=== PATIENT | female | born 1990 | race Caucasian/White ===

== ENCOUNTER 2018-12-09 19:00 | Inpatient (IN) | payer OTHER, SELFPAY ==
--- NOTE | 2018-12-09 20:03 | PCM.HP.OB ---
History Date of Admission: 12/09/18 Final JAGDEEP: 12/17/18 Final JAGDEEP Source: US <20 weeks Gestational age: 38 Weeks and 6 Days History of this : This is a 28 year-old, 2 para 0-0-1-0 at 38-6/7 weeks presents for cervical ripening for 39-week induction for suspected intrauterine growth restriction. Patient's was uncomplicated until 37 weeks she was noted to be measuring size less than dates. Estimated weight on ultrasound was 7th percentile. Amniotic fluid volume was normal. Denies any vaginal bleeding, leaking of fluid, or contractions. She reports good movement. Past medical history significant for abnormal Pap smears and ovarian cysts Past surgical history is significant for a LEEP of the cervix Surgical history: 1 first trimester miscarriage, no D&C Smoking Status: Never smoker Alcohol: None Number of Fetus(es): 1 Heart Tracing: Normal baseline, moderate variability, spontaneous accelerations. No decelerations, category 1 and reactive TOCO Analysis: Rare contractions, the patient does not appreciate them History Past Pregnancies: Past Pregnancies Delivery Date Name GA/Weeks Outcome Route Weight Gender Labor Length Anesthesia Delivery Location Provider FOB Expected Delivery Method: Spontaneous Vaginal Review of Systems Constitutional: Denies: Anorexia, Chills, Fever Eyes: Denies: Double vision Cardiovascular: Denies: Chest Pain, Edema Respiratory: Denies: Cough, Shortness of Breath Gastrointestinal: Denies: Nausea, Vomiting Gynecological: Denies: Vaginal bleeding, Vaginal discharge, Vaginal itching Skin: Denies: Rash Neurological: Denies: Balance problems, Double vision, Change in Speech, Headaches Hematologic/ Lymphatic: Denies: Anemia, Easy Bruising, Easy Bleeding, Hx of blood clot Physical Exam General: Alert, Cooperative, No apparent distress Cardiovascular: Regular rate Lungs: Normal air movement Abdomen: Soft, Non Tender, Non-Distended, Gravid, Appropriate for Gestational Age Extremities:: No edema Neurological: Cranial nerves II-XII grossly intact, Deep Tendon Reflexes 2+/4 and Symmetrical 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 Plan 39-week induction of labor for suspected intrauterine growth restriction. Pelvis is clinically adequate to expect vaginal delivery. May have nitrous oxide, Nubain or epidural as needed for pain control. Risk benefits and alternatives to induction were discussed with patient, questions were answered her satisfaction and she desired to proceed. Consent was signed. Procedure note: Blount placed into internal cervical os and inflated to 30 cc. Placement over internal os confirmed. Patient and fetus tolerated the procedure well. Will give one dose of cytotec, then pitocin titration
[2018-12-09] MEDS: 0.9% Normal Saline 100 ML IV.SOLN. INTRA-UTER (20:19)
[2018-12-09 20:31] LABS: Absolute Lymphocyte Count 1.64 X10^3/uL (0.83-4.51); Absolute Neutrophil Count 5.7 X10^3/uL (2.0-7.7); Basophil# 0.01 X10^3/uL; Basophil% 0.1 % (0-1); Eosinophil# 0.01 X10^3/uL; Eosinophils% 0.1 % (0-5); Hematocrit 35.4 % (37-47); Hemoglobin 12.7 g/dL (12.0-15.0); Lymphocyte # 1.64 X10^3/ul (4.0); Lymphocyte % 20.2 % (19-41); Mean Corp Hgb Conc 35.9 g/dL (32-36); Mean Corpuscular Hgb 33.3 pg (27.0-32.0); Mean Corpuscular Volume 92.9 fL (81-99); Mean Platelet Vol. 13.1 fl (6.2-12.0); Monocyte# 0.71 X10^3/uL; Monocyte% 8.8 % (0-10); NRBC Flagged by Analyzer 0 % (0-5); Neutrophil % 70.4 % (47-70); Platelet Count 134 K/mm3 (150-450); RBC Distribution Width CV 11.7 % (11.6-14.6); RBC Distribution Width SD 39.8 fl (35.1-43.9); Red Blood Count 3.81 M/mm3 (4.2-5.4); White Blood Count 8.1 K/mm3 (4.4-11.0)
[2018-12-09 20:45] VITALS: BMI 26.4
[2018-12-09] MEDS: 0.9% Saline Lock 10 ML Syringe IV (20:50)
[2018-12-09] MEDS: CLARIFY ORDER NOTE (20:57)
[2018-12-10] MEDS: Lactated Ringers 1,000 ML 50 ML IV ×2 (01:37→11:56)
[2018-12-10] MEDS: 0.9% Saline Lock 10 ML Syringe IV (02:30)
[2018-12-10] MEDS: fentaNYL-bupivacaine (epidural) 100 ML BAG EPIDURAL (07:43)
[2018-12-10] MEDS: Oxytocin 30 units/NS 500 ml 30 UNITS/500 ML IV.SOLN 334 UNITS IV (12:32)
[2018-12-10] MEDS: Methylergonovine 0.2 MG/ML Ampul IM (12:41)
--- NOTE | 2018-12-10 12:46 | OP.PCM_ITS ---
Vaginal Delivery Maternal Presentation: Medically Indicated Induction Method of Induction: Blount Bulb, Amniotomy, Cytotec Medical Reason for Induction: - - suspected IUGR Amniotic Membrane Rupture Type: Artificial Amniotic Fluid Description: Clear Final JAGDEEP: 12/17/18 Final JAGDEEP Source: US <20 weeks Gestational age: 39 Weeks and 0 Days Date of Procedure: 12/10/18 Pre-Operative Diagnosis: labor Post-Operative Diagnosis: same Surgery/ Procedure Performed: Spontaneous Vaginal Delivery Type of Anesthesia: Epidural Description of Procedure: A vigorous female was delivered MARYANNE over a small first-degree perineal l aceration. The infant was delivered through the loose nuchal cord easily without difficulty. The remainder the infant was delivered with maternal pushing and gentle traction only in less than 15 seconds. The Pitocin infusion was initiated for active management of the third stage. The cord was clamped and cut after 1 minute. The infant was attended to by the waiting nursing staff. The placenta was delivered spontaneously and was small with a very thin cord. The uterus was explored and a small piece of membranes was removed. The cervix and vagina were intact. All first-degree laceration was repaired with a 3-0 Vicryl repeat [id number] stitch. Sponge and needle counts were correct. There was a small amount of trickling with fundal massage, the uterus to be firm again. After a few minutes massage was performed and a small clot was expressed. So decision was made to give 1 dose of Methergine for mild atony without hemorrhage. A vaginal sweep was completed by me. Presentation: MARYANNE Placental Delivery Description: Spontaneous Placenta Disposition: [facility] Cord Vessel Description: 3 Vessels Nuchal Cord Compression: With compression Cord Entanglement: Around neck x 1, loose Drain: - - none Estimated Blood Loss: 400 A gender: Female (1 minute): 8 (5 minute): 9 Episiotomy Description: None Laceration: 1st degree - perineal Medications given after delivery: IV Pitocin, IM Methergin - x1 Complications: None
[2018-12-10] MEDS: Oxytocin 30 units/NS 500 ml 30 UNITS/500 ML IV.SOLN 167 UNITS IV (13:02)
[2018-12-10] MEDS: Ibuprofen 600 MG Tablet PO (17:50)
[2018-12-10 18:20] VITALS: BP 122/73; PULSE 64; RESP 14; TEMP 36.3
[2018-12-10 19:45] VITALS: BP 123/81; PULSE 61; RESP 15; TEMP 36.1
[2018-12-10] MEDS: Acetaminophen 500 MG Tablet 1000 MG PO (21:52)
[2018-12-11 00:28] VITALS: BP 117/72; PULSE 62; RESP 16; TEMP 37; O2SAT 97
[2018-12-11 04:17] VITALS: BP 122/77; PULSE 63; RESP 15; TEMP 36.1
--- NOTE | 2018-12-11 07:32 | PCM.PN.OB ---
Subjective: Pain well controlled. Average lochia. - Physical Exam General: Alert, Cooperative, No apparent distress Vital Signs Temp Pulse Resp BP Pulse Ox 97.0 F L 63 15 122/77 H 97 12/11/18 04:17 12/11/18 04:17 12/11/18 04:17 12/11/18 04:17 12/11/18 00:28 Oxygen Delivery Method Room Air Weight: 63.503 kg Body Mass Index (BMI) 26.4 Intake and Output for Last 24 Hours 12/09/18 12/10/18 12/11/18 23:59 23:59 23:59 Intake Total 200 / 200 2346 / 2346 Output Total 150 / 150 3200 / 3200 Balance 50 / 50 -854 / -854 Medical Necessity - Tobacco Use Smoking Status: Never smoker Assessment/Plan day #1 status post vaginal delivery. Infant is breast-feeding doing well. Routine care for patient. Likely discharge both home tomorrow.
[2018-12-11] MEDS: Ibuprofen 600 MG Tablet PO ×2 (08:56→15:43)
[2018-12-11 09:03] VITALS: BP 115/68; PULSE 70; RESP 16; TEMP 36.6
[2018-12-11 11:41] VITALS: BP 119/68; PULSE 66; RESP 16; TEMP 36.6
[2018-12-11 16:00] VITALS: BP 124/73; PULSE 67; RESP 15; TEMP 36.6
[2018-12-11] MEDS: Senna/Docusate Sodium 1 Tablet PO (19:07)
[2018-12-11 20:15] VITALS: BP 111/69; PULSE 62; RESP 16; TEMP 36.5; O2SAT 98
[2018-12-12 02:45] VITALS: BP 125/87; PULSE 57; RESP 16; TEMP 36.5; O2SAT 97
[2018-12-12] MEDS: Ibuprofen 600 MG Tablet PO (05:37)
--- NOTE | 2018-12-12 08:03 | PCM.PN.OB ---
Subjective: Pain well controlled, average lochia. - Physical Exam General: Alert, Cooperative, No apparent distress Vital Signs Temp Pulse Resp BP Pulse Ox 97.7 F L 57 L 16 125/87 H 97 12/12/18 02:45 12/12/18 02:45 12/12/18 02:45 12/12/18 02:45 12/12/18 02:45 Oxygen Delivery Method Room Air Weight: 63.503 kg Body Mass Index (BMI) 26.4 Intake and Output for Last 24 Hours 12/10/18 12/11/18 12/12/18 23:59 23:59 23:59 Intake Total 2346 / 2346 Output Total 3200 / 3200 Balance -854 / -854 Medical Necessity - Tobacco Use Smoking Status: Never smoker Assessment/Plan day #2 status post vaginal delivery. Patient is doing well. Discharge home with routine instructions. Infant is breast-feeding and doing well.
--- NOTE | 2018-12-12 08:04 | DCINST_ITS ---
Discharge Diet: No Restrictions Discharge Activity: Return to Normal Activity, May not drive while taking narcotic pain medications., May Shower May resume sexual activity in: 4-6 weeks Additional Activity Instructions:: Nothing in the vagina for 4-6 weeks. You may return to work/school in 6 weeks. Call your doctor if your incision/area has: Continuous Slow Oozing, Sudden Increased Bleeding, Increased Pain/ Swelling, Increased Redness, Foul Smelling Discharge Additional Instructions: If you experience any of the following, contact your healthcare provider. * Bleeding that soaks a pad every hour for 2 hours * Fever 100.4 or higher * Unrelieved incision or abdominal pain * Swelling, redness, discharge or bleeding from your incision or episiotomy site * Your incision begins to separate * Problems urinating (including inability to urinate or burning while urinating). * Visual changes * Severe headache * Flu-like symptoms * Pain or redness in one of both of your breasts * Pain, warmth, tenderness or swelling in your legs, especially the calf area * Frequent nausea and vomiting * Symptoms of depression or anxiety If you experience any of the following, call 911 or go to the nearest Emergency Room. * Chest pain * Problems breathing * Seizure activity * Partial or complete paralysis of a body part, slurred speech, weakness or drooping of the face, or a sudden inability to walk or hold your balance Allergies/Adverse Reactions: Allergies No Known Allergies Allergy (Verified 12/09/18 20:38) Medications to take at Discharge Fish Oil Concentrate Softgel PO DAILY 12/09/18 Vit,Calc76/Iron/Folic [Pnv 29-1 Tablet] 12/09/18 Please Follow Up With: Wilma Bhagat MD - [phone] When: Call to make an appointment with your doctor in 6 weeks. If you had elevated Blood Pressure or 4th degree laceration you will need to be seen in 2 weeks. Primary Care Physician: Care Physician,No Primary [Primary Care Provider] - Test Results: Test results from this visit will be discussed in further detail at your follow- up appointment, if applicable.
--- NOTE | 2018-12-12 08:04 | PCM.DCVAG ---
Discharge Diet: No Restrictions Discharge Activity: Return to Normal Activity, May not drive while taking narcotic pain medications., May Shower May resume sexual activity in: 4-6 weeks Additional Activity Instructions:: Nothing in the vagina for 4-6 weeks. You may return to work/school in 6 weeks. Call your doctor if your incision/area has: Continuous Slow Oozing, Sudden Increased Bleeding, Increased Pain/ Swelling, Increased Redness, Foul Smelling Discharge Additional Instructions: If you experience any of the following, contact your healthcare provider. Bleeding that soaks a pad every hour for 2 hours Fever 100.4 or higher Unrelieved incision or abdominal pain Swelling, redness, discharge or bleeding from your incision or episiotomy site Your incision begins to separate Problems urinating (including inability to urinate or burning while urinating). Visual changes Severe headache Flu-like symptoms Pain or redness in one of both of your breasts Pain, warmth, tenderness or swelling in your legs, especially the calf area Frequent nausea and vomiting Symptoms of depression or anxiety If you experience any of the following, call 911 or go to the nearest Emergency Room. Chest pain Problems breathing Seizure activity Partial or complete paralysis of a body part, slurred speech, weakness or drooping of the face, or a sudden inability to walk or hold your balance Allergies/Adverse Reactions: Allergies No Known Allergies Allergy (Verified 12/09/18 20:38) Medications to take at Discharge Fish Oil Concentrate Softgel PO DAILY 12/09/18 Vit,Calc76/Iron/Folic [Pnv 29-1 Tablet] 12/09/18 Please Follow Up With: Wilma Bhagat MD - [phone] When: Call to make an appointment with your doctor in 6 weeks. If you had elevated Blood Pressure or 4th degree laceration you will need to be seen in 2 weeks. Primary Care Physician: Care Physician,No Primary [Primary Care Provider] - Test Results: Test results from this visit will be discussed in further detail at your follow-up appointment, if applicable.
[2018-12-12 08:50] VITALS: BP 121/83; PULSE 72; RESP 18; TEMP 36.4
== END 2018-12-12 12:50 | disposition home or self-care (01) | DRG 807 ==
PROVIDERS: Admitting Provider Obstetrics & Gynecology; Visit Provider Obstetrics & Gynecology
DX: O36.5930 Maternal care for other known or suspected poor fetal growth, third trimester, not applicable or unspecified (principal); Z37.0 Single live birth; O75.89 Other specified complications of labor and delivery; O70.0 First degree perineal laceration during delivery; O69.1XX0 Labor and delivery complicated by cord around neck, with compression, not applicable or unspecified; Z3A.39 39 weeks gestation of pregnancy
CPT/HCPCS: 59025; 59050; 85025; 86850; 86900; 99218; J7120; A4216; G0378

== ENCOUNTER → 2020-05-06 17:34 | Outpatient (CLI) | payer MEDICAID, SELFPAY | PROVIDERS: Visit Provider Obstetrics & Gynecology | DX: Z03.818 Encounter for observation for suspected exposure to other biological agents ruled out (principal) | CPT/HCPCS: 87635; C9803; U0003 ==

== ENCOUNTER 2020-05-09 23:30 | Inpatient (IN) | payer MEDICAID, SELFPAY ==
[2020-05-09 23:22] VITALS: BP 140/93; PULSE 72; TEMP 36.5
[2020-05-09 23:33] VITALS: BP 129/89; PULSE 69
[2020-05-09 23:43] VITALS: BP 126/84; PULSE 62
[2020-05-09 23:49] VITALS: BMI 27.1
[2020-05-10] VITALS (39 sets, daily range): BP systolic 102–160; BP diastolic 55–80; PULSE 62–86; RESP 16–18; TEMP 36.7–37.4; O2SAT 83–100
[2020-05-10 00:13] LABS: ROM Internal Control Test YES-OK TO RESULT pt. (Internal QC)
[2020-05-10 00:14] LABS: ROM Patient Test POSITIVE (Negative)
[2020-05-10] MEDS: Lactated Ringers 500 ML 999 ML IV (00:33)
[2020-05-10 00:53] LABS: Absolute Lymphocyte Count 2.25 X10^3/uL (0.83-4.51); Absolute Neutrophil Count 6.5 X10^3/uL (2.0-7.7); Hematocrit 38.6 % (37-47); Hemoglobin 13.6 g/dL (12.0-15.0); Lymphocyte # 2.25 X10^3/ul (4.0); Lymphocyte % 23.2 % (19-41); Mean Corp Hgb Conc 35.2 g/dL (32-36); Mean Corpuscular Hgb 31.9 pg (27.0-32.0); Mean Corpuscular Volume 90.4 fL (81-99); Mean Platelet Vol. 13.3 fl (6.2-12.0); Monocyte# 0.87 X10^3/uL; NRBC Flagged by Analyzer 0 % (0-5); Neutrophil # 6.54 X10^3/uL (2.7-7.7); Neutrophil % 67.4 % (47-70); Platelet Count 127 K/mm3 (150-450); RBC Distribution Width CV 12.3 % (11.6-14.6); RBC Distribution Width SD 40.3 fl (35.1-43.9); Red Blood Count 4.27 M/mm3 (4.2-5.4); White Blood Count 9.7 K/mm3 (4.4-11.0)
[2020-05-10] MEDS: Lactated Ringers 1,000 ML 200 ML IV (01:04)
[2020-05-10] MEDS: fentaNYL-bupivacaine (epidural) 100 ML BAG EPIDURAL (01:39)
--- NOTE | 2020-05-10 01:50 | HP.PCM_ITS ---
- Problem List (1) H/O LEEP Status: Acute (2) Short interval between pregnancies affecting , antepartum Status: Acute (3) IUGR (intrauterine growth restriction) in prior , Status: Acute (4) Positive GBS test Status: Acute (5) History of HPV infection Status: Acute (6) Active labor at term Status: Acute History Date of Admission: 12/09/18 Final JAGDEEP: 05/18/20 Final JAGDEEP Source: US <20 weeks Gestational age: 38 Weeks and 6 Days History of this : This is a 29 year-old, G [3], P [1011], at 38 weeks 6 days gestational age. Presented with contractions and SROM at 9pm this evening. Upon arrival cervical change and ROM plus positive and admitted for labor. Allergies No Known Allergies Allergy (Verified 05/09/20 23:50) Home Medications: Home Medications Fish Oil Concentrate Softgel PO DAILY 12/09/18 Vit,Calc76/Iron/Folic [Pnv 29-1 Tablet] 1 tab DAILY 12/09/18 Smoking Status: Never smoker Alcohol: None Number of Fetus(es): 1 NST - FHR Rate Baby A Baseline: 125 Variability:: Moderate Accelerations:: 15 x 15 Decelerations:: None NST Reactive:: Yes FHR Category:: Category I Uterine Activity:: Every 2-3 minutes, strong History Past Pregnancies: Past Pregnancies Delivery Date Name GA/ Weeks Outcome Route Wt Infant Sex Labor Length Anesthesia Delivery Location Provider FOB Labs: Mom's Problem List Problem Status Onset Code H/O LEEP Acute Z98.890 Short interval between pregnancies affecting , antepartum Acute O09.899 IUGR (intrauterine growth restriction) in prior , Acute O09.299 Positive GBS test Acute B95.1 History of HPV infection Acute Z86.19 Active labor at term Acute Mom's Labs & Results 05/09/20 05/10/20 05/10/20 23:20 00:34 00:34 WBC 9.7 RBC 4.27 Hgb 13.6 Hct 38.6 MCV 90.4 MCH 31.9 MCHC 35.2 RDW Std Deviation 40.3 RDW Coeff of Kristy 12.3 Plt Count 127 L MPV 13.3 H Immature Gran % (Auto) 0.400 Neut % (Auto) 67.4 Lymph % (Auto) 23.2 [place] % (Auto) 9.0 Eos % (Auto) 0.0 Baso % (Auto) 0.0 Absolute Neuts (auto) 6.5 Absolute Lymphs (auto) 2.25 Nucleated RBC % 0 Vag Amniotic Fld Detect POSITIVE H Blood Type O POSITIVE Antibody Screen NEGATIVE Course Did the patient receive Yes care? Labs Blood Type: O RH: POSITIVE RPR/VDRL/Syphilis Nonreactive Rubella status Immune HbSAg Negative Date Done: 11/05/19 Chlamydia Negative Gonorrhea Negative HIV/AIDS Non-Reactive Group B Strep: Positive Current Obstetrical History Gestational Diabetes No Incompetent Cervix No Infertility No IUGR No Macrosomia No Hypertension/Pre-eclampsia No Placenta Previa/Abruption No PTL/PROM No Uterine anomaly No Oligohydramnios No Polyhydramnios No Multiple gestation No Past Medical History Asthma No Diabetes No Hypertension No Heart disease No Mitral valve prolapse No Neurologic/Seizure disorder/ No Migraines Kidney disease No Liver disease No Varicosities No Clotting disorders/Hx of DVT No Thyroid Dysfunction No Other medical diseases No Psychiatric disorders No Major trauma No Abnormal PAP smear No Sleep apnea No Mammogram in the last 2 years No Social History Marital Status: Alleged father James Blackman Hx Smoking No Smoking Status Never smoker Expected Infant Delivery Method: Spontaneous Vaginal Review of Systems Constitutional: Denies: Chills, Fever, Weight Change HEENT: Denies: Head Aches, Sinus Congestion, Sinus Drainage Cardiovascular: Denies: Chest Pain, Palpitations Respiratory: Denies: Cough, Shortness of breath at rest, Sputum production Gastrointestinal: Denies: Abdominal Pain, Nausea, Vomiting Genitourinary: Denies: Dysuria Musculoskeletal: Denies: Joint Pain, Joint Tenderness Skin: Denies: Rash, Wounds Neurological: Denies: Numbness, Tingling, Focal weakness Psychiatric: Denies: Anxiety, Depression, Homicidal Ideations, Suicidal Ideations Hematologic/ Lymphatic: Denies: Easy Bruising, Easy Bleeding Physical Exam Vitals: Vital Signs Temp Pulse BP Pulse Ox 97.7 F L 86 125/78 H 99 05/09/20 23:22 05/10/20 01:48 05/10/20 01:46 05/10/20 01:48 General: Alert, Oriented x3 HEENT: Atraumatic, Normocephalic Cardiovascular: Regular rate, Regular Rhythm, No murmurs Lungs: Clear to auscultation, Normal air movement, No rhonchi, No wheeze Abdomen: Soft, Gravid Extremities:: No edema 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 A:Active labor at term Category 1 FHT SROM P: 1) Admit to labor and delivery 2) Routine labs. IV placement 3) GBS positive, PCN for prophylaxis 4) Epidural for pain management 5) History of COVID during . COVID negative on 05/06/20 6) [facility] physician, notified of patient status
[2020-05-10] MEDS: Oxytocin 30 units/NS 500 ml 30 UNITS/500 ML IV.SOLN 334 UNITS IV (03:12)
--- NOTE | 2020-05-10 03:24 | PCM.OPRPT ---
Problem List (1) H/O LEEP Status: Acute (2) Short interval between pregnancies affecting , antepartum Status: Acute (3) IUGR (intrauterine growth restriction) in prior , Status: Acute (4) Positive GBS test Status: Acute (5) History of HPV infection Status: Acute (6) Active labor at term Status: Acute (7) Vaginal delivery Status: Acute Vaginal Delivery Maternal Presentation: Active Labor Amniotic Membrane Rupture Type: Spontaneous at home - SROM at home, ROM plus positive. AROM for moderate amount of meconium stained fluid. Amniotic Fluid Description: Thick meconium Final JAGDEEP: 05/18/20 Final JAGDEEP Source: LMP Gestational age: 38 Weeks and 6 Days Date of Procedure: 05/10/20 Pre-Operative Diagnosis: Active Labor Post-Operative Diagnosis: Vaginal delivery Surgery/ Procedure Performed: Spontaneous Vaginal Delivery Type of Anesthesia: Epidural Description of Procedure: Progressed to complete, comfortable with epidural. 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 of viable male over intact perineum at 0309. APGARS 9,9. head delivered with nuchal hand, body forth coming. Placed on maternal abdomen, strong cry and vigorous. Mouth and nares suctioned for secretions. Pitocin started for active 3rd stage management. Cord clamped and cut after pulsations ceased. Placenta delivered intact, 3 vessel cord. Perineum inspected and intact. Fundus firm and hemostasis achieved. Vaginal sweep completed by me and sponge and instrument count correct. Mom and baby stable, planning to breastfeed, family bonding well. notified of delivery. Presentation: Vertex Placental Delivery Description: Spontaneous Placenta Disposition: [facility] Cord Vessel Description: 3 Vessels Cord Entanglement: None Estimated Blood Loss: 450 ml A gender: Male (1 minute): 9 (5 minute): 9 Episiotomy Description: None Laceration: None Medications given after delivery: IV Pitocin Complications: None
[2020-05-10] MEDS: Ibuprofen 600 MG Tablet PO ×3 (04:10→18:13)
--- NOTE | 2020-05-10 06:35 | NURSING ---
Epidural catheter removed, blue tip intact.
--- NOTE | 2020-05-10 06:40 | NURSING ---
Pt voided in shower for first void. Pt stated she felt that bladder is empty after voiding.
[2020-05-10] MEDS: 0.9% Saline Lock 10 ML Syringe IV (06:51)
[2020-05-10] MEDS: Acetaminophen 500 MG Tablet 1000 MG PO (09:15)
[2020-05-10] MEDS: Senna/Docusate Sodium 1 Tablet PO (11:49)
--- NOTE | 2020-05-10 11:59 | NURSING ---
using ice packs prn
[2020-05-11] MEDS: Ibuprofen 600 MG Tablet PO ×3 (00:40→13:37)
[2020-05-11] MEDS: Acetaminophen 500 MG Tablet 1000 MG PO ×2 (02:21→11:45)
[2020-05-11 03:34] VITALS: BP 116/70; PULSE 71
[2020-05-11 03:35] VITALS: BP 117/70; PULSE 71; RESP 16; TEMP 36.6
[2020-05-11 06:18] LABS: Hemoglobin 10.9 g/dL (12.0-15.0); Mean Corp Hgb Conc 34.1 g/dL (32-36); Mean Corpuscular Hgb 32.2 pg (27.0-32.0); Mean Corpuscular Volume 94.4 fL (81-99); Mean Platelet Vol. 12.3 fl (6.2-12.0); Platelet Count 109 K/mm3 (150-450); RBC Distribution Width CV 12.8 % (11.6-14.6); RBC Distribution Width SD 43.7 fl (35.1-43.9); Red Blood Count 3.39 M/mm3 (4.2-5.4)
--- NOTE | 2020-05-11 08:23 | PCM.PN.OB ---
Patient Problems: Active and Suspected Problems H/O LEEP (Acute) Short interval between pregnancies affecting , antepartum (Acute) IUGR (intrauterine growth restriction) in prior , (Acute) Positive GBS test (Acute) History of HPV infection (Acute) Active labor at term (Acute) Vaginal delivery (Acute) Subjective: Patient seen at bedside. Feeling good. Denies any pain. Currently without difficulty. Lochia decreasing. Ambulating and voiding without difficulty. Requesting discharge home later today. Denies any SOB, CP, or dizziness. Objective: HGB- 13.6 to 10.9 Platelets 127 to 109 - Physical Exam Vitals/I&O's: Vital Signs Temp Pulse Resp BP Pulse Ox 97.8 F 71 16 117/70 97 05/11/20 03:35 05/11/20 03:35 05/11/20 03:35 05/11/20 03:35 05/10/20 08:00 Oxygen Delivery Method Room Air Weight: 143 lb 4.807 oz Body Mass Index (BMI) 27.1 Intake and Output for Last 24 Hours 05/09/20 05/10/20 05/11/20 23:59 23:59 23:59 Intake Total 1525.0 / 1525.0 Balance 1525.0 / 1525.0 General: Alert, Oriented x3, Cooperative HEENT: Atraumatic Oral: Moist Mucosa Neck: Supple Lungs: Normal air movement Cardiovascular: Regular rate Abdomen: Bowel Sounds Present, Soft, Non Tender Extremities: No edema, Capillary Refill Less than 3 Seconds, No Calf Tenderness Skin: No rashes Neurological: Cranial nerves II-XII grossly intact Psych/Mental Status: Normal Affect, Appropriate Laboratory Results 05/11/20 06:07: WBC 8.0, RBC 3.39 L, Hgb 10.9 L, Hct 32.0 L, MCV 94.4, MCH 32.2 H, MCHC 34.1, RDW Std Deviation 43.7, RDW Coeff of Kristy 12.8, Plt Count 109 L, MPV 12.3 H Current Medications Acetaminophen (Acetaminophen 500 Mg Tablet) 1,000 mg PO Q8H PRN PRN PRN Reason: Pain Score 1-3 Last Admin: 05/11/20 02:21 Dose: 1,000 mg Documented by: Bisacodyl (Bisacodyl 10 Mg Suppository) 10 mg RECTAL UD PRN PRN Reason: If no BM Dibucaine (Dibucaine 30 Gm Tube) 1 applic TOPICAL TID PRN PRN; Protocol PRN Reason: Discomfort Hydrocortisone (Hydrocortisone 2.5% Crm) 1 applic TOPICAL TID PRN PRN; Protocol PRN Reason: Discomfort Ibuprofen (Ibuprofen 600 Mg Tablet) 600 mg PO Q6H PRN PRN PRN Reason: Pain Score 1-3 Last Admin: 05/11/20 06:41 Dose: 600 mg Documented by: Methylergonovine Maleate (Methylergonovine 0.2 Mg/Ml Ampul) 0.2 mg IM X1 PRN PRN Reason: Excess bleeding/uterine atony Ondansetron HCl (Ondansetron 4 Mg/2 Ml Vial) 4 mg IV Q4H PRN PRN PRN Reason: Nausea Senna/Docusate Sodium (Senna/Docusate Sodium 1 Tablet) 1 - 2 tablet PO DAILY PRN PRN PRN Reason: Constipation Last Admin: 05/10/20 11:49 Dose: 2 tablet Documented by: Simethicone (Simethicone 80 Mg Tablet) 80 mg PO PCHS PRN PRN Reason: Indigestion/Stomach pain Sodium Chloride (0.9% Saline Lock 10 Ml Syringe) 5 - 15 ml IV UD PRN PRN Reason: SALINE FLUSH Last Admin: 05/10/20 06:51 Dose: 10 ml Documented by: Medical Necessity - Tobacco Use Smoking Status: Never smoker Assessment/Plan All Active Problems H/O LEEP (Acute) Short interval between pregnancies affecting , antepartum (Acute) IUGR (intrauterine growth restriction) in prior , (Acute) Positive GBS test (Acute) History of HPV infection (Acute) Active labor at term (Acute) Vaginal delivery (Acute)
--- NOTE | 2020-05-11 08:27 | DCINST_ITS ---
Discharge Diet: No Restrictions Discharge Activity: Return to Normal Activity May resume sexual activity in: 6-8 weeks Additional Instructions: Start Ferrous Sulfate 325 mg daily for iron supplementation If you experience any of the following, contact your healthcare provider. * Bleeding that soaks a pad every hour for 2 hours * Fever 100.4 or higher * Unrelieved incision or abdominal pain * Swelling, redness, discharge or bleeding from your incision or episiotomy site * Your incision begins to separate * Problems urinating (including inability to urinate or burning while urinating). * Visual changes * Severe headache * Flu-like symptoms * Pain or redness in one of both of your breasts * Pain, warmth, tenderness or swelling in your legs, especially the calf area * Frequent nausea and vomiting * Symptoms of depression or anxiety If you experience any of the following, call 911 or go to the nearest Emergency Room. * Chest pain * Problems breathing * Seizure activity * Partial or complete paralysis of a body part, slurred speech, weakness or drooping of the face, or a sudden inability to walk or hold your balance Allergies/Adverse Reactions: Allergies No Known Allergies Allergy (Verified 05/09/20 23:50) Medications to take at Discharge Vit,Calc76/Iron/Folic [Pnv 29-1 Tablet] 1 tab DAILY 12/09/18 Primary Care Physician: Care Physician,No Primary [Primary Care Provider] - Test Results: Test results from this visit will be discussed in further detail at your follow- up appointment, if applicable. Proposed Discharge Date: 05/11/20
--- NOTE | 2020-05-11 08:27 | PCM.DCVAG ---
Discharge Diet: No Restrictions Discharge Activity: Return to Normal Activity May resume sexual activity in: 6-8 weeks Additional Instructions: Start Ferrous Sulfate 325 mg daily for iron supplementation If you experience any of the following, contact your healthcare provider. Bleeding that soaks a pad every hour for 2 hours Fever 100.4 or higher Unrelieved incision or abdominal pain Swelling, redness, discharge or bleeding from your incision or episiotomy site Your incision begins to separate Problems urinating (including inability to urinate or burning while urinating). Visual changes Severe headache Flu-like symptoms Pain or redness in one of both of your breasts Pain, warmth, tenderness or swelling in your legs, especially the calf area Frequent nausea and vomiting Symptoms of depression or anxiety If you experience any of the following, call 911 or go to the nearest Emergency Room. Chest pain Problems breathing Seizure activity Partial or complete paralysis of a body part, slurred speech, weakness or drooping of the face, or a sudden inability to walk or hold your balance Allergies/Adverse Reactions: Allergies No Known Allergies Allergy (Verified 05/09/20 23:50) Medications to take at Discharge Vit,Calc76/Iron/Folic [Pnv 29-1 Tablet] 1 tab DAILY 12/09/18 Primary Care Physician: Care Physician,No Primary [Primary Care Provider] - Test Results: Test results from this visit will be discussed in further detail at your follow-up appointment, if applicable. Proposed Discharge Date: 05/11/20
[2020-05-11 08:50] VITALS: BP 119/71; PULSE 73; RESP 18; TEMP 36.8
[2020-05-11 08:57] VITALS: BP 119/71; PULSE 73
[2020-05-11] MEDS: Senna/Docusate Sodium 1 Tablet PO (10:42)
[2020-05-11 14:28] VITALS: BP 115/68; PULSE 74
[2020-05-11 14:30] VITALS: BP 115/68; PULSE 74; RESP 16; TEMP 37.2
== END 2020-05-11 15:40 | disposition home or self-care (01) | DRG 560 ==
LOC: WPOUT 23:32 → WP 23:32
PROVIDERS: Admitting Provider Advanced Practice Midwife; Referring Provider Advanced Practice Midwife; Visit Provider Advanced Practice Midwife
DX: O42.02 Full-term premature rupture of membranes, onset of labor within 24 hours of rupture (principal); O77.0 Labor and delivery complicated by meconium in amniotic fluid; O99.824 Streptococcus B carrier state complicating childbirth; Z3A.38 38 weeks gestation of pregnancy; Z37.0 Single live birth; Z86.16 Personal history of COVID-19; Z87.59 Personal history of other complications of pregnancy, childbirth and the puerperium
CPT/HCPCS: 59025; 59050; 84112; 85025; 85027; 86850; 86900; 86901; 99218; J7120; A4216; G0378

== ENCOUNTER 2022-01-21 23:42 | Outpatient (CLI) | payer MEDICAID, SELFPAY ==
[2022-01-22 00:08] VITALS: PULSE 92; TEMP 37.5; O2SAT 99
[2022-01-22 00:10] VITALS: BP 133/68; PULSE 73; BMI 26.6
[2022-01-22 00:19] VITALS: TEMP 37.5
[2022-01-22 01:48] VITALS: PULSE 71; O2SAT 97
[2022-01-22 02:54] VITALS: PULSE 72; O2SAT 99
--- NOTE | 2022-01-22 07:47 | OB.TRI.NOTE ---
HPI - General General Date of Service: 01/22/22 HPI Narrative GAMAL ORDOÑEZ, is a 31 F @ 38.1 weeks who presents c/o ctx, r/o labor PFSH PFSH Home Medications vitamin no.76-iron,carbonyl 29 mg iron-folic acid 1 mg tablet 1 tab DAILY 12/09/18 [History Last Taken 01/21/22 09:00] Fish Oil 1 cap PO/SL DAILY 01/22/22 [History Last Taken 01/21/22 09:00] iron 1 tab PO/SL Check with primary doctor 01/22/22 [History Last Taken 01/21/22 09:00] Allergy/AdvReac Type Severity Reaction Status Date / Time No Known Allergies Allergy Verified 01/22/22 00:11 Social History Smoking Status: Never smoker History Elective abortions Hx Para 1 Spontaneous abortions Hx # Term Pregnancies Ectopic pregnancies Hx # Pregnancies Multiple births # of living children NST FHR Rate Baby A Baseline: 120 Variability:: Moderate Accelerations:: 15 x 15 Decelerations:: None NST Reactive:: Yes FHR Category:: Category I Uterine Activity:: irregular Assessment & Plan (1) 37 weeks gestation of : (2) False labor after 37 completed weeks of gestation: PLAN: Plan @ 37.1 weeks with contractions- not in labor 1) cervical exam stable- dc home 2) NST reactive- well being established
== END 2022-01-22 03:05 | disposition home or self-care (01) ==
LOC: WPOUT 23:49 → WP 23:49
PROVIDERS: Visit Provider Obstetrics & Gynecology
DX: O47.1 False labor at or after 37 completed weeks of gestation (principal); Z3A.37 37 weeks gestation of pregnancy
CPT/HCPCS: 59025; 59050; 99218; G0378

== ENCOUNTER 2022-02-03 06:45 | Inpatient (IN) | payer MEDICAID, SELFPAY ==
[2022-02-03] VITALS (43 sets, daily range): BP systolic 20–140; BP diastolic 55–80; PULSE 58–83; RESP 16–18; TEMP 36.4–37.1; O2SAT 97–100; BMI 26.2
[2022-02-03] MEDS: LACTATED RINGERS 500 ML 999 ML IV ×2 (06:50→07:56)
[2022-02-03 07:12] LABS: Absolute Lymphocyte Count 2.45 X10^3/uL (0.83-4.51); Absolute Neutrophil Count 5.5 X10^3/uL (2.0-7.7); Basophil# 0.02 X10^3/uL; Basophil% 0.2 % (0-1); Eosinophil# 0.02 X10^3/uL; Eosinophils% 0.2 % (0-5); Hematocrit 40.8 % (37-47); Lymphocyte # 2.45 X10^3/ul (0.83-4.51); Mean Corp Hgb Conc 34.3 g/dL (32-36); Mean Corpuscular Hgb 32.1 pg (27.0-32.0); Mean Corpuscular Volume 93.6 fL (81-99); Mean Platelet Vol. 13.5 fl (6.2-12.0); Monocyte# 0.72 X10^3/uL; Monocyte% 8.2 % (0-10); NRBC Flagged by Analyzer 0 % (0-5); Neutrophil # 5.51 X10^3/uL (2.7-7.7); Neutrophil % 62.9 % (47-70); Platelet Count 126 K/mm3 (150-450); RBC Distribution Width CV 12.1 % (11.6-14.6); Red Blood Count 4.36 M/mm3 (4.2-5.4); White Blood Count 8.8 K/mm3 (4.4-11.0)
[2022-02-03] MEDS: Lactated Ringers 1,000 ML 200 ML IV (07:21)
--- NOTE | 2022-02-03 07:35 | HP.PCM.OB_ITS ---
HPI - General General Date of Admission: 02/03/22 Date of Service: 02/03/22 HPI Narrative GAMAL ORDOÑEZ, is a 31 F who presents c/o contractions- no VB or LOF. on arrival she was 6cm. PFSH [facility] Home Medications vitamin no.76-iron,carbonyl 29 mg iron-folic acid 1 mg tablet 1 tab PO DAILY 12/09/18 [History Last Taken 02/02/22 08:00] Fish Oil 1 cap PO/SL DAILY 01/22/22 [History Last Taken 02/02/22 08:00] iron 1 tab PO/SL DAILY Check with primary doctor 01/22/22 [History Last Taken 02/02/22 08:00] Allergy/AdvReac Type Severity Reaction Status Date / Time No Known Allergies Allergy Verified 01/22/22 00:11 Social History Smoking Status: Never smoker History Elective abortions Hx Para 2 Spontaneous abortions Hx # Term Pregnancies Ectopic pregnancies Hx # Pregnancies Multiple births # of living children NST FHR Rate Baby A Baseline: 125 Variability:: Moderate Accelerations:: 15 x 15 Decelerations:: None NST Reactive:: Yes FHR Category:: Category I Uterine Activity:: q2-4 Vital Signs Vital Signs Vital Signs: 02/03/22 06:45 02/03/22 06:45 02/03/22 06:46 Temperature Temperature Source Temporal Pulse Rate 79 Blood Pressure 125/78 H BP Systolic 125 BP Diastolic 78 Pulse Ox 02/03/22 06:46 02/03/22 07:05 02/03/22 07:05 Temperature 97.5 F L Temperature Source Pulse Rate 77 Blood Pressure BP Systolic BP Diastolic Pulse Ox 98 02/03/22 07:10 02/03/22 07:10 02/03/22 07:32 Temperature Temperature Source Pulse Rate 77 Blood Pressure 130/67 H BP Systolic 130 BP Diastolic 67 Pulse Ox 99 02/03/22 07:32 02/03/22 07:31 02/03/22 07:31 Temperature Temperature Source Temporal Pulse Rate 70 Blood Pressure BP Systolic BP Diastolic Pulse Ox 100 02/03/22 07:31 Temperature 98.7 F Temperature Source Pulse Rate Blood Pressure BP Systolic BP Diastolic Pulse Ox Weight Weight: 63.049 kg Body Mass Index (BMI) 26.2 Physical Exam Const alert and oriented x3 General Appearance: cooperative HEENT normocephalic GI GI Narrative: Gravid, non tender to palpation. OB / External & Speculum: external exam normal Extremity normal to inspection Skin no rashes or lesions noted Neuro oriented x3 and CN's II-XII intact bilaterally Psych Appearance: grossly normal Labs Labs Labs: Blood Type O POSITIVE Antibody Screen NEGATIVE Hct 40.8 % (37-47) Hgb 14.0 g/dL (12.0-15.0) Rhogam given: No Assessment & Plan (1) 39 weeks gestation of : (2) Active labor: (3) Short interval between pregnancies affecting , antepartum: (4) H/O LEEP: PLAN: Plan Admit to L&D [place] FHR/TOCO Epidural if requested for pain Monitor VS Anticipate
[2022-02-03] MEDS: fentaNYL-bupivacaine (epidural) 100 ML BAG EPIDURAL (07:42)
[2022-02-03] MEDS: Ondansetron 4 MG/2 ML Vial IV (07:59)
[2022-02-03] MEDS: Oxytocin 30 units/NS 500 ml 30 UNITS/500 ML IV.SOLN 334 UNITS IV (09:50)
--- NOTE | 2022-02-03 10:03 | EX.PCM.OBRPT ---
Assessment & Plan (1) 39 weeks gestation of : (2) (spontaneous vaginal delivery): Maternal Data Information Final JAGDEEP: 02/04/22 Gestational age: 39 6/7 Vaginal Delivery Maternal Presentation Maternal Presentation: Active Labor Operative Information Date of Procedure: 02/03/22 Pre-Operative Diagnosis: labor Post-Operative Diagnosis: same Surgery / Procedure Performed: Spontaneous Vaginal Delivery Type of Anesthesia: Epidural Special Medications: none Drain: - (none) Estimated Blood Loss: 300 Time of Delivery: 09:46 Findings Description of Procedure: A vigorous [female] infant was delivered [MARYANNE] over . The remainder the infant was delivered with maternal pushing and gentle traction only in less than 15 seconds. The Pitocin infusion was initiated for active management of the third stage. The cord was clamped and cut [after 1 minute]. The was attended to by the waiting nursing staff. The placenta was delivered spontaneously and intact. The cervix and vagina were intact. Sponge and needle counts were correct. A vaginal sweep was completed by me. The urethra was swabbed with Betadine and a straight cath was done in the usual sterile fashion and 50 cc of urine was obtained. Presentation: MARYANNE Amniotic Membrane Rupture Type: Artificial Amniotic Fluid Description: Moderate meconium Placental Delivery Description: Spontaneous Placenta Disposition: [facility] Cord Vessel Description: 3 Vessels Cord Entanglement: None Infant A Gender: Female (Keila) (1 minute): 8 (5 minute): 9 Delayed Cord Clamping: Yes Post Vaginal Delivery Medications Given After Delivery: IV Pitocin Episiotomy Description: None Laceration: None Complication Complications: None
[2022-02-03] MEDS: Ibuprofen 600 MG Tablet PO ×3 (10:59→23:16)
[2022-02-03] MEDS: Senna/Docusate Sodium 1 Tablet PO (10:59)
[2022-02-03] MEDS: 0.9% Saline Lock 10 ML Syringe IV (13:00)
[2022-02-03] MEDS: Acetaminophen 500 MG Tablet 1000 MG PO (19:54)
[2022-02-04 00:26] VITALS: BP 107/58; PULSE 59; RESP 15; TEMP 36.4
[2022-02-04] MEDS: Acetaminophen 500 MG Tablet 1000 MG PO (02:02)
[2022-02-04 04:00] VITALS: BP 99/62; PULSE 64; RESP 15; TEMP 36.4
[2022-02-04] MEDS: Ibuprofen 600 MG Tablet PO ×2 (05:19→11:14)
[2022-02-04 08:45] VITALS: BP 104/64; PULSE 70; RESP 16; TEMP 36.3; O2SAT 97
--- NOTE | 2022-02-04 08:50 | PCM.PN.OB ---
Subjective Subjective pain well controlled, light lochia. NO other concenrs Objective Data Objective Data Vital Signs: Vital Signs Temp Pulse Resp BP Pulse Ox 97.5 F L 64 15 99/62 97 02/04/22 04:00 02/04/22 04:00 02/04/22 04:00 02/04/22 04:00 02/03/22 12:03 Weight: 63.049 kg Body Mass Index (BMI) 26.2 Intake & Output: Intake and Output for Last 24 Hours 02/02/22 02/03/22 02/04/22 23:59 23:59 23:59 Intake Total 2393.34 / 2393.34 Output Total 350 / 350 Balance 2043.34 / 2043.34 Lab / Micro Data Result Diagrams: 02/03/22 06:50 Labs: Laboratory Results - last 24 hr 02/03/22 06:50: Blood Type O POSITIVE, Antibody Screen NEGATIVE Physical Exam Const alert and no apparent distress Narrative: Fundus firm, below umbilicus. Assessment & Plan (1) (spontaneous vaginal delivery): PLAN: Plan day #1. is breast-feeding and doing well. Patient is doing well. Desires discharge home later today.
--- NOTE | 2022-02-04 08:51 | PCM.DC.SUM ---
Providers Date of Admission: 02/03/22 Primary Care Physician: Nicol Primary Care Phys Reason For Visit: VAGINAL DELIVERY Diagnosis Discharge Diagnosis (1) (spontaneous vaginal delivery): Status: Acute Code(s): O80 - Encounter for full-term uncomplicated delivery Plan day #1. is breast-feeding and doing well. Patient is doing well. Desires discharge home later today. Medications at Discharge Home Medications vitamin no.76-iron,carbonyl 29 mg iron-folic acid 1 mg tablet 1 tab PO DAILY 12/09/18 Fish Oil 1 cap PO/SL DAILY 01/22/22 iron 1 tab PO/SL DAILY Check with primary doctor 01/22/22 Hospital Course Operations None Summary of Care Provided Hospital Course: Patient was admitted on the morning of 02/03/2022 with spontaneous labor. She has spontaneous vaginal delivery on 02/03/2022. By day 1 she was ambulating, urinating tolerating regular diet and desired discharge home with routine follow-up. Weight / BMI Weight Weight: 63.049 kg Body Mass Index (BMI) 26.2 ABG / Lab / Microbiology Data Result Diagrams: 02/03/22 06:50 Laboratory: Laboratory Results - last 24 hr 02/03/22 06:50: Blood Type O POSITIVE, Antibody Screen NEGATIVE D/C Instructions May resume sexual activity in: 6 weeks Please Follow Up With: Wilma Bhagat MD When: Follow up with our office in 1-2 and 6 weeks or as needed. [phone] Meaningful Use Info Meaningful Use Diagnoses (Choose all that apply): None applicable Discharge Plan Admission Admit Date/Time: 02/03/22 06:45 Primary Reason for Your Visit: Vaginal delivery Attending Provider: Wilma Bhagat Primary Care Provider: Care PhysicianNicol Primary Discharge Orders/Prescriptions Prescriptions: No Action vit,[id number] 1 EACH tablet 1 tab PO DAILY Fish Oil 1 cap PO/SL DAILY iron 1 tab PO/SL DAILY Referrals / Follow Up: Care PhysicianNicol Primary [Primary Care Provider] - Disposition Disposition (needs filled in before D/C Order can be placed): Home, Self Care
[2022-02-04] MEDS: Senna/Docusate Sodium 1 Tablet PO (11:14)
[2022-02-04 14:00] VITALS: BP 111/70; PULSE 65; RESP 16; TEMP 36.6; O2SAT 99
== END 2022-02-04 14:30 | disposition home or self-care (01) | DRG 560 ==
LOC: WPOUT 06:49 → WP 06:49
PROVIDERS: Obstetrics & Gynecology; Admitting Provider Obstetrics & Gynecology; Visit Provider Obstetrics & Gynecology
DX: O77.0 Labor and delivery complicated by meconium in amniotic fluid (principal); Z37.0 Single live birth; Z28.310 Unvaccinated for COVID-19; Z3A.39 39 weeks gestation of pregnancy; Z28.9 Immunization not carried out for unspecified reason
CPT/HCPCS: 59025; 59050; 85025; 86850; 86900; 86901; 99218; J7120; A4216; G0378; J2405

== ENCOUNTER 2023-12-26 05:11 | Inpatient (IN) | payer MEDICAID, SELFPAY ==
[2023-12-26] VITALS (32 sets, daily range): BP systolic 107–135; BP diastolic 63–92; PULSE 63–88; RESP 16; TEMP 36.7–37.3; O2SAT 93–100; BMI 27.0
[2023-12-26 05:04] LABS: ROM Internal Control Test YES-OK TO RESULT pt. (Internal QC); ROM Patient Test POSITIVE (Negative)
[2023-12-26 05:05] LABS: Record Kit Lot#, ROM+ K1866
[2023-12-26 05:49] LABS: Absolute Lymphocyte Count 1.52 X10^3/uL (0.83-4.51); Absolute Neutrophil Count 7.9 X10^3/uL (2.0-7.7); Basophil# 0.01 X10^3/uL; Basophil% 0.1 % (0-1); Eosinophil# 0.02 X10^3/uL; Eosinophils% 0.2 % (0-5); Hematocrit 38.6 % (37-47); Hemoglobin 13.6 g/dL (12.0-15.0); Lymphocyte # 1.52 X10^3/ul (0.83-4.51); Mean Corp Hgb Conc 35.2 g/dL (32-36); Mean Corpuscular Hgb 32.6 pg (27.0-32.0); Mean Corpuscular Volume 92.6 fL (81-99); Monocyte# 0.63 X10^3/uL; Monocyte% 6.2 % (0-10); NRBC Flagged by Analyzer 0 % (0-5); Neutrophil # 7.94 X10^3/uL (2.7-7.7); Neutrophil % 78.2 % (47-70); POSITIVE MORPHOLOGY YES; Platelet Count 128 K/mm3 (150-450); RBC Distribution Width CV 12.4 % (11.6-14.6); RBC Distribution Width SD 42.4 fl (35.1-43.9); Red Blood Count 4.17 M/mm3 (4.2-5.4); White Blood Count 10.2 K/mm3 (4.4-11.0)
[2023-12-26 05:53] LABS: Differential Indicated SCAN CRITERIA MET
[2023-12-26 06:23] LABS: Syphilis Antibodies Non-reactive
--- NOTE | 2023-12-26 06:41 | HP.PCM.OB_ITS ---
HPI - General General Date of Admission: 12/26/23 HPI Narrative GAMAL ORDOÑEZ, is a 33 F who presents at 39w5d in active labor. SROM for clear fluid while triage and contractions started. Maternal Data Information JAGDEEP Calculator Estimated Delivery Date Method Current WG Current Estimate 12/28/23 Manual 39w 5d PFSH PFSH Medical History (Updated 12/26/23 @ 07:29 by Adina Rivera CNM) Circumvallate placenta depression Anxiety Home Medications ?Medication ?Instructions ?Recorded ?Last Taken ?Type vitamin 1 tab PO DAILY 12/09/18 12/25/23 09:00 History no.76-iron,carbonyl 29 mg `1 tab iron-folic acid 1 mg tablet Fish Oil 1 cap PO/SL DAILY 01/22/22 12/25/23 09:00 History 1 cap iron 1 tab PO/SL DAILY Check with 01/22/22 02/02/22 08:00 History primary doctor Allergy/AdvReac Type Severity Reaction Status Date / Time No Known Allergies Allergy Verified 12/26/23 03:17 Surgical History (Updated 12/26/23 @ 05:36 by Opal Jeffries) [place] teeth removed H/O LEEP Social History Smoking Status: Never smoker History Elective abortions Hx Para 3 Spontaneous abortions Hx # Term Pregnancies Ectopic pregnancies Hx # Pregnancies Multiple births # of living children NST FHR Rate Baby A Baseline: 140, audible increases, no decreases IA ROS Constitutional Constitutional: Reports systems reviewed and no addt'l complaints, except as documented; Denies headache(s) Eyes Eyes: Denies acute decrease in peripheral vision, blurry vision or change in vision ENT HEENT: Reports systems reviewed and no addt'l complaints, except as documented Cardiovascular Cardiovascular: Denies chest pain or dizziness Respiratory/Chest Respiratory/Chest: Denies cough, dyspnea, dyspnea on exertion, shortness of breath at rest or shortness of breath with exertion Gastrointestinal Gastrointestinal: Denies diarrhea, nausea or vomiting Genitourinary Genitourinary: Denies abdominal discomfort Musculoskeletal Musculoskeletal: Denies limited range of motion Integumentary Integumentary: Reports systems reviewed and no addt'l complaints, except as documented Neurologic Neurologic: Reports systems reviewed and no addt'l complaints, except as documented Psychiatric Psychiatric: Reports systems reviewed and no addt'l complaints, except as documented Endocrine Endocrinology: Reports systems reviewed and no addt'l complaints, except as documented Hematologic/Lymphatic Hematologic/Lymphatic: Reports systems reviewed and no addt'l complaints, except as documented Allergic/Immunologic Allergic/Immunologic: Reports systems reviewed and no addt'l complaints, except as documented Vital Signs Vital Signs Vital Signs: 12/26/23 03:17 12/26/23 03:17 12/26/23 03:18 Pulse Rate 63 65 Blood Pressure 135/92 H BP Systolic 135 BP Diastolic 92 Pulse Ox 12/26/23 03:18 Pulse Rate Blood Pressure BP Systolic BP Diastolic Pulse Ox 100 Weight Weight: 143 lb 1.28 oz Body Mass Index (BMI) 27.0 Physical Exam Const alert and oriented x3 General Appearance: cooperative Orientation / Consciousness: awake, oriented to person, oriented to place and oriented to time Exam Limitations: no limitations HEENT normocephalic Head and Scalp: normal to inspection, normocephalic and atraumatic Face and Sinus: normal facial exam Eyes General Eye: normal appearance of both eyes Neck full ROM Chest Chest: symmetrical chest wall rise Resp normal respiratory effort and normal air movement Auscultation: clear to auscultation bilaterally Cardio regular rate, regular rhythm, S1 normal heart sound, S2 normal heart sound, no murmurs, no rub, no gallops and no clicks GI normal to inspection, nondistended, normoactive bowel sounds and non-tender appearance of the vagina normal Bladder / Kidney Exam: no CVA tenderness Back/Spine normal ROM Extremity normal to inspection and full ROM Skin no rashes or lesions noted Neuro oriented x3, CN's II-XII intact bilaterally and moves all extremities Sensorium / Orientation: awake, alert and oriented to person Motor Exam: clonus absent Deep Tendon Reflexes: Rt Patellar (L4): 2+ and Lt Patellar (L4): 2+ Labs Labs Labs: Blood Type O POSITIVE Antibody Screen NEGATIVE Hct 38.6 % (37-47) Hgb 13.6 g/dL (12.0-15.0) Syphilis Total Ab Non-reactive Rhogam given: No RPR negative Rubella Immune HepC Negative HBsAG negative HIV nonreactive O positive 1hr GCT normal GBS negative Assessment & Plan (1) Active labor at term: (2) Circumvallate placenta: (3) History of depression: (4) History of LEEP (loop electrosurgical excision procedure) of cervix complicating : PLAN: Plan 1) Admit to labor and delivery 2) Routine labs 3) Reactive NST, IA for labor and if reactive 4) Desires waterbirth, consent signed 5) collaborative physician and notified of patient status, above assessment, and plan 6) GBS negative
[2023-12-26 07:49] LABS: Platelet Morphology LARGE
[2023-12-26] MEDS: Oxytocin 15 Units/NS 250ml 15 UNITS/250 ML IV.SOLN 334 UNITS IV (10:24)
--- NOTE | 2023-12-26 10:44 | EX.PCM.OBRPT ---
Assessment & Plan (1) Vaginal delivery: Maternal Data Information JAGDEEP Calculator Estimated Delivery Date Method Current WG Current Estimate 12/28/23 Manual 39w 5d Vaginal Delivery Maternal Presentation Maternal Presentation: Active Labor and Spontaneous Rupture of Membranes Operative Information Date of Procedure: 12/26/23 Pre-Operative Diagnosis: Active labor at term, SROM Post-Operative Diagnosis: , waterbirth Surgery / Procedure Performed: Spontaneous Vaginal Delivery Type of Anesthesia: None Estimated Blood Loss: 300ml Time of Delivery: 10:13 Findings Description of Procedure: Progressed to complete with urge to push. Tub for pain management. of viable female infant over intact perineum, waterbirth. APGARS 7,9 respectively. head delivered with body immediately forthcoming. Placed on maternal abdomen, strong cry. Mouth and nares suctioned for secretions. Pitocin started for active 3rd stage management. Cord doubly clamped and cut by FOB after pulsations ceased, delayed cord clamping. Lifted out of tub and transferred back to bed without difficultly. Placenta delivered intact via melendez. 3 vessel cord intact. Perineum inspected and revealed intact. Fundus firm and hemostasis achieved. EBL 300ml. Mom and baby stable, planning to breastfeed. Family bonding well. notified of delivery. Presentation: Vertex and SIMON Amniotic Membrane Rupture Type: Spontaneous (Rupture of forebag at 8cm) Amniotic Fluid Description: Clear Placental Delivery Description: Spontaneous Placenta Disposition: [facility] Cord Entanglement: None Infant A Gender: Female (1 minute): 7 (5 minute): 9 Delayed Cord Clamping: Yes Post Vaginal Delivery Medications Given After Delivery: IV Pitocin Episiotomy Description: None Laceration: None Complication Complications: None
[2023-12-26] MEDS: Oxytocin 15 Units/NS 250ml 15 UNITS/250 ML IV.SOLN 83 UNITS IV (10:54)
[2023-12-26] MEDS: Senna/Docusate Sodium 1 Tablet PO (11:17)
[2023-12-26] MEDS: Ibuprofen 600 MG Tablet PO ×2 (11:18→17:21)
[2023-12-26] MEDS: Acetaminophen 500 MG Tablet 1000 MG PO (13:54)
[2023-12-26] MEDS: 0.9% Saline Lock 10 ML Syringe IV (17:22)
[2023-12-27] MEDS: Ibuprofen 600 MG Tablet PO ×2 (00:07→08:24)
[2023-12-27 00:08] VITALS: BP 119/73; PULSE 83; RESP 16; TEMP 36.7
[2023-12-27 04:24] VITALS: BP 114/79; PULSE 71; RESP 16; TEMP 36.4; O2SAT 98
[2023-12-27 06:56] LABS: Absolute Lymphocyte Count 1.63 X10^3/uL (0.83-4.51); Absolute Neutrophil Count 8.4 X10^3/uL (2.0-7.7); Basophil# 0.03 X10^3/uL; Basophil% 0.3 % (0-1); Eosinophil# 0.05 X10^3/uL; Eosinophils% 0.5 % (0-5); Hematocrit 32.9 % (37-47); Hemoglobin 11.5 g/dL (12.0-15.0); Lymphocyte # 1.63 X10^3/ul (0.83-4.51); Lymphocyte % 14.9 % (19-41); Mean Corpuscular Hgb 32.4 pg (27.0-32.0); Mean Corpuscular Volume 92.7 fL (81-99); Mean Platelet Vol. 12.5 fl (6.2-12.0); Monocyte# 0.75 X10^3/uL; Monocyte% 6.9 % (0-10); NRBC Flagged by Analyzer 0 % (0-5); Neutrophil # 8.41 X10^3/uL (2.7-7.7); Neutrophil % 76.8 % (47-70); Platelet Count 117 K/mm3 (150-450); RBC Distribution Width CV 12.6 % (11.6-14.6); RBC Distribution Width SD 42.9 fl (35.1-43.9); Red Blood Count 3.55 M/mm3 (4.2-5.4); White Blood Count 10.9 K/mm3 (4.4-11.0)
--- NOTE | 2023-12-27 08:13 | PN_ITS ---
Subjective Subjective patient seen at bedside, doing well. Patient reports good pain control. lochia mild. Objective Data Objective Data Vital Signs: Vital Signs Temp Pulse Resp BP Pulse Ox O2 Del Method 97.6 F L 71 16 114/79 98 Room Air 12/27/23 04:24 12/27/23 04:24 12/27/23 04:24 12/27/23 04:24 12/27/23 04:24 12/27/23 04:24 Oxygen Delivery Method Room Air Weight: 64.9 kg Body Mass Index (BMI) 27.0 Intake & Output: Intake and Output for Last 24 Hours 12/25/23 12/26/23 12/27/23 23:59 23:59 23:59 Intake Total 417 / 417 Output Total 550 / 550 Balance -133 / -133 Lab / Micro Data 12/27/23 06:50 Labs: Laboratory Results - last 24 hr 12/26/23 05:15: Antibody Screen NEGATIVE 12/27/23 06:50: WBC 10.9, RBC 3.55 L, Hgb 11.5 L, Hct 32.9 L, MCV 92.7, MCH 32.4 H, MCHC 35.0, RDW Std Deviation 42.9, RDW Coeff of Kristy 12.6, Plt Count 117 L, M PV 12.5 H, Immature Gran % (Auto) 0.600, Neut % (Auto) 76.8 H, Lymph % (Auto) 14.9 L, [place] % (Auto) 6.9, Eos % (Auto) 0.5, Baso % (Auto) 0.3, Absolute Neuts (auto) 8.4 H, Absolute Lymphs (auto) 1.63, Nucleated RBC % 0 Physical Exam Const alert and oriented x3 General Appearance: cooperative HEENT normocephalic Neck General: normal visual inspection GI soft to palpation and non-distended GI Narrative: Fundus firm Extremity normal to inspection and no calf tenderness Skin no rashes or lesions noted Neuro oriented x3 and CN's II-XII intact bilaterally Psych mental status grossly normal Assessment & Plan Assessment/Plan (1) Vaginal delivery: PLAN: Plan PPD#1 , Doing well Routine care pain mgmt ambulation dc home time spent with patient face to face on day of discharge was <30min
--- NOTE | 2023-12-27 08:14 | DCINST_ITS ---
Discharge Instructions Diet Discharge Diet: No restrictions Activity May resume sexual activity in: 6-8 weeks Dressing / Incision Call your doctor if you observe: Fever of 101 or Higher, Inability to urinate, Using more than 1 pad per hour and Uncontrolled pain Follow Up Care When: 1-2 weeks post and again at 6 weeks post . [phone] Test Results: Test results from this visit will be discussed in further detail at your follow- up appointment, if applicable. Discharge Plan Admission Admit Date/Time: 12/26/23 05:11 Attending Provider: Adina Rivera Primary Care Provider: Galdino PhysicianNicol Primary Discharge Orders/Prescriptions Prescriptions: New acetaminophen 500 mg Tablet 1,000 mg PO Q6H PRN PRN (Reason: Pain 1-10 Or Fever) Qty: 0 0RF ibuprofen 600 mg Tablet 600 mg PO Q6H PRN PRN (Reason: Pain Score 1-10) Qty: 0 0RF Continued vit,[id number] 1 EACH tablet 1 tab PO DAILY Fish Oil 1 cap PO/SL DAILY iron 1 tab PO/SL DAILY Referrals / Follow Up: Care Physician,Nicol Primary [Primary Care Provider] - Disposition Disposition (needs filled in before D/C Order can be placed): Home, Self Care
[2023-12-27 08:36] VITALS: BP 126/80; PULSE 65; RESP 16; TEMP 36.3
[2023-12-27] MEDS: Senna/Docusate Sodium 1 Tablet PO (09:30)
== END 2023-12-27 12:26 | disposition home or self-care (01) | DRG 560 ==
LOC: WPOUT 05:14 → WP 05:14
PROVIDERS: Admitting Provider Obstetrics & Gynecology; Referring Provider Obstetrics & Gynecology; Visit Provider Advanced Practice Midwife
DX: O42.02 Full-term premature rupture of membranes, onset of labor within 24 hours of rupture (principal); Z37.0 Single live birth; O43.113 Circumvallate placenta, third trimester; Z3A.39 39 weeks gestation of pregnancy; Z87.59 Personal history of other complications of pregnancy, childbirth and the puerperium
CPT/HCPCS: 59025; 59050; 84112; 85025; 86780; 86850; 86900; 86901; 99221; A4216; G0378

== ENCOUNTER → 2024-10-02 | Outpatient (CLI) | payer MEDICAID, SELFPAY ==
--- NOTE | 2024-10-02 14:34 | US_ITS ---
PROCEDURE: EXT NON VASC LIMITED/SOFT TISS 10/02/2024 REASON FOR EXAM: GANGLION CYST OF LEFT WRIST TECHNIQUE: Ultrasound targeted to the palpable abnormality at the left wrist. COMPARISON: None FINDINGS: Heterogeneous echogenic lesion in the dorsal aspect of the left wrist measuring 1.2 x 1.7 x 0.8 cm. No internal vascularity. US/Ext Non Vasc Limited/Soft Tiss IMPRESSION: Complex cysts as above. Reading Location: [id number]
== END | disposition home or self-care (01) ==
LOC: OPUS 14:33
PROVIDERS: Referring Provider Surgery Plastic and Reconstructive Surgery; Visit Provider Surgery Plastic and Reconstructive Surgery
DX: M67.432 Ganglion, left wrist (principal)
CPT/HCPCS: 76882

== ENCOUNTER 2024-11-05 06:09 | Day surgery (SDC) | payer MEDICAID, SELFPAY ==
[2024-11-05] VITALS (9 sets, daily range): BP systolic 93–122; BP diastolic 50–102; PULSE 54–73; RESP 16; TEMP 35.9–37.1; O2SAT 95–100; BMI 22.8
--- OUTSIDE RECORDS SUMMARY | 2024-11-05 06:14 | XMS RPT_ITS | CCD ---
Author Organization [facility] Care Team Providers Care Teller Head Name Role Phone Unavailable Primary Care Provider Unavailabl e PRAMOD, ZOE Attending Unavailable PRAMOD, ZOE Attending Unavailable PRAMOD, ZOE Referring Unavailable HUGO, BRIGIDO Attending Unavailable EBONY, HILDA Attending Unavailable DANIA, ADINA Attending Unavailable PLOTCARINE, CHERI Attending Unavailable RIVERA, ADINA Attending Unavailable WISWELL, MICHELLE Referring Unavailable WISWELL, MICHELLE Referring Unavailable MADDY SIMON Attending Unavail able DANIA, ADINA Attending Unavailable PLOTTS, CHERI Attending Unavailable PLOTTS, CHERI Attending Unavailable HUGO, BRIGIDO Attending Unavailable HUGO, BRIGIDO Referring Unavailable WISWELL, MICHELLE Attending Unavailable WISWELL, MICHELLE Referring Unavailable HUGO, BRIGIDO Referring Unavailable PLOTTS, CHERI Attending Unavailable EBONY, HILDA Attending Unavailable WISWELL, MICHELLE Attending Unavailable HILDA NIXON Referring Unavailable Care Physician, No Primary Primary Care Provider Unavailable Care Physician, No Primary Referring Provider Un available Jayme MANAGER POST-CShirley Attending Provider [phone] Dr. Jovani Tom MD Attending Provider Dr. Balwinder Richardson MD Attending Provider [phone] Balwinder Richardson MD Referring Provider [phone] Jayme MARSH-CShirley Referring Provider Balwinder Richardson Referring Unavailable Care Physician, No Primary Primary Care Unava ilable Balwinder Richardson Attending Unavailable Balwinder Richardson Referring Unavailable Care Physician, No Primary Primary Care Unava ilable Balwinder Richardson Attending Unavailable Balwinder Richardson Attending Unavailable Shirley Delacruz Referring Unavailable Care Physician, No Primary Primary Care Unava ilable Care Physician, No Primary Referring Unava ilable Care Physician, No Primary Primary Care Unava ilBalwinder Otto Attending Unavailable Shirley Delacruz Attending Unavailable Care Physician, No Primary Primary Care Unava ilable Care Physician, No Primary Referring Unava ilable Jvoani Tom Attending Unavailable Care Physician, No Primary Primary Care Unava ilable Adina Rivera Attending Unavailable Michelle Ho Admitting Unavailable Michelle Ho Referring Unavailable Care Physician, No Primary Primary Care Unava ilable Cheri Mercedes Admitting Unavailable Daren, Cheri Attending Unavailable Plotcarine Cheri Referring Unavailable Care Physician, No Primary Primary Care Unava ilable Medications Current Medications Medication Drug Class(es) Dates Sig (Normalized) Sig (Original) docosahexanoic acid/epa (FISH OIL ORAL) (20 sources) docosahexanoic a simone/epa (FISH OIL ORAL) Take by mouth once daily. Active docosahexanoic a simone/epa (FISH OIL ORAL) Take by mouth once daily. 0 Active Comment on above: Take by mouth once d aily. [place] (Nk) (2 sources) Start: 09-10-2024 [place] (Nk) Active September 10, 2024 12:00am PNV no.95/ferrous fum/folic ac ( ORAL) (20 sources) PNV no.95/ferrou s fum/folic ac ( ORAL) Take by mouth. Active PNV no.95/ferrou s fum/folic ac ( ORAL) Take by mouth. Active PNV no.95/ferrou s fum/folic ac ( ORAL) Take by mouth. 0 Active Comment on above: Take by mouth. Vit,Sipe09-Ldqa-Mvxq c (2 sources) Start: 12-09-2018 take 1 tablet by mouth once daily Vit,Ihdu89-Wwts-Abve c Active 1 TAB PO DAILY December 09, 2018 12:00am Start: 12-09-2018 Vit,C sai95-Urhn-Wlgdg Active 1 TAB DAILY December 09, 2018 12:00am Completed/Discontinued Medications Medication Drug Class(es) Dates Sig (Normalized) Sig (Original) acetaminophen 500 mg oral tablet (2 sources) Start: 12-27-2023 End: 09-06-2024 take 1-10 tablets by mouth every six hours as needed for pain Acetaminophen 500 mg Tablet Discontinued 1000 mg PO EVERY 6 HOURS NEEDED as needed for Pain 1-10 Or Fever 0 December 27, 2023 12:00am September 06, 2024 11:20am Fish Oil Concentrate Softgel (4 sources) Start: 12-09-2018 End: 05-10-2020 Fish Oil Concentrate Softgel Discontinued PO DAILY December 09, 2018 12:00am May 10, 2020 4:22am Fish Oils (4 sources) Start: 01-22-2022 End: 09-06-2024 Fish Oil Discontinued 1 NMA SL/PO DAILY January 22, 2022 12:00am September 06, 2024 11:20am Start: 01-22-2022 take 1 capsule by mo ut once daily Fish Oil Active 1 CAP SL/PO DAILY January 22, 2022 12:00am ibuprofen 600 mg oral tablet (2 sources) Nonsteroidal Anti-inflammatory Drug Start: 12-27-2023 End: 09-06-2024 take 1 tablet by mouth every six hours as needed for pain Ibuprofen 600 mg Tablet Discontinued 600 mg PO EVERY 6 HOURS NEEDED as needed for Pain Score 1-10 0 December 27, 2023 12:00am September 06, 2024 11:20am Iron (4 sources) Start: 01-22-2022 End: 09-06-2024 iron Discontinued 1 {tbl} SL/PO DAILY January 22, 2022 12:00am September 06, 2024 11:20am Start: 01-22-2022 take 1 tablet by marivel once daily iron Active 1 TABLET SL/PO DAILY January 22, 2022 12:00am Start: 01-22-2022 iron Active 1 TABLET SL/PO January 22, 2022 12:00am Vit,Kirw39-Ksci-Cnzjx 1 EACH tablet (2 sources) Start: 12-09-2018 End: 09-06-2024 take 1 tablet by mouth once daily Vit,Imkd27-Favn-Hwkuu 1 EACH tablet Discontinued 1 NMA PO DAILY December 09, 2018 12:00am September 06, 2024 11:20am Problems Active Problems Problem Classification Problem Date Documented Date Episodic/Chronic Early or threatened labor (2 sources) False labor at or after 37 completed weeks of gestation; Translations: [False labor at or after 37 completed weeks of gestation] Episodic Immunizations and screening for infectious disease (1 source) Vaccination needed; Translations: [Encounter for immunization] Episodic Other complications of (20 sources) Finding of pattern of ; Translations: [Supervision of other high risk pregnancies, unspecified trimester] Onset: 09-26-2019 Resolved: 02-14-2022 Episodic Other complications of (20 sources) Previous operation to cervix affecting ; Translations: [Maternal care for other abnormalities of cervix, unspecified trimester] Onset: 05-11-2018 05-27-2021 Episodic Other complications of (20 sources) Supervision of with other poor reproductive or obstetric history, unspecified trimester; Translations: [ with other poor obstetric history] Onset: 09-26-2019 Resolved: 02-14-2022 05-27-2021 Episodic Other complications of (1 source) Supervision of other high risk pregnancies, unspecified trimester; Translations: [Supervision of other high-risk ] Episodic Other complications of (20 sources) Placenta circumvallata; Translations: [Circumvallate placenta, second trimester] Onset: 08-10-2023 Resolved: 02-06-2024 08-10-2023 Episodic Other complications of (4 sources) Anomaly of placenta; Translations: [Malformation of placenta, unspecified, third trimester] 11-06-2023 Episodic Other connective tissue disease (7 sources) Ganglion cyst of left dorsal wrist; Translations: [Ganglion, left wrist] 09-06-2024 Episodic Other connective tissue disease (1 source) Ganglion, left wrist; Translations: [Ganglion, left wrist] Onset: 10-16-2024 Episodic Other infections; including parasitic (2 sources) History of human papilloma virus infection; Translations: [Personal history of other infectious and parasitic diseases] Episodic Other non-traumatic joint disorders (2 sources) Pain in wrist; Translations: [Pain in left wrist] 09-06-2024 Episodic Other non-traumatic joint disorders (1 source) Pain in left wrist; Translations: [Pain in left wrist] Onset: 09-06-2024 Episodic Residual codes; unclassified (2 sources) Gestation period, 16 weeks; Translations: [16 weeks gestation of ] Episodic Residual codes; unclassified (2 sources) Gestation period, 19 weeks; Translations: [19 weeks gestation of ] Episodic Residual codes; unclassified (1 source) Gestation period, 23 weeks; Translations: [23 weeks gestation of ] Episodic Residual codes; unclassified (1 source) Gestation period, 27 weeks; Translations: [27 weeks gestation of ] Episodic Residual codes; unclassified (1 source) Gestation period, 29 weeks; Translations: [29 weeks gestation of ] Episodic Residual codes; unclassified (1 source) Gestation period, 31 weeks; Translations: [31 weeks gestation of ] Episodic Residual codes; unclassified (1 source) Gestation period, 35 weeks; Translations: [35 weeks gestation of ] Episodic Residual codes; unclassified (3 sources) Gestation period, 36 weeks; Translations: [36 weeks gestation of ] Episodic Residual codes; unclassified (2 sources) Gestation period, 38 weeks; Translations: [38 weeks gestation of ] Episodic Residual codes; unclassified (4 sources) History of loop electrosurgical excision procedure; Translations: [Other specified postprocedural states] 02-12-2022 Episodic Residual codes; unclassified (3 sources) Gestation period, 39 weeks; Translations: [39 weeks gestation of ] Episodic Residual codes; unclassified (2 sources) Gestation period, 37 weeks; Translations: [37 weeks gestation of ] 12-07-2023 Episodic Residual codes; unclassified (1 source) 37 weeks gestation of ; Translations: [ state, incidental] Episodic Residual codes; unclassified (1 source) 39 weeks gestation of ; Translations: [ state, incidental] Episodic Residual codes; unclassified (1 source) Other specified postprocedural states; Translations: [Personal history of surgery to other organs] Episodic Residual codes; unclassified (1 source) Gestation period, 12 weeks; Translations: [12 weeks gestation of ] 06-15-2023 Episodic Residual codes; unclassified (1 source) Gestation period, 7 weeks; Translations: [Less than 8 weeks gestation of ] 06-15-2023 Episodic Residual codes; unclassified (1 source) Gestation period, 8 weeks; Translations: [8 weeks gestation of ] 06-15-2023 Episodic Residual codes; unclassified (2 sources) Gestation period, 20 weeks; Translations: [20 weeks gestation of ] 08-10-2023 Episodic Residual codes; unclassified (1 source) Gestation period, 24 weeks; Translations: [24 weeks gestation of ] 09-07-2023 Episodic Residual codes; unclassified (1 source) Gestation period, 28 weeks; Translations: [28 weeks gestation of ] 10-05-2023 Episodic Residual codes; unclassified (1 source) Gestation period, 30 weeks; Translations: [30 weeks gestation of ] 10-19-2023 Episodic Residual codes; unclassified (2 sources) Gestation period, 32 weeks; Translations: [32 weeks gestation of ] 11-06-2023 Episodic Residual codes; unclassified (1 source) Gestation period, 34 weeks; Translations: [34 weeks gestation of ] 11-17-2023 Episodic Residual codes; unclassified (2 sources) H/O: depression; Translations: [Personal history of other complications of , childbirth and the puerperium] 12-26-2023 Episodic Unclassified (2 sources) Normal labor; Translations: [Active labor at term] Unclassified (2 sources) Labor finding; Translations: [Active labor] Unclassified (16 sources) [facility] Education - COMMON Onset: 05-18-2023 05-18-2023 Unclassified (16 sources) Education - [place] Onset: 05-18-2023 05-18-2023 Past or Other Problems Problem Classification Problem Date Documented Date Episodic/Chronic Bacterial infection; unspecified site (20 sources) Bacteria present; Translations: [Streptococcus, group B, as the cause of diseases classified elsewhere] Onset: 04-23-2020 Resolved: 01-21-2022 04-23-2020 Episodic Other complications of (11 sources) Nausea and vomiting; Translations: [Vomiting of , unspecified] Onset: 05-11-2018 Resolved: 11-26-2018 11-26-2018 Episodic Other complications of (17 sources) Poor growth affecting management; Translations: [Maternal care for other known or suspected poor growth, third trimester, fetus 4] Onset: 11-26-2018 Resolved: 01-21-2019 01-21-2019 Episodic Other complications of (15 sources) High risk ; Translations: [Supervision of other high risk pregnancies, third trimester] Onset: 11-17-2023 Resolved: 02-06-2024 11-17-2023 Episodic Other complications of (6 sources) Vomiting of , unspecified; Translations: [Unspecified vomiting of , unspecified as to episode of care or not applicable] Onset: 05-11-2018 Resolved: 11-26-2018 11-26-2018 Episodic Other female genital disorders (20 sources) Cervical intraepithelial neoplasia grade 2; Translations: [Moderate cervical dysplasia] Onset: 08-22-2013 12-14-2017 Episodic Other and delivery including normal (20 sources) Normal ; Translations: [Encounter for supervision of other normal , first trimester] Onset: 05-18-2023 Episodic Other screening for suspected conditions (not mental disorders or infectious disease) (7 sources) Patient encounter status; Translations: [Encounter for other specified screening] Onset: 08-10-2023 Episodic Residual codes; unclassified (1 source) 28 weeks gestation of ; Translations: [28 weeks gestation of ] Onset: 11-06-2023 Episodic Residual codes; unclassified (1 source) 24 weeks gestation of ; Translations: [24 weeks gestation of ] Onset: 10-05-2023 Episodic Residual codes; unclassified (1 source) 16 weeks gestation of ; Translations: [16 weeks gestation of ] Onset: 07-13-2023 Episodic Screening and history of mental health and substance abuse codes (20 sources) H/O: anxiety state; Translations: [Personal history of other mental and behavioral disorders] Onset: 05-27-2021 05-27-2021 Episodic Sexually transmitted infections (not HIV or hepatitis) (17 sources) Human papillomavirus deoxyribonucleic acid test positive, high risk on cervical specimen; Translations: [Cervical high risk human papillomavirus (HPV) DNA test positive] Onset: 08-16-2013 Resolved: 08-22-2013 08-22-2013 Episodic Results Test Name Value Interpretation Reference Range [facility] Plastic Surgery Visit Report on 10-16-2024 Plastic Surgery Visit Report [facility] Plastic Reconstructive Surgery [address], [address] [place] [address] OFFICE VISIT Date of Service: 10/16/24 MR#: [id number] Acct: [id number] Name: HEIDY ORDOÑEZ Rep #: [id number] : 1990 Provider: Dr. Balwinder Richardson MD Age/Sex: 34/F Location: [facility] Status: Signed with Addenda ADDENDUM by Krystin León on 10/16/24 at 1450 Assessment and Plan (No Qualifiers) Assessment and Plan (1) Ganglion cyst of dorsum of left wrist: Status: Acute 10/16/24 4145 Date Balwinder Richardson MD cc: * Signed Intake Vital Signs 3 09/06/24 11:19 Height 5 ft 1 in Weight: 123 lb BMI 23.2 Intake Visit Reasons: ULTRASOUND RESULTS Chief Complaint: cyst on left wrist Allergies No Known Allergies Allergy (Verified 09/10/24 15:30) PFSH Medical History Circumvallate placenta depression Anxiety Surgical History [place] teeth removed H/O LEEP Social History Smoking Status: Never smoker HPI ULTRASOUND RESULTS Details: Heidy Ordoñez is a delightful 34-year-old female with no significant contributory past medical history who presents with a left wrist dorsal ganglion cyst as a referral from [facility] ([facility]). Patient reports that the cyst has been there for several years but has been getting larger recently and causes her an aching dull irritation pain after she uses her left wrist to carry her children. She has 4 young children, including a toddler and an 8-month-old. She is currently breast-feeding. Patient may have jammed her hand playing sports growing up but does not remember any severe trauma to the hand or wrist. She does have a history of doing [employer] and lifting weights, but she currently just does light/endurance weight lifting. No personal or family history of bleeding or clotting problems. She is not a smoker. 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 Here to discuss her ultrasound results and the timing of ganglion cyst removal. She reports that she has pain in the cyst from time to time, and would like it removed not aspirated. Exam Details Left Upper Extremity Examined again today Inspection: 3 x 3 cm dorsal wrist mass within the 3/4 interval Palpation: No SL ligament instability (negative Redmond shift test). The wrist mass is mobile. Motor: Able to bend and extend all MP, PIP, and DIP joints. Sensory: Intact to light touch on the radial and ulnar borders. No numbness on the dorsal radial hand Vascular: Finger tips are warm and well perfused with <2 second capillary refill. Photo from 11 October 2024: Coding Level of Care Code Off vis,est,level 2 Diagnoses Ganglion cyst of dorsum of left wrist M67.432 Assessment and Plan (No Qualifiers) Assessment and Plan (1) Ganglion cyst of dorsum of left wrist: Status: Acute Plan: We discussed the differential diagnosis for the mass. Common masses in the hand include ganglion cyst of tendon sheath, giant cell tumor of tendon sheath, and lipoma. All these masses are benign. We also discussed that over 95% of the masses found in the hand and fingers are benign, and not cancerous. Treatment options for these masses include observation vs surgical excision. Alternatively, if the mass is a ganglion cyst of tendon sheath may potentially be treated with needle puncture if it is located in the midline over the flexor tendon. When the ganglion cyst is located off mid-line, overlying the course of digital nerve and artery, needle puncture will run the risk of nerve/artery injury.??? Discussed post-operative splinting (1 month with wrist splint) and lifting precautions. Discussed risks of surgery like SBRN damage/nerve pain, infection, SL ligament disruption, infection, bleeding, and risks of anesthesia. After discussion, the patient would like to proceed with mass excision under local anesthesia [with] sedation. Plan to do this summer when the patient is done breast feeding and does not need to lift children as much (parents can assist). CPT codes for insurance prior authorization are as follows: 65038, [id number] Plan from 16 October 2024: I reiterated the above noted risks (including nerve injury and vessel ligament injury). We also talked about the risks of cyst recurrence, which is a possibility. We also talked about poor scarring. We discussed removal of the likely cyst and reviewed the ultrasound results. I talked to her about potential for persistent pain regardless of if we remove the cyst, and that there is no guarantees that removal of the cyst (more content not included)... Normal [facility] Ext Non Vasc Limited/Soft Ti sson 10-02-2024 Ext Non Vasc Limited/Soft Tiss [facility] [address] [place], [place] [id number] Ext Non Vasc Limited/Soft Tiss MR#: [id number] Acct: [id number] Name: HEIDY ORDOÑEZ Rep #: [id number] : 1990 F 34 From: Jose Kapadia MD PCP: Care Physician,No Primary Status: REG CLI Study: Ext Non Vasc Limited/Soft Tiss Date of Exam: 0 10/02/24 Exam# [id number] Ordering Dr: Balwinder Richardson MD PROCEDURE: EXT NON VASC LIMITED/SOFT TISS 10/02/2024 REASON FOR EXAM: GANGLION CYST OF LEFT WRIST TECHNIQUE: Ultrasound targeted to the palpable abnormality at the left wrist. COMPARISON: None FINDINGS: Heterogeneous echogenic lesion in the dorsal aspect of the left wrist measuring 1.2 x 1.7 x 0.8 cm. No internal vascularity. US/Ext Non Vasc Limited/Soft Tiss IMPRESSION: Complex cysts as above. Reading Location: [facility] CC: Dr. Balwinder Richardson MD; No Primary Care Physician Bookkeeping Clerk: Signed Normal [facility] Plastic Surgery Visit Report on 09-10-2024 Plastic Surgery Visit Report [facility] Plastic Reconstructive Surgery [address], [address] [place] [address] OFFICE VISIT Date of Service: 09/10/24 MR#: [id number] Acct: [id number] Name: HEIDY ORDOÑEZ Rep #: [id number] : 1990 Provider: Dr. Balwinder Richardson MD Age/Sex: 34/F Location: [place] [address] Status: Signed with Addenda ADDENDUM by Dr. Balwinder Richardson MD on 09/10/24 at 1801 Assessment and Plan (No Qualifiers) Assessment and Plan (1) Ganglion cyst of dorsum of left wrist: Status: Acute Plan: Also obtaining US 09/10/24 1801 Date Balwinder Richardson MD cc: * Signed Intake Vital Signs 3 09/06/24 11:19 Height 5 ft 1 in Weight: 123 lb BMI 23.2 Intake Visit Reasons: LEFT WRIST Chief Complaint: cyst on left wrist Is patient in pain?: No Allergies No Known Allergies Allergy (Verified 09/10/24 15:30) Medications 3 ???Medication ???Instructions ???Recorded ???Confirmed ???Type NK 09/10/24 09/10/24 History PFSH Medical History Circumvallate placenta depression Anxiety Surgical History [place] teeth removed H/O LEEP Social History Smoking Status: Never smoker HPI LEFT WRIST Details: Heidy Ordoñez is a delightful 34-year-old female with no significant contributory past medical history who presents with a left wrist dorsal ganglion cyst as a referral from [facility] ([facility]). Patient reports that the cyst has been there for several years but has been getting larger recently and causes her an aching dull irritation pain after she uses her left wrist to carry her children. She has 4 young children, including a toddler and an 8-month-old. She is currently breast-feeding. Patient may have jammed her hand playing sports growing up but does not remember any severe trauma to the hand or wrist. She does have a history of doing Cross[employer] and lifting weights, but she currently just does light/endurance weight lifting. No personal or family history of bleeding or clotting problems. She is not a smoker. 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 The wrist mass is mobile. Motor: Able to bend and extend all MP, PIP, and DIP joints. Sensory: Intact to light touch on the radial and ulnar borders. No numbness on the dorsal radial hand Vascular: Finger tips are warm and well perfused with <2 second capillary refill. Coding Level of Care Code Off vis,new,level 3 Diagnoses Ganglion cyst of dorsum of left wrist M67.432 Assessment and Plan (No Qualifiers) Assessment and Plan (1) Ganglion cyst of dorsum of left wrist: Status: Acute Plan: We discussed the differential diagnosis for the mass. Common masses in the hand include ganglion cyst of tendon sheath, giant cell tumor of tendon sheath, and lipoma. All these masses are benign. We also discussed that over 95% of the masses found in the hand and fingers are benign, and not cancerous. Treatment options for these masses include observation vs surgical excision. Alternatively, if the mass is a ganglion cyst of tendon sheath may potentially be treated with needle puncture if it is located in the midline over the flexor tendon. When the ganglion cyst is located off mid-line, overlying the course of digital nerve and artery, needle puncture will run the risk of nerve/artery injury.??? Discussed post-operative splinting (1 month with wrist splint) and lifting precautions. Discussed risks of surgery like SBRN damage/nerve pain, infection, SL ligament disruption, infection, bleeding, and risks of anesthesia. After discussion, the patient would like to proceed with mass excision under local anesthesia [with] sedation. Plan to do this summer when the patient is done breast feeding and does not need to lift children as much (parents can assist). CPT codes for insurance prior authorization are as follows: 41951, [id number] 09/10/24 1711 Date Balwinder Sanchez Signature: Date (if applicable) CC: Normal [facility] Orthopedic Visit Reporton Orthopedic Visit Report [facility] [address] [place] [address] [address] [place] [address] OFFICE VISIT Date of Service: 09/06/24 MR#: [id number] Acct: [id number] Name: HEIDY ORDOÑEZ Rep #: [id number] : 1990 Provider: JONELLE lara Age/Sex: 34/F [place] [facility] [place] Status: Signed Intake Vital Signs 12/26/23 03:19 09/05/24 14:09 09/06/24 11:19 Height 5 ft 1 in 5 ft 1 in 5 ft 1 in Weight: 123 lb BMI 23.2 Intake Visit Reasons: LEFT WRIST Chief Complaint: cyst on left wrist Is patient in pain?: Yes (left wrist) Pain scale (1-10): 2 Allergies No Known Allergies Allergy (Verified 09/06/24 11:19) PFSH Medical History Circumvallate placenta depression Anxiety Surgical History [place] teeth removed H/O LEEP Social History Smoking Status: Never smoker HPI LEFT WRIST Details: This documentation accurately reflects the service provided and the decisions made by me, Shirley Delacruz, MANAGER POST-C 09/06/24 1117. Part of today???s visit was documented by Kelly Rosario RN, acting as scribe. HEIDY ORDOÑEZ is a 34 year old F here today for evaluation of left wrist pain. She reports this has been ongoing for years but over the last few months it has become more painful. She reports rare intermittent numbness and tingling in her hand. 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 She has a difficult time hold her kids or working out because of it. She notices popping on her pinky finger now. Agree with above. Heidy is a pleasant 34-year-old here for initial evaluation of left wrist pain and cyst. Patient states cyst has been present for couple of years, however recently is becoming more aggravated with range of motion and tender with bumping it and repetitive use. She has 4 small children she cares for and routine care and carrying aggravates her symptoms. Denies any redness, discoloration. Has not attempted any home treatments.RH dominant. ROS Const All systems reviewed are unremarkable except as noted in H and other (A O x 3, no apparent distress. No recent illness.) ENT Denies dizziness Card Denies chest pain, Denies dyspnea, Denies edema and Reports other (No palpitations) Resp Denies cough, Denies dyspnea and Reports other (No recent URI) GI Reports system reviewed and no additional complaints, except as documented, Denies nausea and Denies vomiting Musc Reports as per HPI (L dorsal wrist, new/small near dorsal MCP joint little finger) Neuro No dizziness and Yes other Psych Reports system reviewed and no additional complaints, except as documented Ino/Lymph Denies easy bleeding and Denies easy bruising Ortho Exam Left Wrist/Hand WRIST: Skin is pink, warm, dry and intact. There is no discoloration present Positive visible cyst over ulnar aspect of carpal rows, approximately marble sized, slightly tender with touch and assessment. Mobile. There is a second BB sized cyst at the dorsal radial aspect of the fifth MCP joint. No pain with range of motion or palpation. ROM: Near full range of motion with flexion extension with symptom aggravation over the dorsal aspect of the region of the cyst Testing: Atif [negative]; Tinel's negative; Phalen's negative; snuffbox tenderness [negative] Full range of distal joints with no symptom aggravation Distal motor or sensory intact with brisk cap refill at 2 seconds Supplemental Info Independent review of wrist x-rays completed during today's visit. There is no acute fracture or misalignment noted. Await radiology report. Coding Level of Care Code Off vis,new,level 3 Diagnoses Ganglion cyst of dorsum of left wrist M67.432 Assessment and Plan Assessment and Plan (1) Ganglion cyst of dorsum of left wrist: Status: Acute Plan: We discussed multiple measures for symptomatic control. For conservative options we reviewed do- nothing, wrist brace to limit flexion and extension over the next couple of weeks and OTC NSAIDs, attempted aspiration and cortisone injection as well as surgical intervention to remove the ganglion cyst at the dorsal aspect of the wrist. We did discuss typically outpatient procedure under twilight type anesthesia and recovery period. We did discuss high incidence of recurrence with draining and injecting in 3-month window prior to pursuing surgical intervention should it not be successful. At this time, patient wishes to pursue surgical consult, referral to Dr. Richardson next available clinic. In the meantime, encourage patient to purchase a Velcro wrist brace to limit flexion extension motions with activity, may remove with rest and sleep, discussed OTC ibuprofen dosing. Patient in agreement wi (more content not included)... Normal [facility] Wrist min 3 Viewson 09-07-19 25 Wrist min 3 Views [facility] [address] [address] Wrist min 3 Views MR#: [id number] Acct: [id number] Name: HEIDY ORDOÑEZ Rep #: [id number] : 1990 F 34 From: Balwinder Mayen MD PCP: Care Physician,No Primary Status: DEP AMB Study: Wrist min 3 Views Date of Exam: 09/06/24 Exam# [id number] Ordering Dr: Shirley Delacruz EXAM: DX wrist minimum three views CLINICAL HISTORY: Left wrist pain, cyst COMPARISON: None available TECHNIQUE: Three views left wrist FINDINGS: No fracture or dislocation. The joint spaces appear within limits. No osseous lesion identified. Prominent appearance of the soft tissues of the dorsal aspect of the wrist without radiopaque foreign body or calcification, clinically correlate. RAD/Wrist min 3 Views IMPRESSION: Prominent appearance of the soft tissues of the dorsal aspect of the wrist without radiopaque foreign body or calcification, clinically correlate. No osseous abnormality identified. Reading Location: [facility] CC: JONELLE Delacruz; No Primary Care Physician Bookkeeping Clerk: Signed Normal [facility] HIGH RISK HUMAN PAPILLOMA ERIKA (HPV), PCR FOR DETECTION AND GENOTYPINGon 02-06-2024 HPV 16 Ag Ql (Unsp spec) Not detected Normal Not detected [facility] Comment on above: Order Comment: Speci men Type: FLUID SPECIMEN Ordering Facility: [facility] Address: [address] [place] [address] Performed By: #### L [id number] #### [facility] CLIA [id number] [address] [place] [address] [place] [facility] CLIA [id number] [address] [place] [address] [place] #### HPVHRT #### [facility] CLIA [id number] [address] [place] [address] [place] HPV 18 Ag Ql (Unsp spec) Not detected Normal Not detected [facility] Comment on above: Order Comment: Speci men Type: FLUID SPECIMEN Ordering Facility: [facility] Address: [address] [place] [address] Performed By: #### L [id number] #### [facility] CLIA [id number] [address] [place] [address] [place] [facility] CLIA [id number] [address] [place] [address] [place] #### HPVHRT #### [facility] CLIA [id number] [address] [place] [address] [place] HPV 31+33+35+39+45+51+52 +56+58+59+66+68 DNA MICHAEL+probe Ql (Cvx) Not detected Normal Not detected [facility] Comment on above: Order Comment: Speci men Type: FLUID SPECIMEN Ordering Facility: [facility] Address: [address] [place] [address] Result Comment: High Risk HPV Other Type includes HPV types 31, 33, 35, 39, 45, 51, 52, 56, 58, 59, 66 and 68. Performed By: #### L [id number] #### [facility] CLIA [id number] [place] [address] [place] [facility] CLIA [id number] [address] [place] [address] [place] #### HPVHRT #### [facility] CLIA [id number] [address] [place] [address] [place] PAP TESTon 02-06-2024 ADEQUACY Satisfactory for interpretation. Normal [facility] Comment on above: Order Comment: Speci men Type: FLUID SPECIMEN Ordering Facility: [facility] Address: [address] [place] [address] Performed By: #### L [id number] #### [facility] CLIA [id number] [address] [place] [address] [place] [facility] CLIA [id number] [address] [place] [address] [place] #### HPVHRT #### [facility] CLIA [id number] [address] [place] [address] [place] CASE REPORT Normal [facility] Comment on above: Order Comment: Speci men Type: FLUID SPECIMEN Ordering Facility: [facility] Address: [address] [place] [address] Result Comment: Gyne cologic Cytology Report Case: [id number] Authorizing Provider: Adina Rivera APRN.CNM Collected: 02/06/2024 03:25 PM Ordering Location: OB/Gynecology Received: 02/06/2024 04:27 PM First Screen: Adina Lugo, CT, ASCP Rescreen: Nereida Lin, CT, ASCP Specimen: Pap Test, ThinPrep, Cervix Performed By: #### L [id number] #### [facility] CLIA [id number] [address] [place] [address] [place] [facility] CLIA [id number] [address] [place] [address] [place] #### HPVHRT #### [facility] CLIA [id number] [address] [place] [address] [place] CLINICAL HISTORY, CYTOLOGY, AUTO REPAIR SHOP MANAGER Routine Exam Normal [facility] Comment on above: Order Comment: Speci men Type: FLUID SPECIMEN Ordering Facility: [facility] Address: [address] [place] [address] Result Comment: Post (Indicate Weeks) 6 weeks Performed By: #### L [id number] #### [facility] CLIA [id number] [address] [place] [address] [place] [facility] CLIA [id number] [address] [place] [address] [place] #### HPVHRT #### [facility] CLIA [id number] [address] [place] [id number] [place] [facility] Comment on above: Order Comment: Speci men Type: FLUID SPECIMEN Ordering Facility: [facility] Address: [address] [place] [address] Result Comment: Tech nical component, fire hydrant mechanic screening performed at [facility], [address] [place] [address] CLIA# [id number] Diagnostic interpretation performed at [facility], [address] [place] [address] CLIA# [id number] Residence Supervisor: Jose Ash M.D. Performed By: #### L [id number] #### [facility] CLIA [id number] [address] [place], [place] [address] [place] [facility] CLIA [id number] [address] [place] [address] [place] #### HPVHRT #### [facility] CLIA [id number] [address] [place], [place] [id number] [place] HPV REFLEX Yes HPV Normal [facility] Comment on above: Order Comment: Speci men Type: FLUID SPECIMEN Ordering Facility: [facility] Address: [address] [place], [place] [address] Performed By: #### L [id number] #### [facility] CLIA [id number] [address] [place], [place] [address] [place] [facility] CLIA [id number] [address] [place] [id number] [place] #### HPVHRT #### [facility] CLIA [id number] [address] [place], [place] [id number] [place] INTERPRETATION, CYTOLOGY, AUTO REPAIR SHOP MANAGER Normal [facility] Comment on above: Order Comment: Speci men Type: FLUID SPECIMEN Ordering Facility: [facility] Address: [address] [place], [place] [address] Result Comment: Nega tive for intraepithelial lesion or malignancy. Performed By: #### L [id number] #### [facility] CLIA [id number] [address] [place] [address] [place] [facility] CLIA [id number] [facility] [place] [address] [place] #### HPVHRT #### [facility] CLIA [id number] [address] [place] [address] [place] LMP 03/23/2023 Normal [facility] Comment on above: Order Comment: Speci men Type: FLUID SPECIMEN Ordering Facility: [facility] Address: [address] [place] [address] Performed By: #### L [id number] #### [facility] CLIA [id number] [address] [place] [address] [place] [facility] CLIA [id number] [address] [place] [address] [place] #### HPVHRT #### [facility] CLIA [id number] [address] [place] [address] [place] PAP DISCLAIMER COMMENT The Pap Smear is a screening test for cervical cancer. False negative results occur with all screening tests, emphasizing the need for rescreening at recommended intervals, and clinical correlation. Normal [facility] Comment on above: Order Comment: Speci men Type: FLUID SPECIMEN Ordering Facility: [facility] Address: [address] [place] [address] Performed By: #### L [id number] #### [facility] CLIA [id number] [address] [place] [address] [place] [facility] CLIA [id number] [address] [place] [address] [place] #### HPVHRT #### [facility] CLIA [id number] [address] [place] [address] [place] PAP INSPECTOR AND CLERK COMMENT This specimen has been analyzed by the ThinPrep Imaging System, an automated imaging and review system, which assists the laboratory in evaluating cells on ThinPrep Pap tests. Following automated imaging, selected ambriz from every slide are reviewed by a fire hydrant mechanic. Normal [facility] Comment on above: Order Comment: Speci men Type: FLUID SPECIMEN Ordering Facility: [facility] Address: [address] [place] [address] Performed By: #### L [id number] #### [facility] CLIA [id number] [place] [facility] CLIA [id number] [address] [place] [address] [place] #### HPVHRT #### [facility] CLIA [id number] [address] [place] [address] [place] CBC W/Diff, Automatedon 08-2 -2023 Absolute Lymph 1.63 X10 3/uL Normal 0.83-4.51 [facility] Comment on above: Order Comment: Comme nts: First day Performed By: #### L 100.0100 #### [facility] [address] [place], [address] Absolute Neut 8.4 X10 3/uL High 2.0-7.7 [facility] Comment on above: Order Comment: Comme nts: First day Performed By: #### L 100.0100 #### [facility] [address] [place], [address] Basophils/100 WBC (Bld) 0.3 % Normal 0-1 [facility] Comment on above: Order Comment: Comme nts: First day Performed By: #### L 100.0100 #### [facility] [address] [place], [address] Eosinophils/100 WBC (Bld) 0.5 % Normal 0-5 [facility] Comment on above: Order Comment: Comme nts: First day Performed By: #### L 100.0100 #### [facility] [address] [place], [address] Erythrocyte distribution width (RBC) [Ratio] 12.6 % Normal 11.6-14.6 [facility] Comment on above: Order Comment: Comme nts: First day Performed By: #### L 100.0100 #### [facility] [address] [place], [address] Hematocrit (Bld) [Volume fraction] 32.9 % Low 37-47 [facility] Comment on above: Order Comment: Comme nts: First day Performed By: #### L 100.0100 #### [facility] [address] [place], [address] Hemoglobin (Bld) [Mass/Vol] 11.5 g/dL Low 12.0-15.0 [facility] Comment on above: Order Comment: Comme nts: First day Performed By: #### L 100.0100 #### [facility] [address] [place], [address] IG% 0.600 Normal 0.0-0.9 [facility] Comment on above: Order Comment: Comme nts: First day Result Comment: IG% - Immature Granulocytes (promyelocytes, myelocytes and metamyelocytes) > 1% indicates that a LEFT SHIFT is Present. Performed By: #### L 100.0100 #### [facility] [address] [place], [address] Lymphocytes/100 WBC (Bld) 14.9 % Low 19-41 [facility] Comment on above: Order Comment: Comme nts: First day Performed By: #### L 100.0100 #### [facility] [address] [place], [address] MCH (RBC) [Entitic mass] 32.4 pg High 27.0-32.0 [facility] Comment on above: Order Comment: Comme nts: First day Performed By: #### L 100.0100 #### [facility] [address] [place], [address] MCHC (RBC) [Mass/Vol] 35.0 g/dL Normal 32-36 [facility] Comment on above: Order Comment: Comme nts: First day Performed By: #### L 100.0100 #### [facility] [address] [place], [address] MCV (RBC) [Entitic vol] 92.7 fL Normal 81-99 [facility] Comment on above: Order Comment: Comme nts: First day Performed By: #### L 100.0100 #### [facility] [address] [place], [address] Monocytes/100 WBC (Bld) 6.9 % Normal 0-10 [facility] Comment on above: Order Comment: Comme nts: First day Performed By: #### L 100.0100 #### [facility] [address] [place], [address] Neutrophils/100 WBC (Bld) 76.8 % High 47-70 [facility] Comment on above: Order Comment: Comme nts: First day Performed By: #### L 100.0100 #### [facility] [address] [place], [address] Nucleated RBC (Bld) [#/Vol] 0 10*3/uL Normal 0-5 [facility] Comment on above: Order Comment: Comme nts: First day Performed By: #### L 100.0100 #### [facility] [address] [place], [address] Platelet mean volume (Bld) [Entitic vol] 12.5 fL High 6.2-12.0 [facility] Comment on above: Order Comment: Comme nts: First day Performed By: #### L 100.0100 #### [facility] [address] [place], [address] Platelets (Bld) [#/Vol] 117 10*3/uL Low 150-450 [facility] Comment on above: Order Comment: Comme nts: First day Performed By: #### L 100.0100 #### [facility] [address] [place], [address] RBC (Bld) [#/Vol] 3.55 10*6/uL Low 4.2-5.4 [facility] Comment on above: Order Comment: Comme nts: First day Performed By: #### L 100.0100 #### [facility] [address] [place], [address] RDW SD 42.9 fl Normal 35.1-43.9 [facility] Comment on above: Order Comment: Comme nts: First day Performed By: #### L 100.0100 #### [facility] [address] [place], [address] WBC (Bld) [#/Vol] 10.9 10*3/uL Normal 4.4-11.0 [facility] Comment on above: Order Comment: Comme nts: First day Performed By: #### L 100.0100 #### [facility] [address] [place], [address] Discharge Instructionon 12-07 Discharge Instruction [facility] Medical Records Department [address] [place] [address] Instructions for Home/Discharge Instructions 12/27/23 0814 MR#: [id number] Acct: [id number] Name: HEIDY ORDOÑEZ Rep #: [id number] : 1990 33 From: Maddy Christianson MD PCP: Care Physician,No Primary Status:ADM IN Discharge Instructions Diet Discharge Diet: No restrictions Activity May resume sexual activity in: 6-8 weeks Dressing / Incision Call your doctor if you observe: Fever of 101 or Higher, Inability to urinate, Using more than 1 pad per hour and Uncontrolled pain Follow Up Care When: 1-2 weeks post and again at 6 weeks post . [phone] Test Results: Test results from this visit will be discussed in further detail at your follow-up appointment, if applicable. Discharge Plan Admission Admit Date/Time: 12/26/23 05:11 Attending Provider: Adina Rivera Primary Care Provider: Galdino Physician,No Primary Discharge Orders/Prescriptions Prescriptions: New acetaminophen 500 mg Tablet 1,000 mg PO Q6H PRN PRN (Reason: Pain 1-10 Or Fever) Qty: 0 0RF ibuprofen 600 mg Tablet 600 mg PO Q6H PRN PRN (Reason: Pain Score 1-10) Qty: 0 0RF Continued vit,[id number]-pbpn c 1 EACH tablet 1 tab PO DAILY Fish Oil 1 cap PO/SL DAILY iron 1 tab PO/SL DAILY Referrals / Follow Up: Care Physician,No Primary [Primary Care Provider] - Disposition Disposition (needs filled in before D/C Order can be placed): Home, Self Care 12/27/23 0816 Maddy Christianson MD CC: No Primary Care Physician Signed Normal [facility] ([facility] Rupture Of Membraneson 12-26-2023 ROM Positive Abnormal Negative [facility] Comment on above: Result Comment: Amni otic fluid present indicates rupture of Membranes. RESULTS CALLED TO MAX 12/26/23 0504 Norah Grayson. REPORT READ BACK BY SAME. Performed By: #### L 205.1000 #### [facility] [address] [place], [address] CBC W/Diff, Automatedon 12-07 PLT MORPH LARGE Normal [facility] Comment on above: Performed By: #### B 31835-3, L100.0100, BTS #### [facility] [address] [place], [address] H AND P Exam - OB/GYNon 08-2 H&P Exam - ASSISTANT ENGINEER [facility] Medical Records Department [address] [place] [address] H P Exam - ASSISTANT ENGINEER 12/26/23 0641 MR#: [id number] Acct: [id number] Name: HEIDY ORDOÑEZ Rep #: [id number] : 1990 33 From: Adina Rivera CNM PCP: Care Physician,No Primary Status:ADM IN Location: LC150-6 HPI - General General Date of Admission: 12/26/23 HPI Narrative HEIDY ORDOÑEZ, is a 33 F who presents at 39w5d in active labor. SROM for clear fluid while triage and contractions started. Maternal Data Information JAGDEEP Calculator Estimated Delivery Date Method Current WG Current Estimate 12/28/23 Manual 39w 5d PFSH PFSH Medical History (Updated 12/26/23 @ 07:29 by Adina Rivera CNM) Circumvallate placenta depression Anxiety Home Medications ???Medication ???Instructions ???Recorded ???Last Taken ???Type vitamin 1 tab PO DAILY 12/09/18 12/25/23 09:00 History no.76-iron,carbonyl 29 mg `1 tab iron-folic acid 1 mg tablet Fish Oil 1 cap PO/SL DAILY 01/22/22 12/25/23 09:00 History 1 cap iron 1 tab PO/SL DAILY Check with 01/22/22 02/02/22 08:00 History primary doctor Allergy/AdvReac Type Severity Reaction Status Date / Time No Known Allergies Allergy Verified 12/26/23 03:17 Surgical History (Updated 12/26/23 @ 05:36 by Opal Jeffries) [place] teeth removed H/O LEEP Social History Smoking Status: Never smoker History Elective abortions Hx Para 3 Spontaneous abortions Hx # Term Pregnancies Ectopic pregnancies Hx # Pregnancies Multiple births # of living children NST FHR Rate Baby A Baseline: 140, audible increases, no decreases IA ROS Constitutional Constitutional: Reports systems reviewed and no addt'l complaints, except as documented; Denies headache(s) Eyes Eyes: Denies acute decrease in peripheral vision, blurry vision or change in vision ENT HEENT: Reports systems reviewed and no addt'l complaints, except as documented Cardiovascular Cardiovascular: Denies chest pain or dizziness Respiratory/Chest Respiratory/Chest: Denies cough, dyspnea, dyspnea on exertion, shortness of breath at rest or shortness of breath with exertion Gastrointestinal Gastrointestinal: Denies diarrhea, nausea or vomiting Genitourinary Genitourinary: Denies abdominal discomfort Musculoskeletal Musculoskeletal: Denies limited range of motion Integumentary Integumentary: Reports systems reviewed and no addt'l complaints, except as documented Neurologic Neurologic: Reports systems reviewed and no addt'l complaints, except as documented Psychiatric Psychiatric: Reports systems reviewed and no addt'l complaints, except as documented Endocrine Endocrinology: Reports systems reviewed and no addt'l complaints, except as documented Hematologic/Lymphati c Hematologic/Lymphati c: Reports systems reviewed and no addt'l complaints, except as documented Allergic/Immunologic Allergic/Immunologic : Reports systems reviewed and no addt'l complaints, except as documented Vital Signs Vital Signs Vital Signs: 12/26/23 03:17 12/26/23 03:17 12/26/23 03:18 Pulse Rate 63 65 Blood Pressure 135/92 H BP Systolic 135 BP Diastolic 92 Pulse Ox 12/26/23 03:18 Pulse Rate Blood Pressure BP Systolic BP Diastolic Pulse Ox 100 Weight Weight: 143 lb 1.28 oz Body Mass Index (BMI) 27.0 Physical Exam Const alert and oriented x3 General Appearance: cooperative Orientation / Consciousness: awake, oriented to person, oriented to place and oriented to time Exam Limitations: no limitations HEENT normocephalic Head and Scalp: normal to inspection, normocephalic and atraumatic Face and Sinus: normal facial exam Eyes General Eye: normal appearance of both eyes Neck full ROM Chest Chest: symmetrical chest wall rise Resp normal respiratory effort and normal air movement Auscultation: clear to auscultation bilaterally Cardio regular rate, regular rhythm, S1 normal heart sound, S2 normal heart sound, no murmurs, no rub, no gallops and no clicks GI normal to inspection, nondistended, normoactive bowel sounds and non-tender appearance of the vagina normal Bladder / Kidney Exam: no CVA tenderness Back/Spine normal ROM Extremity normal to inspection and full ROM Skin no rashes or lesions noted Neuro oriented x3, CN's II-XII intact bilaterally and moves all extremities Sensorium / Orientation: awake, alert and oriented to person Motor Exam: clonus absent Deep Tendon Reflexes: Rt Patellar (L4): 2+ and Lt Patellar (L4): 2+ Labs Labs Labs: Blood Type O POSITIVE Antibody Screen NEGATIVE Hct 38.6 % (37-47) Hgb 13.6 (more content not included)... Normal [facility] L509.8000on 12-26-2023 Syphilis Abs Non-Reactive Normal [facility] Comment on above: Performed By: #### L 509.8000 #### [facility] [address] [facility] [place], [address] Operative Reporton 4 Operative Report [facility] Medical Records Department [address] [place] [address] Operative Report 12/26/23 1044 MR#: [id number] Acct: [id number] Name: HEIDY ORDOÑEZ Rep #: [id number] : 1990 33 From: Adina Rivera CNM PCP: Care Physician,No Primary Status:ADM IN Location: [place] [address] Assessment Plan (1) Vaginal delivery: Maternal Data Information JAGDEEP Calculator Estimated Delivery Date Method Current WG Current Estimate 12/28/23 Manual 39w 5d Vaginal Delivery Maternal Presentation Maternal Presentation: Active Labor and Spontaneous Rupture of Membranes Operative Information Date of Procedure: 12/26/23 Pre-Operative Diagnosis: Active labor at term, SROM Post-Operative Diagnosis: , waterbirth Surgery / Procedure Performed: Spontaneous Vaginal Delivery Type of Anesthesia: None Estimated Blood Loss: 300ml Time of Delivery: 10:13 Findings Description of Procedure: Progressed to complete with urge to push. Tub for pain management. of viable female over intact perineum, waterbirth. APGARS 7,9 respectively. head delivered with body immediately forthcoming. Placed on maternal abdomen, strong cry. Mouth and nares suctioned for secretions. Pitocin started for active 3rd stage management. Cord doubly clamped and cut by FOB after pulsations ceased, delayed cord clamping. Lifted out of tub and transferred back to bed without difficultly. Placenta delivered intact via melendez. 3 vessel cord intact. Perineum inspected and revealed intact. Fundus firm and hemostasis achieved. EBL 300ml. Mom and baby stable, planning to breastfeed. Family bonding well. notified of delivery. Presentation: Vertex and SIMON Amniotic Membrane Rupture Type: Spontaneous (Rupture of forebag at 8cm) Amniotic Fluid Description: Clear Placental Delivery Description: Spontaneous Placenta Disposition: [facility] Cord Entanglement: None Infant A Gender: Female (1 minute): 7 (5 minute): 9 Delayed Cord Clamping: Yes Post Vaginal Delivery Medications Given After Delivery: IV Pitocin Episiotomy Description: None Laceration: None Complication Complications: None 12/26/23 1053 Cosigner Signature (if applicable): CC: IDALIA Rivera; Dr. Michelle Ho, DO; No Primary Care Physician Signed [facility] Type AND Screenon 12-26-2023 ABO and Rh group Nom (Bld) Blood group O Rh(D) positive [facility] Comment on above: Order Comment: Labor Performed By: #### B [id number], L100.0100, BTS #### [facility] [address] [facility] [place], [address] URINE OB DIP B/Oon 4 Glucose Ql (U) Negative Neg mg/dL [facility] Interpretation and review of laboratory results Normal [facility] Protein.monoclonal (U) [Mass/Vol] Negative Neg mg/dL [facility] URINE OB DIP B/Oon 4 Glucose Ql (U) Negative Neg mg/dL [facility] Interpretation and review of laboratory results Normal [facility] Protein.monoclonal (U) [Mass/Vol] Negative Neg mg/dL [facility] CNPNon 11-30-2023 CNPN Telephone (OBGYWM) HEIDY ORDOÑEZ ([id number]) 1990 F Date Time Provider Department 11/30/23 HILDA NIXON During your visit today, we recorded the following information about you: Hilda Arreola RN 11/30/2023 12:28 PM Signed Patient has US today. Please file pending order. Thank you. Hilda Arreola RN Allergies As of Date: 11/30/2023 (No Known Allergies) Date Reviewed: 11/17/2023 Reviewed by: Dru Polanco MA - Fully Assessed Reason for Visit: Orders [681] Primary Visit Diagnosis:Placenta, abnormal, third trimester [O43.103] Order(s):OBSTETRIC ULTRASOUND WHI [[id number]] Order #: [id number]: 1 FUTURE Prescriptions as of 11/30/2023 - docosahexanoic acid/epa (FISH OIL ORAL) Take by mouth once daily. - PNV no.95/ferrous fum/folic ac ( ORAL) Take by mouth. 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 papillomavirus (HPV) D*08/16/2013 08/22/2013 JUDIE II (cervical intraepithelial neoplasia II) *08/22/2013 History of LEEP (loop electrosurgical excision *05/11/2018 Nausea/vomiting in [O21.9] 05/11/2018 11/26/2018 IUGR (intrauterine growth restriction) affectin*11/26/2018 01/21/2019 Short interval between pregnancies affecting pr*09/26/2019 02/14/2022 IUGR (intrauterine growth retardation) in prior*09/26/2019 02/14/2022 Positive GBS test [B95.1] 04/23/2020 01/21/2022 Personal history of anxiety disorder [Z86.59] 05/27/2021 Circumvallate placenta, second trimester [O43.1*08/10/2023 Supervision of other high risk pregnancies, thi*11/17/2023 Encounter Status:Closed by HILDA NIXON on 11/30/23 Normal [facility] Examination level ultrasound on 11-30-2023 [facility] Radiology Study observation (narrative) [facility] ROUTINE, GROUP B ST REP PCRon 11-30-2023 ROUTINE, GROUP B STREP PCR GROUP B STREP PCR: Negative for Group B Streptococcus by PCR. Normal [facility] Comment on above: Performed By: #### L [id number] #### [facility] CLIA [id number] [address] [place] [address] [place] [facility] CLIA [id number] [address] #### HPVHRT #### [facility] CLIA [id number] [address] [place] URINE OB DIP B/Oon Glucose Ql (U) Negative Neg mg/dL [facility] Interpretation and review of laboratory results Normal [facility] Protein.monoclonal (U) [Mass/Vol] Negative Neg mg/dL [facility] Examination level ultrasound on 11-06-2023 [facility] Radiology Study observation (narrative) 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 Hilda Graham RN Allergies As of Date: 10/20/2023 (No Known Allergies) Date Reviewed: 10/19/2023 Reviewed by: Cheri Mercedes APRN.CNM - Fully Assessed Reason for Visit: Network Systems Analyst - Other [3602] Cmt: PRAF Prescriptions as of 10/20/2023 - docosahexanoic acid/epa (FISH OIL ORAL) Take by mouth once daily. - PNV no.95/ferrous fum/folic ac ( ORAL) Take by mouth. Problem List As Of Date 10/20/2023 Noted Resolved Cervical high risk human papillomavirus (HPV) D*08/16/2013 08/22/2013 JUDIE II (cervical intraepithelial neoplasia II) *08/22/2013 History of LEEP (loop electrosurgical excision *05/11/2018 Nausea/vomiting in [O21.9] 05/11/2018 11/26/2018 IUGR (intrauterine growth restriction) affectin*11/26/2018 01/21/2019 Short interval between pregnancies affecting pr*09/26/2019 02/14/2022 IUGR (intrauterine growth retardation) in prior*09/26/2019 02/14/2022 Positive GBS test [B95.1] 04/23/2020 01/21/2022 Personal history of anxiety disorder [Z86.59] 05/27/2021 Circumvallate placenta, second trimester [O43.1*08/10/2023 Encounter Status:Closed by HILDA GRAHAM on 10/20/23 Normal [facility] CBC W Auto Differential pane l (Bld)on 10-05-2023 Basophils (Bld) [#/Vol] 10*3/uL Normal <0.11 [facility] Comment on above: Order Comment: Speci men Type: FLUID SPECIMEN Ordering Facility: [facility] Address: [address] [place] [address] Performed By: #### L [id number] #### [facility] CLIA [id number] [place] [address] [place] [facility] CLIA [id number] [address] [place] [address] [place] #### HPVHRT #### [facility] CLIA [id number] [address] [place] [address] [place] Basophils/100 WBC (Bld) 0.1 % Normal [facility] Comment on above: Order Comment: Speci men Type: FLUID SPECIMEN Ordering Facility: [facility] Address: [address] [place] [address] Performed By: #### L [id number] #### [facility] CLIA [id number] [address] [place] [address] [place] [facility] CLIA [id number] [address] [place] [address] [place] #### HPVHRT #### [facility] CLIA [id number] [address] [place] [address] [place] Differential cell count method Nom (Bld) Auto Normal [facility] Comment on above: Order Comment: Speci men Type: FLUID SPECIMEN [facility] Facility: [facility] Address: [address] [place] [address] Performed By: #### L [id number] #### [facility] CLIA [id number] [address] [place] [address] [place] [facility] CLIA [id number] [address] [place] [address] [place] #### HPVHRT #### [facility] CLIA [id number] [address] [place] [address] [place] Eosinophils (Bld) [#/Vol] 0.03 10*3/uL Normal <0.46 [facility] Comment on above: Order Comment: Speci men Type: FLUID SPECIMEN Ordering Facility: [facility] Address: [address] [place] [address] Performed By: #### L [id number] #### [facility] CLIA [id number] [address] [place] [address] [place] [facility] CLIA [id number] [address] [place] [address] [place] #### HPVHRT #### [facility] CLIA [id number] [address] [place] [address] [place] Eosinophils/100 WBC (Bld) 0.3 % Normal [facility] Comment on above: Order Comment: Speci men Type: FLUID SPECIMEN Ordering Facility: [facility] Address: [address] [place] [address] Performed By: #### L [id number] #### [facility] CLIA [id number] [address] [place] [address] [place] [facility] CLIA [id number] [address] [place] [address] [place] #### HPVHRT #### [facility] CLIA [id number] [address] [place] [address] [place] Erythrocyte distribution width (RBC) [Ratio] 12.4 % Normal 11.5-15.0 [facility] Comment on above: Order Comment: Speci men Type: FLUID SPECIMEN [facility] Facility: [facility] Address: [address] [place] [address] Performed By: #### L [id number] #### [facility] CLIA [id number] [address] [place] [address] [place] [facility] CLIA [id number] [address] [place] [address] [place] #### HPVHRT #### [facility] CLIA [id number] [address] [place] [address] [place] Hematocrit (Bld) [Volume fraction] 35.2 % Low 36.0-46.0 [facility] Comment on above: Order Comment: Speci men Type: FLUID SPECIMEN Ordering Facility: [facility] Address: [address] [place] [address] Performed By: #### L [id number] #### [facility] CLIA [id number] [address] [place] [address] [place] [facility] CLIA [id number] [address] [place] [address] [place] #### HPVHRT #### [facility] CLIA [id number] [address] [place] [address] [place] Hemoglobin (Bld) [Mass/Vol] 12.3 g/dL Normal 11.5-15.5 [facility] Comment on above: Order Comment: Speci men Type: FLUID SPECIMEN Ordering Facility: [facility] Address: [address] [place] [address] Performed By: #### L [id number] #### [facility] CLIA [id number] [address] [place] [address] [place] [facility] CLIA [id number] [address] [place] [address] [place] #### HPVHRT #### [facility] CLIA [id number] [address] [place] [address] [place] Immature granulocytes (Bld) [#/Vol] 0.04 10*3/uL Normal <0.10 [facility] Comment on above: Order Comment: Speci men Type: FLUID SPECIMEN Ordering Facility: [facility] Address: [address] [place] [address] Performed By: #### L [id number] #### [facility] CLIA [id number] [address] [place] [address] [place] [facility] CLIA [id number] [address] [place] [address] [place] #### HPVHRT #### [facility] CLIA [id number] [address] [place] [address] [place] Immature granulocytes/100 WBC (Bld) 0.4 % Normal [facility] Comment on above: Order Comment: Speci men Type: FLUID SPECIMEN Ordering Facility: [facility] Address: [address] [place] [address] Performed By: #### L [id number] #### [facility] CLIA [id number] [address] [place] [address] [place] [facility] CLIA [id number] [address] [place] [address] [place] #### HPVHRT #### [facility] CLIA [id number] [address] [place] [address] [place] Lymphocytes (Bld) [#/Vol] 1.57 10*3/uL Normal 1.00-4.00 [facility] Comment on above: Order Comment: Speci men Type: FLUID SPECIMEN Ordering Facility: [facility] Address: [address] [place] [address] Performed By: #### L [id number] #### [facility] CLIA [id number] [address] [place] [address] [place] [facility] CLIA [id number] [address] [place] [address] [place] #### HPVHRT #### [facility] CLIA [id number] [address] [place] [address] [place] Lymphocytes/100 WBC (Bld) 16.4 % Normal [facility] Comment on above: Order Comment: Speci men Type: FLUID SPECIMEN Ordering Facility: [facility] Address: [address] [place] [address] Performed By: #### L [id number] #### [facility] CLIA [id number] [address] [place] [address] [place] [facility] CLIA [id number] [address] [place] [address] [place] #### HPVHRT #### [facility] CLIA [id number] [address] [place] [address] [place] MCH (RBC) [Entitic mass] 32.2 pg Normal 26.0-34.0 [facility] Comment on above: Order Comment: Speci men Type: FLUID SPECIMEN Ordering Facility: [facility] Address: [facility] [place] [address] Performed By: #### L [id number] #### [facility] CLIA [id number] [address] [place] [id number] [place] [facility] CLIA [id number] [address] [place] [address] [place] #### HPVHRT #### [facility] CLIA [id number] [address] [place] [address] [place] MCHC (RBC) [Mass/Vol] 34.9 g/dL Normal 30.5-36.0 [facility] Comment on above: Order Comment: Speci men Type: FLUID SPECIMEN Ordering Facility: [facility] Address: [address] [place] [address] Performed By: #### L [id number] #### [facility] CLIA [id number] [address] [place] [address] [place] [facility] CLIA [id number] [address] [place] [address] [place] #### HPVHRT #### [facility] CLIA [id number] [address] [place] [address] [place] MCV (RBC) [Entitic vol] 92.1 fL Normal 80.0-100.0 [facility] Comment on above: Order Comment: Speci men Type: FLUID SPECIMEN Ordering Facility: [facility] Address: [address] [place] [address] Performed By: #### L [id number] #### [facility] CLIA [id number] [address] [place] [address] [place] [facility] CLIA [id number] [address] [place] [address] [place] #### HPVHRT #### [facility] CLIA [id number] [address] [place] [address] [place] Monocytes (Bld) [#/Vol] 0.55 10*3/uL Normal <0.87 [facility] Comment on above: Order Comment: Speci men Type: FLUID SPECIMEN Ordering Facility: [facility] Address: [address] [place] [address] Performed By: #### L [id number] #### [facility] CLIA [id number] [address] [place] [address] [place] [facility] CLIA [id number] [facility] [place] [address] [place] #### HPVHRT #### [facility] CLIA [id number] [address] [place] [address] [place] Monocytes/100 WBC (Bld) 5.7 % Normal [facility] Comment on above: Order Comment: Speci men Type: FLUID SPECIMEN Ordering Facility: [facility] Address: [address] [place] [address] Performed By: #### L [id number] #### [facility] CLIA [id number] [address] [place] [address] [place] [facility] CLIA [id number] [facility] [place] [address] [place] #### HPVHRT #### [facility] CLIA [id number] [address] [place] [address] [place] Neutrophils (Bld) [#/Vol] 7.37 10*3/uL Normal 1.45-7.50 [facility] Comment on above: Order Comment: Speci men Type: FLUID SPECIMEN Ordering Facility: [facility] Address: [address] [place], [place] [id number] Performed By: #### L [id number] #### [facility] CLIA [id number] [place] [address] [place] [facility] CLIA [id number] [address] [place] [address] [place] #### HPVHRT #### [facility] CLIA [id number] [address] [place] [address] [place] Neutrophils/100 WBC (Bld) 77.1 % Normal [facility] Comment on above: Order Comment: Speci men Type: FLUID SPECIMEN Ordering Facility: [facility] Address: [address] [place] [address] Performed By: #### L [id number] #### [facility] CLIA [id number] [address] [place] [address] [place] [facility] CLIA [id number] [address] [place] [address] [place] #### HPVHRT #### [facility] CLIA [id number] [address] [place] [address] [place] Nucleated RBC (Bld) [#/Vol] 10*3/uL Normal <0.01 [facility] Comment on above: Order Comment: Speci men Type: FLUID SPECIMEN Ordering Facility: [facility] Address: [address] [place] [address] Performed By: #### L [id number] #### [facility] CLIA [id number] [place] [address] [place] [facility] CLIA [id number] [address] [place] [address] [place] #### HPVHRT #### [facility] CLIA [id number] [address] [place] [address] [place] Nucleated RBC/100 WBC (Bld) [Ratio] 0.0 /100 WBC Normal [facility] Comment on above: Order Comment: Speci men Type: FLUID SPECIMEN Ordering Facility: [facility] Address: [address] [place] [address] Performed By: #### L [id number] #### [facility] CLIA [id number] [address] [place] [id number] [place] [facility] CLIA [id number] [address] [place] [address] [place] #### HPVHRT #### [facility] CLIA [id number] [facility] [place] [address] [place] Platelet mean volume (Bld) [Entitic vol] 10.9 fL Normal 9.0-12.7 [facility] Comment on above: Order Comment: Speci men Type: FLUID SPECIMEN Ordering Facility: [facility] Address: [address] [place] [address] Performed By: #### L [id number] #### [facility] CLIA [id number] [address] [place] [address] [place] [facility] CLIA [id number] [address] [place] [address] [place] #### HPVHRT #### [facility] CLIA [id number] [address] [place] [address] [place] Platelets (Bld) [#/Vol] 174 10*3/uL Normal 150-400 [facility] Comment on above: Order Comment: Speci men Type: FLUID SPECIMEN Ordering Facility: [facility] Address: [address] [place] [address] Performed By: #### L [id number] #### [facility] CLIA [id number] [address] [place] [address] [place] [facility] CLIA [id number] [address] [place] [address] [place] #### HPVHRT #### [facility] CLIA [id number] [address] [place] [address] [place] RBC (Bld) [#/Vol] 3.82 10*6/uL Low 3.90-5.20 [facility] Comment on above: Order Comment: Speci men Type: FLUID SPECIMEN Ordering Facility: [facility] Address: [address] [place] [address] Performed By: #### L [id number] #### [facility] CLIA [id number] [address] [place] [address] [place] [facility] CLIA [id number] [address] [place] [address] [place] #### HPVHRT #### [facility] CLIA [id number] [address] [place] [address] [place] WBC (Bld) [#/Vol] 9.57 10*3/uL Normal 3.70-11.00 [facility] Comment on above: Order Comment: Speci men Type: FLUID SPECIMEN Ordering Facility: [facility] Address: [address] [place] [address] Performed By: #### L [id number] #### [facility] CLIA [id number] [address] [place] [address] [place] [facility] CLIA [id number] [address] [place] [address] [place] #### HPVHRT #### [facility] CLIA [id number] [address] [place] [address] [place] GESTATIONAL GLUCOSE SCREEN, 1-HOUR, 50 GRAM, NON-FASTINGon 10-05-2023 Glucose [Mass/Vol] 107 mg/dL Normal 74-134 [facility] Comment on above: Order Comment: Speci men Type: FLUID SPECIMEN [facility] Facility: [facility] Address: [address] [place] [address] Result Comment: [facility] Congress of Obstetricians and Gynecologists (Galo/Nhi) guidelines state a gestational diabetes mellitus positive screen is made, in women not previously diagnosed with overt diabetes, when the 1 hr plasma glucose level is equal to or above 140 mg/dL. [facility] [employer] [facility] recommends a 135 mg/dL cutoff. Performed By: #### L [id number] #### [facility] CLIA [id number] [address] [place] [address] [place] [facility] CLIA [id number] [address] [place] [address] [place] #### HPVHRT #### [facility] CLIA [id number] [facility] [place] [address] [place] Reagin and Treponema pallidu m IgG and IgM [Interp]on 10-05-2023 T. pallidum IgG+IgM IA Ql (S) Non-Reactive Normal Nonreactive [facility] Comment on above: Order Comment: Speci men Type: FLUID SPECIMEN [facility] Facility: [facility] Address: [address] [place] [address] Performed By: #### L [id number] #### [facility] CLIA [id number] [address] [place] [address] [place] [facility] CLIA [id number] [address] [place] [address] [place] #### HPVHRT #### [facility] CLIA [id number] [address] [place] [address] [place] Reagin+T pallidum IgG+IgM Se rPl-Impon 10-05-2023 Reagin and Treponema pallidum IgG and IgM [Interp] Cannot exclude recent Treponemal infection if specimen collected within 7-10 days after appearance of suspect lesions or 2-3 weeks after an exposure. Clinical correlation is required. Normal [facility] Comment on above: Order Comment: Speci men Type: FLUID SPECIMEN [facility] Facility: 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 Hilda Graham RN Allergies As of Date: 09/08/2023 (No Known Allergies) Date Reviewed: 09/07/2023 Reviewed by: Dru Polanco MA - Fully Assessed Reason for Visit: Network Systems Analyst - Other [3602] Cmt: PRAF Prescriptions as of 09/08/2023 - docosahexanoic acid/epa (FISH OIL ORAL) Take by mouth once daily. - PNV no.95/ferrous fum/folic ac ( ORAL) Take by mouth. Problem List As Of Date 09/08/2023 Noted Resolved Cervical high risk human papillomavirus (HPV) D*08/16/2013 08/22/2013 JUDIE II (cervical intraepithelial neoplasia II) *08/22/2013 History of LEEP (loop electrosurgical excision *05/11/2018 Nausea/vomiting in [O21.9] 05/11/2018 11/26/2018 IUGR (intrauterine growth restriction) affectin*11/26/2018 01/21/2019 Short interval between pregnancies affecting pr*09/26/2019 02/14/2022 IUGR (intrauterine growth retardation) in prior*09/26/2019 02/14/2022 Positive GBS test [B95.1] 04/23/2020 01/21/2022 Personal history of anxiety disorder [Z86.59] 05/27/2021 Circumvallate placenta, second trimester [O43.1*08/10/2023 Encounter Status:Closed by HILDA GRAHAM on 09/08/23 Normal [facility] Examination level ultrasound on 08-10-2023 [facility] ALPHA FETOPRO MATERNALon AFP, MATERNAL 0.62 MoM Normal [facility] Comment on above: Order Comment: Speci men Type: FLUID SPECIMEN [facility] Facility: [facility] Address: [address] [place] [address] Result Comment: 24.0 2 ng/mL Performed By: #### L [id number] #### [facility] CLIA [id number] [place] [address] [place] [facility] CLIA [id number] [address] [place] [address] [place] #### HPVHRT #### [facility] CLIA [id number] [address] [place] [address] [place] DATE OF COLLECTION #1 07/13/23 Normal [facility] Comment on above: Order Comment: Speci men Type: FLUID SPECIMEN [facility] Facility: [facility] Address: [address] [place] [address] Performed By: #### L [id number] #### [facility] CLIA [id number] [address] [place] [address] [place] [facility] CLIA [id number] [address] [place] [address] [place] #### HPVHRT #### [facility] CLIA [id number] [address] [place] [address] [place] DATE RECEIVED 07/14/23 Normal [facility] Comment on above: Order Comment: Speci men Type: FLUID SPECIMEN [facility] Facility: [facility] Address: [address] [place] [address] Performed By: #### L [id number] #### [facility] CLIA [id number] [address] [place] [address] [place] [facility] CLIA [id number] [address] [place] [address] [place] #### HPVHRT #### [facility] CLIA [id number] [address] [place] [address] [place] JAGDEEP 12/28/23 Normal [facility] Comment on above: Order Comment: Speci men Type: FLUID SPECIMEN [facility]ing Facility: [facility] Address: [address] [place] [address] Performed By: #### L [id number] #### [facility] CLIA [id number] [address] [place] [address] [place] [facility] CLIA [id number] [address] [place] [address] [place] #### HPVHRT #### [facility] CLIA [id number] [address] [place] [address] [place] GESTATION AT DATE OF SAMPLE 16 weeks 0 days (by dates) Normal [facility] Comment on above: Order Comment: Speci men Type: FLUID SPECIMEN [facility] Facility: [facility] Address: [address] [place] [address] Performed By: #### L [id number] #### [facility] CLIA [id number] [address] [place] [address] [place] [facility] CLIA [id number] [address] [place] [address] [place] #### HPVHRT #### [facility] CLIA [id number] [address] [place], [place] [address] [place] INSULIN DEPENDENT DIABETES None Normal [facility] Comment on above: Order Comment: Speci men Type: FLUID SPECIMEN [facility] Facility: [facility] Address: [address] [place] [id number] Performed By: #### L [id number] #### [facility] CLIA [id number] [address] [place], [place] [address] [place] [facility] CLIA [id number] [address] [place] [address] [place] #### HPVHRT #### [facility] CLIA [id number] [facility] [place] [id number] [place] IVF No Normal [facility] Comment on above: Order Comment: Speci men Type: FLUID SPECIMEN [facility]ing Facility: [facility] Address: [address] [place] [address] Performed By: #### L [id number] #### [facility] CLIA [id number] [place] [address] [place] [facility] CLIA [id number] [address] [place] [address] [place] #### HPVHRT #### [facility] CLIA [id number] [address] [place] [address] [place] LMP 03/23/23 Normal [facility] Comment on above: Order Comment: Speci men Type: FLUID SPECIMEN [facility] Facility: [facility] Address: [address] [place] [address] Performed By: #### L [id number] #### [facility] CLIA [id number] [address] [place] [address] [place] [facility] CLIA [id number] [address] [place] [address] [place] #### HPVHRT #### [facility] CLIA [id number] [address] [place], [place] [address] [place] MATERNAL AFP COMMENT See comments below Normal [facility] Comment on above: Order Comment: Speci men Type: FLUID SPECIMEN Ordering Facility: [facility] Address: [address] [place], [place] [address] Result Comment: INTE RPRETATION Screening result : Screen negative Risk of NTD : 1 in 6,500 Comment : The interpretation is for NTD only A screen negative result does not exclude the possibility of a neural tube defect, because screening does not detect all affected pregnancies Performed By: #### L [id number] #### [facility] CLIA [id number] [address] [place] [address] [place] [facility] CLIA [id number] [address] [place] [address] [place] #### HPVHRT #### [facility] CLIA [id number] [address] [place] [address] [place] MATERNAL AGE AT JAGDEEP 33 years Normal [facility] Comment on above: Order Comment: Speci men Type: FLUID SPECIMEN [facility] Facility: [facility] Address: [address] [place] [address] Performed By: #### L [id number] #### [facility] CLIA [id number] [address] [place] [address] [place] [facility] CLIA [id number] [address] [place] [address] [place] #### HPVHRT #### [facility] CLIA [id number] [address] [place] [address] [place] PATIENT'S WEIGHT DAY OF COLLECTION 122 lb. Normal [facility] Comment on above: Order Comment: Speci men Type: FLUID SPECIMEN [facility] Facility: [facility] Address: [address] [place] [address] Performed By: #### L [id number] #### [facility] CLIA [id number] [address] [place] [address] [place] [facility] CLIA [id number] [address] [place] [address] [place] #### HPVHRT #### [facility] CLIA [id number] [address] [place] [address] [place] INTERP-MATERNAL AFP Negative Normal Screen Negative [facility] Comment on above: Order Comment: Speci men Type: FLUID SPECIMEN [facility] Facility: [facility] Address: [address] [place] [id number] Performed By: #### L [id number] #### [facility] CLIA [id number] [address] [place] [address] [place] [facility] CLIA [id number] [address] [place] [address] [place] #### HPVHRT #### [facility] CLIA [id number] [address] [place] [address] [place] PREVIOUS NTD None Normal [facility] Comment on above: Order Comment: Speci men Type: FLUID SPECIMEN [facility] Facility: [facility] Address: [address] [place] [id number] Performed By: #### L [id number] #### [facility] CLIA [id number] [place], [place] [address] [place] [facility] CLIA [id number] [address] [place], [place] [address] [place] #### HPVHRT #### [facility] CLIA [id number] [address] [place], [place] [address] [place] RISK OF NTD ;1:6500 Normal [facility] Comment on above: Order Comment: Speci men Type: FLUID SPECIMEN Ordering Facility: [facility] Address: [address] [place] [id number] Performed By: #### L [id number] #### [facility] CLIA [id number] [address] [place] [address] [place] [facility] CLIA [id number] [address] [place] [address] [place] #### HPVHRT #### [facility] CLIA [id number] [address] [place] [address] [place] SAMPLE #1 [id number] Normal [facility] Comment on above: Order Comment: Speci men Type: FLUID SPECIMEN [facility]ing Facility: [facility] Address: [address] [place] [address] Performed By: #### L [id number] #### [facility] CLIA [id number] [address] [place] [address] [place] [facility] CLIA [id number] [address] [place] [address] [place] #### HPVHRT #### [facility] CLIA [id number] [address] [place] [address] [place] STAFF REVIEW (MATERNAL SCREENS) Reviewed by Tariq Ruby MD, Ph.D ([id number]) Normal [facility] Comment on above: Order Comment: Speci men Type: FLUID SPECIMEN [facility] Facility: [facility] Address: [address] [place] [address] Performed By: #### L [id number] #### [facility] CLIA [id number] [address] [place] [address] [place] [facility] CLIA [id number] [address] [place] [address] [place] #### HPVHRT #### [facility] CLIA [id number] [address] [place] [address] [place] CBC panel Auto (Bld)on 06-15 Erythrocyte distribution width (RBC) [Ratio] 12.5 % 11.5 - 15.0 % [facility] Hematocrit (Bld) [Volume fraction] 34.4 % Low 36.0 - 46.0 % [facility] Hemoglobin (Bld) [Mass/Vol] 12.2 g/dL 11.5 - 15.5 g/dL [facility] MCH (RBC) [Entitic mass] 30.8 pg 26.0 - 34.[address] [facility] MCHC (RBC) [Mass/Vol] 35.5 g/dL 30.5 - 36.0 g/dL [facility] MCV (RBC) [Entitic vol] 86.9 fL 80.0 - 100.[address] [facility] Nucleated RBC (Bld) [#/Vol] <0.01 k/uL [facility] Platelet mean volume (Bld) [Entitic vol] 11.3 fL 9.0 - 12.[address] [facility] Platelets (Bld) [#/Vol] 229 10*3/uL 150 - 400 k/uL [facility] RBC (Bld) [#/Vol] 3.96 10*6/uL 3.90 - 5.20 m/uL [facility] WBC (Bld) [#/Vol] 8.94 10*3/uL 3.70 - 11.00 k/u L [facility] Erythrocyte distribution width (RBC) [Ratio] 12.5 % Normal 11.5-15.0 [facility] Comment on above: Order Comment: Speci men Type: BLOOD SPECIMEN Ordering Facility: [facility] Address: [address] [place] [address] Performed By: #### 5 8410-2 #### [facility] [id number] [address] [place] [address] [place] Hematocrit (Bld) [Volume fraction] 34.4 % Low 36.0-46.0 [facility] Comment on above: Order Comment: Speci men Type: BLOOD SPECIMEN Ordering Facility: [facility] Address: [address] [place] [address] Performed By: #### 5 8410-2 #### [facility] [id number] [address] [place] [address] [place] Hemoglobin (Bld) [Mass/Vol] 12.2 g/dL Normal 11.5-15.5 [facility] Comment on above: Order Comment: Speci men Type: BLOOD SPECIMEN [facility]ing Facility: [facility] Address: [address] [place] [address] Performed By: #### 5 8410-2 #### [facility] CLIA [id number] [address] [place] [address] MCH (RBC) [Entitic mass] 30.8 pg Normal 26.0-34.0 [facility] Comment on above: Order Comment: Speci men Type: BLOOD SPECIMEN [facility] Facility: [facility] Address: [address] [place] [address] Performed By: #### 5 8410-2 #### [facility] CLIA [id number] [address] [place] [address] [place] MCHC (RBC) [Mass/Vol] 35.5 g/dL Normal 30.5-36.0 [facility] Comment on above: Order Comment: Speci men Type: BLOOD SPECIMEN [facility] Facility: [facility] Address: [address] [place] [address] Performed By: #### 5 8410-2 #### [facility] CLIA [id number] [address] [place] [address] [place] MCV (RBC) [Entitic vol] 86.9 fL Normal 80.0-100.0 [facility] Comment on above: Order Comment: Speci men Type: BLOOD SPECIMEN [facility] Facility: [facility] Address: [address] [place] [address] Performed By: #### 5 8410-2 #### [facility] CLIA [id number] [address] [place] [address] [place] Nucleated RBC (Bld) [#/Vol] 10*3/uL Normal <0.01 [facility] Comment on above: Order Comment: Speci men Type: BLOOD SPECIMEN [facility] Facility: [facility] Address: [address] [place] [address] Performed By: #### 5 8410-2 #### [facility] CLIA [id number] [address] [place] [address] [place] Platelet mean volume (Bld) [Entitic vol] 11.3 fL Normal 9.0-12.7 [facility] Comment on above: Order Comment: Speci men Type: BLOOD SPECIMEN [facility] Facility: [facility] Address: [address] [place] [address] Performed By: #### 5 8410-2 #### [facility] CLIA [id number] [address] [place] [address] [place] Platelets (Bld) [#/Vol] 229 10*3/uL Normal 150-400 [facility] Comment on above: Order Comment: Speci men Type: BLOOD SPECIMEN [facility] Facility: [facility] Address: [address] [place] [address] Performed By: #### 5 8410-2 #### [facility] CLIA [id number] [address] [place] [address] [place] RBC (Bld) [#/Vol] 3.96 10*6/uL Normal 3.90-5.20 [facility] Comment on above: Order Comment: Speci men Type: BLOOD SPECIMEN [facility] Facility: [facility] Address: [address] [place] [address] Performed By: #### 5 8410-2 #### [facility] CLIA [id number] [address] [place] [address] [place] WBC (Bld) [#/Vol] 8.94 10*3/uL Normal 3.70-11.00 [facility] Comment on above: Order Comment: Speci men Type: BLOOD SPECIMEN [facility] Facility: [facility] Address: [address] [place] [address] Performed By: #### 5 8410-2 #### [facility] CLIA [id number] [address] [place], [place] [address] [place] HBV surface Ag Ser Qlon 02 HBV surface Ag Ql (S) Negative Normal Negative [facility] Comment on above: Order Comment: Speci men Type: FLUID SPECIMEN [facility] Facility: [facility] Address: [address] [place] [address] Performed By: #### L [id number] #### [facility] CLIA [id number] [address] [place] [address] [place] [facility] CLIA [id number] [address] [place] [address] [place] #### HPVHRT #### [facility] CLIA [id number] [address] [place] [address] [place] HCV Ab Ser Qlon 06-15-2023 HCV Ab Ql (S) Negative Normal Negative [facility] Comment on above: Order Comment: Speci men Type: FLUID SPECIMEN [facility] Facility: [facility] Address: [address] [place] [address] Result Comment: The result suggests no evidence of active infection with Hepatitis C virus. Should recent infection be suspected, repeat testing may be considered 4-6 weeks after this draw. Performed By: #### L [id number] #### [facility] CLIA [id number] [address] [place] [address] [place] [facility] CLIA [id number] [address] [place] [address] [place] #### HPVHRT #### [facility] CLIA [id number] [address] [place] [address] [place] HIV 1+2 Ab IA Qlon 4 HIV 1 and 2 Ab IA.rapid Nom (S/P/Bld) Normal [facility] Comment on above: Order Comment: Speci men Type: FLUID SPECIMEN [facility] Facility: [facility] Address: [address] [place] [address] Result Comment: Test not indicated. Performed By: #### L [id number] #### [facility] CLIA [id number] [address] [place] [address] [place] [facility] CLIA [id number] [address] [place] [address] [place] #### HPVHRT #### [facility] CLIA [id number] [address] [place] [address] [place] HIV 1+2 Ab+HIV1 p24 Ag IA Ql Non-Reactive Normal Nonreactive [facility] Comment on above: Order Comment: Speci men Type: FLUID SPECIMEN [facility] Facility: [facility] Address: [address] [place] [address] Performed By: #### L [id number] #### [facility] CLIA [id number] [place] [address] [place] [facility] CLIA [id number] [address] [place] [address] [place] #### HPVHRT #### [facility] CLIA [id number] [address] [place] [address] [place] HIV immunoassay testing algorithm interpretation (S/P/Bld) [Interp] Normal [facility] Comment on above: Order Comment: Speci men Type: FLUID SPECIMEN [facility] Facility: [facility] Address: [address] [place] [address] Result Comment: No e vidence of HIV-1 or HIV-2 infection. Should recent infection be suspected, repeat testing may be considered 2-3 weeks after this draw. [place] Rev. Code 3701.243(E): This information has been disclosed to you from confidential records protected from disclosure by state law. ???You shall make no further disclosure of this information without the specific, written, and informed release of the individual to whom it pertains or as otherwise permitted by state law. A general authorization for the release of medical or other information is not sufficient for the purpose of the release of HIV test results or diagnoses. Performed By: #### L [id number] #### [facility] CLIA [id number] [address] [place] [id number] [place] [facility] CLIA [id number] [address] [place] [address] [place] #### HPVHRT #### [facility] CLIA [id number] [address] [place] [address] [place] [id number] PLUSon 06-15-2023 Cell-free DNA./Cell-free DNA.total Dosage of chromosome-specific cfDNA (cfDNA) [Molar fraction] 8% Normal [facility] Comment on above: Order Comment: Speci men Type: FLUID SPECIMEN [facility]ing Facility: [facility] Address: [address] [place] [address] Performed By: #### L [id number] #### [facility] [place] [id number] [address] [place] [address] [place] [facility] CLIA [id number] [address] [place] [address] [place] #### HPVHRT #### [facility] CLIA [id number] [address] [place] [address] [place] Chr 13+18+21+X+Y aneuploidy Dosage of chromosome-specific cfDNA Ql (cfDNA) Negative Normal [facility] Comment on above: Order Comment: Speci men Type: FLUID SPECIMEN [facility] Facility: [facility] Address: [address] [place] [address] Performed By: #### L [id number] #### [facility] CLIA [id number] [address] [place] [address] [place] [facility] CLIA [id number] [address] [place] [address] [place] #### HPVHRT #### [facility] CLIA [id number] [address] [place] [address] [place] Chr 21 trisomy Dosage of chromosome-specific cfDNA Ql (cfDNA) Negative Normal [facility] Comment on above: Order Comment: Speci men Type: FLUID SPECIMEN [facility] Facility: [facility] Address: [address] [place] [address] Performed By: #### L [id number] #### [facility] CLIA [id number] [address] [place] [address] [place] [facility] CLIA [id number] [address] [place] [address] [place] #### HPVHRT #### [facility] CLIA [id number] [address] [place] [address] [place] Chr X and Y aneuploidy risk Sequencing Ql (cfDNA) [Interp] Not detected Normal [facility] Comment on above: Order Comment: Speci men Type: FLUID SPECIMEN [facility] Facility: [facility] Address: [address] [place] [address] Result Comment: Not Detected Not Detected Performed By: #### L [id number] #### [facility] CLIA [id number] [address] [place] [address] [place] [facility] CLIA [id number] [address] [place] [address] [place] #### HPVHRT #### [facility] CLIA [id number] [address] [place] [address] [place] Citation Tiburcio (Reference lab test) Comment Normal [facility] Comment on above: Order Comment: Speci men Type: FLUID SPECIMEN [facility] Facility: [facility] Address: [address] [place] [address] Result Comment: 1. P marino DENIS, et al. Laura Med. 2012;14(3):296-305. 2. Brook LEONARD et al. Prenat Diag. 2013;33(6):591-597. 3. Power C, et al. Clin Chem. 2015 Apr;61(4):608-616. 4. Mike DENIS et al. Laura Med. 2011;13(11):913-920. 5. ACOG/[facility] Practice Bulletin No. 226, Feb 2020. Performed By: #### L [id number] #### [facility] CLIA [id number] [address] [place] [id number] [place] [facility] CLIA [id number] [address] [place] [address] [place] #### HPVHRT #### [facility] CLIA [id number] [address] [place] [address] [place] Gestational age Estimated from conception date Partida Normal [facility] Comment on above: Order Comment: Speci men Type: FLUID SPECIMEN [facility] Facility: [facility] Address: [address] [place] [address] Performed By: #### L [id number] #### [facility] CLIA [id number] [address] [place] [address] [place] [facility] CLIA [id number] [address] [place] [address] [place] #### HPVHRT #### [facility] CLIA [id number] [address] [place] [address] [place] GESTATIONALAGE AGE > OR = 9W Yes Normal [facility] Comment on above: Order Comment: Speci men Type: FLUID SPECIMEN [facility]ing Facility: [facility] Address: [address] [place] [address] Performed By: #### L [id number] #### [facility] CLIA [id number] [address] [place] [id number] [place] [facility] CLIA [id number] [address] [place] [address] [place] #### HPVHRT #### [facility] CLIA [id number] [facility] [place] [address] [place] Laboratory comment Tiburcio (Report) Comment Normal [facility] Comment on above: Order Comment: Speci men Type: FLUID SPECIMEN [facility]ing Facility: [facility] Address: [address] [place] [address] Result Comment: The MaterniT(R) 21 PLUS laboratory-developed test (LDT) analyzes circulating cell-free DNA from a maternal blood sample. This test is used for screening purposes and not diagnostic. Clinical correlation is recommended. Validation data on twin pregnancies is limited and the ability of this test to detect aneuploidy in higher multiple gestations has not yet been validated. Performed By: #### L [id number] #### [facility] CLIA [id number] [address] [place] [address] [place] [facility] CLIA [id number] [address] [place] [address] [place] #### HPVHRT #### [facility] CLIA [id number] [address] [place] [address] [place] curriculum and assessment director name Nom (Provider) Comment Normal [facility] Comment on above: Order Comment: Speci men Type: FLUID SPECIMEN [facility]ing Facility: [facility] Address: [address] [place] [address] Result Comment: This specimen showed an expected representation of chromosome 21, 18 and 13 material. Clinical correlation is suggested. Comment Boaz To MD, PhD, Director, [employer] Performed By: #### L [id number] #### [facility] CLIA [id number] [address] [place] [address] [place] [facility] CLIA [id number] [address] [place] [address] [place] #### HPVHRT #### [facility] CLIA [id number] [address] [place] [address] [place] LIMITATIONS OF THE TEST Comment Normal [facility] Comment on above: Order Comment: Speci men Type: FLUID SPECIMEN [facility] Facility: [facility] Address: [address] [place] [address] Result Comment: Whil e the results of these tests are highly reliable, discordant results, including inaccurate sex prediction, may occur due to placental, maternal, or mosaicism or neoplasm; vanishing twin; prior maternal organ transplant; or other causes. These tests are screening tests and not diagnostic; they do not replace the accuracy and precision of diagnosis with CVS or amniocentesis. A patient with a positive test result should be referred for genetic counseling and offered invasive diagnosis for confirmation of test results.[5] The results of this testing, including the benefits and limitations, should be discussed with a qualified healthcare provider. management decisions, including termination of the , should not be based on the results of these tests alone. The healthcare provider is responsible for the use of this information in the management of their patient. Sex chromosomal aneuploidies are not reportable for known multiple gestations. A negative result does not ensure an unaffected nor does it exclude the possibility of other chromosomal abnormalities or defects which are not a part of these tests. An uninformative result may be reported, the causes of which may include, but are not limited to, insufficient sequencing coverage, noise or artifacts in the region, amplification or sequencing bias, or insufficient fraction. These tests are not intended to identify pregnancies at risk for neural tube defects or ventral wall defects. Testing for whole chromosome abnormalities (including sex chromosomes) and for subchromosomal abnormalities could lead to the potential discovery of both and maternal genomic abnormalities that could have major, minor, or no, clinical significance. Evaluating the significance of a positive or a non-reportable result may involve both invasive testing and additional studies on the mother. Such investigations may lead to a diagnosis of maternal chromosomal or subchromosomal abnormalities, which on occasion may be associated with benign or malignant maternal neoplasms. These tests may not accurately identify triploidy, balanced rearrangements, or the precise location of subchromosomal duplications or deletions; these may be detected by diagnosis with CVS or amniocentesis. The ability to report results may be impacted by maternal BMI, maternal weight, maternal systemic lupus erythematosus (SLE) and/or by certain pharmaceutical agents such as low molecular weight heparin (for example: Lovenox(R), Xaparin(R), Clexane(R) and Fragmin(R)). Performed By: #### L [id number] #### [facility] [id number] [address] [place] [id number] [place] [facility] CLIA [id number] [address] [place] [address] [place] #### HPVHRT #### [facility] CLIA [id number] [address] [place] [id number] [place] Monosomy X risk Dosage of chromosome-specific cfDNA Ql (Plasma cell-free+WBC DNA) [Interp] Not detected Normal [facility] Comment on above: Order Comment: Speci men Type: FLUID SPECIMEN [facility] Facility: [facility] Address: [address] [place] [address] Performed By: #### L [id number] #### [facility] CLIA [id number] [place] [address] [place] [facility] CLIA [id number] [address] [place] [address] [place] #### HPVHRT #### [facility] CLIA [id number] [address] [place] [address] [place] NEGATIVE PREDICTIVE VALUE Note Normal [facility] Comment on above: Order Comment: Speci men Type: FLUID SPECIMEN [facility] Facility: [facility] Address: [address] [place] [address] Result Comment: The Negative Predictive Value (NPV) for trisomy 21, 18, and 13 is greater than 99%. The NPV for SCA and ESS cannot be calculated as SCA and ESS are only reported when an abnormality is detected. Performed By: #### L [id number] #### [facility] CLIA [id number] [address] [place], [place] [id number] [place] [facility] CLIA [id number] [address] [place] [address] [place] #### HPVHRT #### [facility] CLIA [id number] [address] [place] [address] [place] NOTE Comment Normal [facility] Comment on above: Order Comment: Speci men Type: FLUID SPECIMEN [facility]ing Facility: [facility] Address: [address] [place] [address] Result Comment: See Notes [employer] is a subsidiary of [employer], using the brand [employer]. This test was developed and its performance characteristics determined by [employer]. It has not been cleared or approved by the Food and Drug Administration. This laboratory is certified under the Clinical Laboratory Improvement Amendments (CLIA) as qualified to perform high complexity clinical laboratory testing and accredited by the [employer] (CAP). If there is future clinical need for adding MaterniT GENOME testing, this specimen will be available until term. [facility] samples will not be retained beyond 60 days. [facility] patients will have to send a new sample for re-sequencing ([facility] Test Code: [id number]). Performed By: #### L [id number] #### [facility] CLIA [id number] [place] [address] LAB CLIA [id number] [address] [place] [address] #### HPVHRT #### [facility] CLIA [id number] [address] [place] [address] PERFORMANCE CHARACTERISTICS Note Normal [facility] Comment on above: Order Comment: Speci men Type: FLUID SPECIMEN [facility] Facility: [facility] Address: [address] [place] [address] Result Comment: ! Sex ! Accuracy: 99.4% ! ! ! ! Region (associated syndrome) ! Est. Sens# ! Est. Spec ! ! ! ! Trisomy 21 (Down Syndrome) ! 99.1% ! 99.9% ! ! ! ! Trisomy 18 (Toney Syndrome) ! >99.9% ! 99.6% ! ! ! ! Trisomy 13 (Patau Syndrome) ! 91.7% ! 99.7% ! ! ! ! Sex Chromosome Aneuploidies## ! 96.2% ! 99.7% ! ! ! * As reported in ISCA database nstd37 [https://www.ncbi.nlm.nih.gov/dbvar/studies/nstd37/ ] # Estimated Sensitivity. Sensitivity estimated across the observed size distribution of each syndrome [per ISCA database nstd37] and across the range of fractions observed in routine clinical NIPT. Actual sensitivity can also be influenced by other factors such as the size of the event, total sequence counts, amplification bias, or sequence bias. ## Partida gestation only. Performed By: #### L [id number] #### [facility] [id number] [address] [place] [address] [place] [facility] CLIA [id number] [address] [place] [address] [place] #### HPVHRT #### [facility] CLIA [id number] [address] [place] [address] [place] POSITIVE PREDICTIVE VALUE N/A Normal [facility] Comment on above: Order Comment: Speci men Type: FLUID SPECIMEN [facility] Facility: [facility] Address: [address] [place] [address] Performed By: #### L [id number] #### [facility] CLIA [id number] [address] [place] [address] LAB CLIA [id number] [address] [place] [address] [place] #### HPVHRT #### [facility] CLIA [id number] [address] [place] [address] [place] Reference Lab Test Method Comment Normal [facility] Comment on above: Order Comment: Speci men Type: FLUID SPECIMEN [facility]ing Facility: [facility] Address: [address] [place] [address] Result Comment: See Notes Circulating cell-free DNA was purified from the plasma component of maternal blood. The extracted DNA was then converted into a genomic DNA library for aneuploidy analysis of chromosomes 21, 18, and 13 via next generation sequencing.[1] Optional findings based on the test order include sex chromosome aneuploidy (SCA)[2], and enhanced sequencing series (ESS)[3], which will only be reported on as an additional finding when an abnormality is detected. SCA testing includes information on X and Y representation, while ESS testing includes deletions in selected regions (22q, 15q, 11q, 8q, 5p, 4p, 1p) and trisomy of chromosomes 16 and 22. Performed By: #### L [id number] #### [facility] CLIA [id number] [address] [place] [address] [place] [facility] CLIA [id number] [address] [place] [address] [place] #### HPVHRT #### [facility] CLIA [id number] [address] [place] [address] [place] Sex Dosage of chromosome-specific cfDNA Nom (cfDNA) Comment Normal [facility] Comment on above: Order Comment: Speci men Type: FLUID SPECIMEN [facility] Facility: [facility] Address: [address] [place] [address] Result Comment: Cons istent with Female Performed By: #### L [id number] #### [facility] CLIA [id number] [address] [place] [address] [place] [facility] CLIA [id number] [address] [place] [address] [place] #### HPVHRT #### [facility] CLIA [id number] [address] [place] [address] [place] Test performance information Tiburcio (Unsp spec) Comment Normal [facility] Comment on above: Order Comment: Speci men Type: FLUID SPECIMEN [facility]ing Facility: [facility] Address: [address] [place] [address] Result Comment: The performance characteristics of the MaterniT(R) 21 PLUS laboratory-developed test (LDT) have been determined in a clinical validation study with women at increased risk for chromosomal aneuploidy.[1-4] Performed By: #### L [id number] #### [facility] CLIA [id number] [address] [place] [address] [place] [facility] CLIA [id number] [address] [place] [address] [place] #### HPVHRT #### [facility] CLIA [id number] [address] [place] [address] [place] Trisomy 13 risk Dosage of chromosome-specific cfDNA Ql (cfDNA) [Interp] Negative Normal [facility] Comment on above: Order Comment: Speci men Type: FLUID SPECIMEN [facility] Facility: [facility] Address: [address] [place] [address] Performed By: #### L [id number] #### [facility] CLIA [id number] [place] [address] [place] [facility] CLIA [id number] [address] [place] [address] [place] #### HPVHRT #### [facility] CLIA [id number] [address] [place] [address] [place] Trisomy 18 risk Dosage of chromosome-specific cfDNA Ql (Plasma cell-free+WBC DNA) [Interp] Negative Normal [facility] Comment on above: Order Comment: Speci men Type: FLUID SPECIMEN [facility] Facility: [facility] Address: [address] [place] [address] Performed By: #### L [id number] #### [facility] CLIA [id number] [address] [place] [address] [place] [facility] CLIA [id number] [address] [place] [address] [place] #### HPVHRT #### [facility] CLIA [id number] [address] [place] [address] [place] RUBELLA IGG ABon 06-15-2023 RUBELLA IGG AB, QUAL Positive Normal Positive [facility] Comment on above: Order Comment: Speci men Type: FLUID SPECIMEN [facility] Facility: [facility] Address: [address] [place] [address] Result Comment: The result suggests recent or past exposure to Rubella virus or history of Rubella vaccination. Positive result may also be seen due to presence of passively-transferred antibodies. Please correlate with patient's history. Performed By: #### L [id number] #### [facility] CLIA [id number] [address] [place] [address] [place] [facility] CLIA [id number] [address] [place] [address] [place] #### HPVHRT #### [facility] CLIA [id number] [address] [place] [address] [place] Reagin and Treponema pallidu m IgG and IgM [Interp]on 06-15-2023 T. pallidum IgG+IgM IA Ql (S) Non-Reactive Normal Nonreactive [facility] Comment on above: Order Comment: Speci men Type: FLUID SPECIMEN [facility] Facility: [facility] Address: [address] [place] [address] Performed By: #### L [id number] #### [facility] CLIA [id number] [address] [place] [address] [place] [facility] CLIA [id number] [address] [place] [address] [place] #### HPVHRT #### [facility] CLIA [id number] [address] [place] [address] [place] Reagin+T pallidum IgG+IgM Se rPl-Impon 06-15-2023 Reagin and Treponema pallidum IgG and IgM [Interp] Cannot exclude recent Treponemal infection if specimen collected within 7-10 days after appearance of suspect lesions or 2-3 weeks after an exposure. Clinical correlation is required. Normal [facility] Comment on above: Order Comment: Speci men Type: FLUID SPECIMEN [facility] Facility: [facility] Address: [address] [place] [address] Performed By: #### L [id number] #### [facility] CLIA [id number] [address] [place] [address] [place] [facility] CLIA [id number] [address] [place] [address] [place] #### HPVHRT #### [facility] CLIA [id number] [address] [place] [address] [place] TYPE + SCREEN PRENATALon ABO group Nom (Bld) O [facility] Blood group antibody screen Ql Negative [facility] HIstorical Ab Scr Status Negative [facility] Rh Nom (Bld) Positive [facility] Type and Screen Expiration 06/18/2023 23:59 [facility] ABO O Normal [facility] Comment on above: Order Comment: Speci men Type: BLOOD SPECIMEN [facility] Facility: [facility] Address: [address] [place] [address] Performed By: #### T SPN #### [facility] CLIA [id number] [address] [place] [address] [place] HISTORICAL AB SCR STATUS Negative Normal [facility] Comment on above: Order Comment: Speci men Type: BLOOD SPECIMEN [facility] Facility: [facility] Address: [address] [place] [address] Performed By: #### T SPN #### [facility] CLIA [id number] [address] [place] [address] [place] Rh Nom (Bld) Positive Normal [facility] Comment on above: Order Comment: Speci men Type: BLOOD SPECIMEN [facility] Facility: [facility] Address: [address] [place] [address] Performed By: #### T SPN #### [facility] CLIA [id number] [address] [place] [address] [place] TYPE AND SCREEN EXPIRATION 06/18/2023 23:59 Normal [facility] Comment on above: Order Comment: Speci men Type: BLOOD SPECIMEN [facility] Facility: [facility] Address: [address] [place] [address] Performed By: #### T SPN #### [facility] CLIA [id number] [address] [place] [address] [place] URINE OB DIP B/Oon 4 Glucose Ql (U) Negative Neg mg/dL [facility] Protein.monoclonal (U) [Mass/Vol] Negative Neg mg/dL [facility] CNPNon 2023 CNPN Telephone ([facility]) HEIDY ORDOÑEZ ([id number]) 1990 F Date Time Provider Department 05/23/23 NURSE [facility] During your visit today, we recorded the following information about you: Natalia Farmer RN 2023 10:15 AM Signed 1st risk assessment form submitted 2023. Natalia Farmer RN Allergies As of Date: 2023 (No Known Allergies) Date Reviewed: 05/18/2023 Reviewed by: Sejal Pardo LPN - Fully Assessed Reason for Visit: PRAF [4193] Prescriptions as of 2023 - docosahexanoic acid/epa (FISH OIL ORAL) Take by mouth once daily. - PNV no.95/ferrous fum/folic ac ( ORAL) Take by mouth. 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*08/16/2013 08/22/2013 JUDIE II (cervical intraepithelial neoplasia II) *08/22/2013 History of LEEP (loop electrosurgical excision *05/11/2018 Nausea/vomiting in [O21.9] 05/11/2018 11/26/2018 IUGR (intrauterine growth restriction) affectin*11/26/2018 01/21/2019 Short interval between pregnancies affecting pr*09/26/2019 02/14/2022 IUGR (intrauterine growth retardation) in prior*09/26/2019 02/14/2022 Positive GBS test [B95.1] 04/23/2020 01/21/2022 Personal history of anxiety disorder [Z86.59] 05/27/2021 Encounter Status:Closed by NATALIA FARMER on 05/23/23 Normal [facility] Bacteria Ur Culton 4 Bacteria identified Cx Nom (U) ORGANISM ID: 1 <10,000 CFU/ml Mixed microbiota No further workup. Mixed microbiota can be due to???urine???contami nation with skin bacteria at time of collection or presence of a long-term urinary catheter. If a new culture is needed, please consider re-education of the patient on proper midstream collection technique or straight catheterization for???urine???collec tion. Normal [facility] Comment on above: Performed By: #### L [id number] #### [facility] CLIA [id number] [address] [place] [address] [place] [facility] CLIA [id number] [address] [place] [address] [place] #### HPVHRT #### [facility] CLIA [id number] [address] [place] [address] [place] C. trachomatis+N. gonorrhoea e DNA MICHAEL+probe Ql (Unsp spec)on 05-18-2023 C. trachomatis rRNA MICHAEL+probe Ql (Unsp spec) Negative Normal Negative for Chlamydia trachomatis by amplificaton [facility] Comment on above: Order Comment: Speci men Type: FLUID SPECIMEN Ordering Facility: [facility] Address: [address] [place] [address] Performed By: #### L [id number] #### [facility] CLIA [id number] [address] [place] [address] [place] [facility] CLIA [id number] [address] [place] [address] [place] #### HPVHRT #### [facility] CLIA [id number] [address] [place] [address] [place] N. gonorrhoeae rRNA MICHAEL+probe Ql (Unsp spec) Negative Normal Negative for Neisseria gonorrhoeae by amplification [facility] Comment on above: Order Comment: Speci men Type: FLUID SPECIMEN Ordering Facility: [facility] Address: [address] [place] [address] Performed By: #### L [id number] #### [facility] CLIA [id number] [address] [place] [address] [place] [facility] CLIA [id number] [address] [place] [address] [place] #### HPVHRT #### [facility] CLIA [id number] [address] [place] [address] [place] CNCOon 05-18-2023 [facility] Letter Text Normal [facility] Absolute lymphocyte counton 02-03-2022 Lymphocytes Auto (Unsp spec) [#/Vol] 2.45 10*3/uL 0.83-4.51 [facility] Work Phone: [phone] Basophil percentageon 2021 Basophils/100 WBC (Bld) 0.2 % 0-1 [facility] Work Phone: Eosinophils/100 WBC (Bld) 0.2 % 0-5 [facility] Work Phone: [phone] Neutrophils (Bld) [#/Vol] 5.5 10*3/uL 2.0-7.7 [facility] Work Phone: [phone] Neutrophils/100 WBC (Bld) 62.9 % 47-70 [facility] Work Phone: WBC (Bld) [#/Vol] 8.8 10*3/uL 4.4-11.0 [facility] Work Phone: [phone] Blood erythrocytes count (nu mber/volume)on 02-03-2022 RBC (Bld) [#/Vol] 4.36 10*6/uL 4.2-5.4 [facility] Work Phone: [phone] Blood hemoglobin measurement (mass/volume)on 02-03-2022 Hemoglobin (Bld) [Mass/Vol] 14.0 g/dL 12.0-15.0 [facility] Work Phone: Blood lymphocytes/100 leukoc yteson 02-03-2022 Lymphocytes/100 WBC (Bld) 28.0 % 19-41 [facility] Work Phone: Blood monocytes/100 leukocyt eson 02-03-2022 Monocytes/100 WBC (Bld) 8.2 % 0-10 [facility] Work Phone: Blood platelet mean volumeon 02-03-2022 Platelet mean volume (Bld) [Entitic vol] 13.5 fL 6.2-12.0 [facility] Work Phone: Determination of erythrocyte mean corpuscular volume (MCV)on 02-03-2022 MCV (RBC) [Entitic vol] 93.6 fL 81-99 [facility] Work Phone: Hematocrit Auto (Bld) [Volum e fraction]on 02-03-2022 Hematocrit (Bld) [Volume fraction] 40.8 % 37-47 [facility] Work Phone: Laboratory - Hematology and Cell countson 02-03-2022 Erythrocyte distribution width (RBC) [Entitic vol] 42.0 fL 35.1-43.9 [facility] Work Phone: Erythrocyte distribution width (RBC) [Ratio] 12.1 % 11.6-14.6 [facility] Work Phone: Immature granulocytes/100 WBC (Bld) 0.500 % 0.0-0.9 [facility] Work Phone: Comment on above: IG% - Immature Granu locytes (promyelocytes, myelocytes and metamyelocytes) > 1% indicates that a LEFT SHIFT is Present. MCH (RBC) [Entitic mass] 32.1 pg 27.0-32.0 [facility] Work Phone: Nucleated RBC/100 WBC (Bld) [Ratio] 0 % 0-5 [facility] Work Phone: MCHC Auto (RBC) [Mass/Vol]on 02-03-2022 MCHC (RBC) [Mass/Vol] 34.3 g/dL 32-36 [facility] Work Phone: Platelets bldon 02-03-2022 Platelets (Bld) [#/Vol] 126 10*3/uL 150-450 [facility] Work Phone: URINE OB DIP B/Oon 2 Glucose Ql (U) Negative Neg mg/dL [facility] Protein.monoclonal (U) [Mass/Vol] Negative Neg mg/dL [facility] URINE OB DIP B/Oon 2 Glucose Ql (U) Negative Neg mg/dL [facility] Protein.monoclonal (U) [Mass/Vol] Negative Neg mg/dL [facility] URINE OB DIP B/Oon 2 Glucose Ql (U) Negative Neg mg/dL [facility] Protein.monoclonal (U) [Mass/Vol] Negative Neg mg/dL [facility] URINE OB DIP B/Oon 2 Glucose Ql (U) Negative Neg mg/dL [facility] Protein.monoclonal (U) [Mass/Vol] Negative Neg mg/dL [facility] URINE OB DIP B/Oon 2 Glucose Ql (U) Negative Neg mg/dL [facility] Protein.monoclonal (U) [Mass/Vol] Negative Neg mg/dL [facility] URINE OB DIP B/Oon 2 Glucose Ql (U) Negative Neg mg/dL [facility] Protein.monoclonal (U) [Mass/Vol] Negative Neg mg/dL [facility] URINE OB DIP B/Oon 2 Glucose Ql (U) Negative Neg mg/dL [facility] Protein.monoclonal (U) [Mass/Vol] Negative Neg mg/dL [facility] OBSTETRIC ULTRASOUND WHIon 0 09-15-2021 [facility] URINE OB DIP B/Oon 2 Glucose Ql (U) Negative Neg mg/dL [facility] Protein.monoclonal (U) [Mass/Vol] Negative Neg mg/dL [facility] URINE OB DIP B/Oon 2 Glucose Ql (U) Negative Neg mg/dL [facility] Protein.monoclonal (U) [Mass/Vol] Negative Neg mg/dL [facility] Vital Signs Date Time Vital Sign Value Performing Clinician Faci lity 09-06-2024 11:190400 Body height 154.94 cm No Primary Care Physician [facility] 09-06-2024 11:19-0400 Body mass index (BMI) [Ratio] 23.2 kg/m2 No Primary Care Physician [facility] 09-06-2024 11:19-0400 Body weight 55.79 kg No Primary Care Physician [facility] 02-06-2024 11:34-0400 Body mass index (BMI) [Ratio] 23.24 kg/m2 Adina Rivera APRN.CNM Work Phone: [facility] 02-06-2024 11:34-0400 Body weight 55.79 kg Adina Rivera APRN.CNM Work Phone: [facility] 02-06-2024 11:34-0400 Diastolic blood pressure 72 mm[Hg] Adina Rivera APRN.CNM Work Phone: [facility] 02-06-2024 11:34-0400 Systolic blood pressure 106 mm[Hg] Adina Rivera APRN.CNM Work Phone: [facility] 01-09-2024 13:33-0400 Body mass index (BMI) [Ratio] 23.43 kg/m2 Adina Rivera APRN.CNM Work Phone: [facility] 01-09-2024 13:33-0400 Body weight 56.25 kg Adina Rivera APRN.CNM Work Phone: [facility] 01-09-2024 13:33-0400 Diastolic blood pressure 60 mm[Hg] Adina Rivera APRN.CNM Work Phone: [facility] 01-09-2024 13:33-0400 Systolic blood pressure 98 mm[Hg] Adina Rivera APRN.CNM Work Phone: [facility] 12-21-2023 11:22-0400 Body mass index (BMI) [Ratio] 27.21 kg/m2 Cheri Mercedes APRN.CNM Work Phone: [facility] 12-21-2023 11:22-0400 Body weight 65.32 kg Cheri Plotts CARDIOVASCULAR RADIOLOGIC TECHNOLOGIST.CNM Work Phone: [facility] 12-21-2023 11:22-0400 Diastolic blood pressure 76 mm[Hg] Cheri Plotts CARDIOVASCULAR RADIOLOGIC TECHNOLOGIST.CNM Work Phone: [facility] 12-21-2023 11:22-0400 Systolic blood pressure 112 mm[Hg] Cheri Plotts CARDIOVASCULAR RADIOLOGIC TECHNOLOGIST.CNM Work Phone: [facility] 12-14-2023 11:09-0400 Body mass index (BMI) [Ratio] 27.02 kg/m2 Cheri Plotts CARDIOVASCULAR RADIOLOGIC TECHNOLOGIST.CNM Work Phone: [facility] 12-14-2023 11:09-0400 Body weight 64.86 kg Cheri Plotts CARDIOVASCULAR RADIOLOGIC TECHNOLOGIST.CNM Work Phone: [facility] 12-14-2023 11:09-0400 Diastolic blood pressure 66 mm[Hg] Cheri Plotts CARDIOVASCULAR RADIOLOGIC TECHNOLOGIST.CNM Work Phone: [facility] 12-14-2023 11:09-0400 Systolic blood pressure 100 mm[Hg] Cheri Plotts CARDIOVASCULAR RADIOLOGIC TECHNOLOGIST.CNM Work Phone: [facility] 12-07-2023 11:11-0400 Body mass index (BMI) [Ratio] 27.21 kg/m2 Cheri Plotts CARDIOVASCULAR RADIOLOGIC TECHNOLOGIST.CNM Work Phone: [facility] 12-07-2023 11:11-0400 Body weight 65.32 kg Cheri Plotts CARDIOVASCULAR RADIOLOGIC TECHNOLOGIST.CNM Work Phone: [facility] 12-07-2023 11:11-0400 Diastolic blood pressure 74 mm[Hg] Cheri Plotts CARDIOVASCULAR RADIOLOGIC TECHNOLOGIST.CNM Work Phone: [facility] 12-07-2023 11:11-0400 Systolic blood pressure 112 mm[Hg] Cheri Plotts CARDIOVASCULAR RADIOLOGIC TECHNOLOGIST.CNM Work Phone: [facility] 11-30-2023 13:40-0400 Body mass index (BMI) [Ratio] 27.13 kg/m2 Hilda Nixon MD Work Phone: [facility] 11-30-2023 13:40-0400 Body weight 65.14 kg Hilda Nixon MD Work Phone: [facility] 11-30-2023 13:40-0400 Diastolic blood pressure 60 mm[Hg] Hilda Nixon MD Work Phone: [facility] 11-30-2023 13:40-0400 Systolic blood pressure 102 mm[Hg] Hilda Nixon MD Work Phone: [facility] 11-17-2023 11:26-0400 Body mass index (BMI) [Ratio] 26.64 kg/m2 Adina Rivera CARDIOVASCULAR RADIOLOGIC TECHNOLOGIST.CNM Work Phone: [facility] 11-17-2023 11:26-0400 Body weight 63.96 kg Adina Rivera CARDIOVASCULAR RADIOLOGIC TECHNOLOGIST.CNM Work Phone: [facility] 11-17-2023 11:26-0400 Diastolic blood pressure 62 mm[Hg] Adina Rivera CARDIOVASCULAR RADIOLOGIC TECHNOLOGIST.CNM Work Phone: [facility] 11-17-2023 11:26-0400 Systolic blood pressure 110 mm[Hg] Adina Rivera CARDIOVASCULAR RADIOLOGIC TECHNOLOGIST.CNM Work Phone: [facility] 11-06-2023 11:25-0400 Body mass index (BMI) [Ratio] 26.07 kg/m2 Maddy Harris MD Work Phone: [facility] 11-06-2023 11:25-0400 Body weight 62.6 kg Maddy Harris MD Work Phone: [facility] 11-06-2023 11:25-0400 Diastolic blood pressure 60 mm[Hg] Maddy Harris MD Work Phone: [facility] 11-06-2023 11:25-0400 Systolic blood pressure 100 mm[Hg] Maddy Harris MD Work Phone: [facility] 10-19-2023 16:26-0400 Body mass index (BMI) [Ratio] 25.96 kg/m2 Cheri Mercedes CARDIOVASCULAR RADIOLOGIC TECHNOLOGIST.CNM Work Phone: [facility] 10-19-2023 16:26-0400 Body weight 62.32 kg Cheri Mercedes CARDIOVASCULAR RADIOLOGIC TECHNOLOGIST.CNM Work Phone: [facility] 10-19-2023 16:26-0400 Diastolic blood pressure 62 mm[Hg] Cheri Mercedes CARDIOVASCULAR RADIOLOGIC TECHNOLOGIST.CNM Work Phone: [facility] 10-19-2023 16:26-0400 Systolic blood pressure 104 mm[Hg] Cheri Mercedes CARDIOVASCULAR RADIOLOGIC TECHNOLOGIST.CNM Work Phone: [facility] 10-05-2023 11:29-0400 Body mass index (BMI) [Ratio] 25.73 kg/m2 Michelle Ho MD Work Phone: [facility] 10-05-2023 11:29-0400 Body weight 61.78 kg Michelle Ho MD Work Phone: [facility] 10-05-2023 11:29-0400 Diastolic blood pressure 70 mm[Hg] Michelle Ho MD Work Phone: [facility] 10-05-2023 11:29-0400 Systolic blood pressure 110 mm[Hg] Michelle Ho MD Work Phone: [facility] 09-07-2023 10:17-0400 Body mass index (BMI) [Ratio] 25.21 kg/m2 Hilda Nixon MD Work Phone: [facility] 09-07-2023 10:17-0400 Body weight 60.51 kg Hilda Nixon MD Work Phone: [facility] 09-07-2023 10:17-0400 Diastolic blood pressure 62 mm[Hg] Hilda Nixon MD Work Phone: [facility] 09-07-2023 10:17-0400 Systolic blood pressure 110 mm[Hg] Hilda Nixon MD Work Phone: [facility] 08-10-2023 10:00-0400 Body weight 58.06 kg Brigido Arias MD Work Phone: [facility] 08-10-2023 10:00-0400 Diastolic blood pressure 76 mm[Hg] Brigido Arias MD Work Phone: [facility] 08-10-2023 10:00-0400 Systolic blood pressure 118 mm[Hg] Brigido Arias MD Work Phone: [facility] 07-13-2023 11:04-0500 Body weight 55.61 kg Michelle Ho MD Work Phone: [facility] 07-13-2023 11:04-0500 Diastolic blood pressure 70 mm[Hg] Michelle Ho MD Work Phone: [facility] 07-13-2023 11:04-0500 Systolic blood pressure 116 mm[Hg] Michelle Ho MD Work Phone: [facility] 06-15-2023 10:21-0500 Body weight 55.34 kg Brigido Arias MD Work Phone: [facility] 06-15-2023 10:21-0500 Diastolic blood pressure 64 mm[Hg] Brigido Arias MD Work Phone: [facility] 06-15-2023 10:21-0500 Systolic blood pressure 110 mm[Hg] Brigido Arias MD Work Phone: [facility] 03-21-2022 13:58-0500 Body weight 58.06 kg Brigido Arias MD Work Phone: [facility] 03-21-2022 13:58-0500 Diastolic blood pressure 62 mm[Hg] Brigido Arias MD Work Phone: [facility] 03-21-2022 13:58-0500 Systolic blood pressure 114 mm[Hg] Brigido Arias MD Work Phone: [facility] 02-14-2022 13:54-0400 Body weight 57.15 kg Brigido Arias MD Work Phone: [facility] 02-14-2022 13:54-0400 Diastolic blood pressure 70 mm[Hg] Brigido Arias MD Work Phone: [facility] 02-14-2022 13:54-0400 Systolic blood pressure 112 mm[Hg] Brigido Arias MD Work Phone: [facility] 02-04-2022 14:00-0400 Body temperature 97.9 [degF] [facility] Work Phone: 02-04-2022 14:00-0400 Diastolic blood pressure 70 mm[Hg] [facility] Work Phone: 02-04-2022 14:00-0400 Heart rate 65 /min [facility] Work Phone: 02-04-2022 14:00-0400 Respiratory rate 16 /min [facility] Work Phone: 02-04-2022 14:00-0400 SaO2% (BldA) [Mass fraction] 99 % [facility] Work Phone: 02-04-2022 14:00-0400 Systolic blood pressure 111 mm[Hg] [facility] Work Phone: 02-03-2022 06:39-0400 Body height 154.94 cm [facility] Work Phone: 02-03-2022 06:39-0400 Body mass index (BMI) [Ratio] 26.2 kg/m2 [facility] Work Phone: 02-03-2022 06:39-0400 Body weight 63.04 kg [facility] Work Phone: 02-02-2022 08:34-0400 Body weight 63.05 kg Brigido Arias MD Work Phone: [facility] 02-02-2022 08:34-0400 Diastolic blood pressure 70 mm[Hg] Brigido Arias MD Work Phone: [facility] 02-02-2022 08:34-0400 Systolic blood pressure 104 mm[Hg] Brigido Arias MD Work Phone: [facility] 01-22-2022 02:54-0400 Heart rate 72 /min [facility] Work Phone: 01-22-2022 02:54-0400 SaO2% (BldA) [Mass fraction] 99 % [facility] Work Phone: 01-22-2022 00:19-0400 Body temperature 99.5 [degF] [facility] Work Phone: 01-22-2022 00:10-0400 Body height 154.94 cm [facility] Work Phone: 01-22-2022 00:10-0400 Body mass index (BMI) [Ratio] 26.6 kg/m2 [facility] Work Phone: 01-22-2022 00:10-0400 Body weight 64.04 kg [facility] Work Phone: 01-22-2022 00:10-0400 Diastolic blood pressure 68 mm[Hg] [facility] Work Phone: 01-22-2022 00:10-0400 Systolic blood pressure 133 mm[Hg] [facility] Work Phone: 01-21-2022 10:31-0400 Body weight 63.96 kg Maddy Harris MD Work Phone: [facility] 01-21-2022 10:31-0400 Diastolic blood pressure 64 mm[Hg] Maddy Harris MD Work Phone: [facility] 01-21-2022 10:31-0400 Systolic blood pressure 120 mm[Hg] Maddy Harris MD Work Phone: [facility] 01-12-2022 11:01-0400 Body weight 63.5 kg Brigido Arias MD Work Phone: [facility] 01-12-2022 11:01-0400 Diastolic blood pressure 62 mm[Hg] Brigido Arias MD Work Phone: [facility] 01-12-2022 11:01-0400 Systolic blood pressure 118 mm[Hg] Brigido Arias MD Work Phone: [facility] 01-05-2022 10:02-0400 Body weight 63.05 kg Brigido Arias MD Work Phone: [facility] 01-05-2022 10:02-0400 Diastolic blood pressure 68 mm[Hg] Brigido Arias MD Work Phone: [facility] 01-05-2022 10:02-0400 Systolic blood pressure 116 mm[Hg] Brigido Arias MD Work Phone: [facility] 12-08-2021 11:01-0400 Body weight 62.14 kg Brigido Arias MD Work Phone: [facility] 12-08-2021 11:01-0400 Diastolic blood pressure 68 mm[Hg] Brigido Arias MD Work Phone: [facility] 12-08-2021 11:01-0400 Systolic blood pressure 112 mm[Hg] Brigido Arias MD Work Phone: [facility] 11-24-2021 11:39-0400 Body weight 61.24 kg Maddy Harris MD Work Phone: [facility] 11-24-2021 11:39-0400 Diastolic blood pressure 68 mm[Hg] Maddy Harris MD Work Phone: [facility] 11-24-2021 11:39-0400 Systolic blood pressure 110 mm[Hg] Maddy Harris MD Work Phone: [facility] 11-10-2021 11:04-0400 Body weight 60.78 kg Brigido Arias MD Work Phone: [facility] 11-10-2021 11:04-0400 Diastolic blood pressure 60 mm[Hg] Brigido Arias MD Work Phone: [facility] 11-10-2021 11:04-0400 Systolic blood pressure 110 mm[Hg] Brigido Arias MD Work Phone: [facility] 10-13-2021 10:52-0400 Body weight 58.97 kg Brigido Arias MD Work Phone: [facility] 10-13-2021 10:52-0400 Diastolic blood pressure 64 mm[Hg] Brigido Arias MD Work Phone: [facility] 10-13-2021 10:52-0400 Systolic blood pressure 112 mm[Hg] Brigido Arias MD Work Phone: [facility] 09-15-2021 10:43-0400 Body weight 56.25 kg Brigido Arias MD Work Phone: [facility] 09-15-2021 10:43-0400 Diastolic blood pressure 60 mm[Hg] Brigido Arias MD Work Phone: [facility] 09-15-2021 10:43-0400 Systolic blood pressure 102 mm[Hg] Brigido Arias MD Work Phone: [facility] 08-23-2021 11:01-0400 Body weight 58.06 kg Adina Rivera APRN.CNM Work Phone: [facility] 08-23-2021 11:01-0400 Diastolic blood pressure 66 mm[Hg] Adina Rivera APRN.CNM Work Phone: [facility] 08-23-2021 11:01-0400 Systolic blood pressure 110 mm[Hg] Adina Rivera APRN.CNM Work Phone: [facility] Encounters Encounter Date Encounter Type Care Provider Facility Start: 11-05-2024 ambulatory Balwinder Richardson Facility:[facility] Start: 10-23-2024 Encounter for other preprocedural examination [facility] Start: 10-16-2024 End: 10-16-[address] Balwinder Richardson MD -[facility] Work Phone: Start: 10-16-2024 End: 10-16-2024 ambulatory No Primary Care Physician [facility] Work Phone: Start: 10-02-2024 End: 10-02-2024 ambulatory No Primary Care Physician [facility] Work Phone: Start: 10-02-2024 End: 10-02-[address] Balwinder Richardson MD [facility] Work Phone: Start: 10-02-2024 End: 10-02-2024 [facility] Start: 09-10-2024 End: 09-10-[address] Balwinder Richardson MD -[facility] Work Phone: Start: 09-10-2024 End: 09-10-2024 [facility] [place] [place]: 09-06-2024 End: 09-06-2024 Patient encounter procedure Shirley Delacruz MANAGER POST-C -[facility] Work Phone: Start: 09-06-2024 End: 09-06-2024 ambulatory Shirley Delacruz [place] [place] Start: 02-06-2024 End: 02-06-2024 ambulatory ADINA RIVERA Facility:[facility] Start: 02-06-2024 End: 02-06-2024 Patient encounter procedure Adina Rivera APRN.CNM Work Phone: OB/Gynecology Comment on above: care and examination (Primary Dx); Screening for cervical cancer; Screening for human papillomavirus (HPV) Start: 01-09-2024 End: 01-09-2024 ambulatory ADINA RIVERA Facility:[facility] Start: 01-09-2024 End: 01-09-2024 Patient encounter procedure Adina Rivera CARDIOVASCULAR RADIOLOGIC TECHNOLOGIST.CNM Work Phone: OB/Gynecology Comment on above: Vaginal delivery (Pr imary Dx); care and examination of lactating mother; Encounter for screening for maternal depression Start: 12-28-2023 ambulatory Cheri Sandhu y:[facility] Start: 12-26-2023 End: 12-26-2023 ambulatory Adina Rivera APRN.CNM Work Phone: OB/Gynecology Comment on above: Ob Delivery Note Start: 12-26-2023 End: 12-27-2023 Evaluation and management of inpatient Adina Rivera Facility:[facility] Start: 12-21-2023 End: 12-21-2023 ambulatory [facility] Facility:[facility] Start: 12-21-2023 End: 12-21-2023 Patient encounter procedure Cheri Mercedes CARDIOVASCULAR RADIOLOGIC TECHNOLOGIST.CNM Work Phone: OB/Gynecology Comment on above: Supervision of other high risk pregnancies, third trimester (Primary Dx); 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; 39 weeks gestation of Start: 12-14-2023 End: 12-14-2023 ambulatory [facility] Facility:[facility] Start: 12-14-2023 End: 12-14-2023 Patient encounter procedure Cheri Mercedes CARDIOVASCULAR RADIOLOGIC TECHNOLOGIST.CNM Work Phone: OB/Gynecology Comment on above: Supervision of other high risk pregnancies, third trimester (Primary Dx); 38 weeks gestation of ; Circumvallate placenta, second trimester Start: 12-07-2023 End: 12-07-2023 ambulatory [facility] Facility:[facility] Start: 12-07-2023 End: 12-07-2023 Patient encounter procedure Cheri Mercedes CARDIOVASCULAR RADIOLOGIC TECHNOLOGIST.CNM Work Phone: OB/Gynecology Comment on above: Supervision of other high risk pregnancies, third trimester (Primary Dx); 37 weeks gestation of ; Circumvallate placenta, second trimester Start: 11-30-2023 Telephone encounter Hilda johnson MD Work Phone: OB/Gynecology Comment on above: Orders Start: 11-30-2023 End: 11-30-2023 Office outpatient visit 15 minutes Hilda Nixon MD Work Phone: OB/Gynecology Comment on above: 36 weeks gestation o f (Primary Dx); Supervision of other high risk pregnancies, third trimester Start: 11-30-2023 End: 11-30-2023 ambulatory HILDA NIXON Facility:[facility] Start: 11-30-2023 End: 11-30-2023 Patient encounter procedure [facility] Work Phone: OB/Gynecology Comment on above: Encounter for ultras ound to check growth (Primary Dx); Placenta, abnormal, third trimester; 36 weeks gestation of Start: 11-17-2023 End: 11-17-2023 ambulatory ADINA RIVERA Facility:[facility] Start: 11-17-2023 End: 11-17-2023 Patient encounter procedure Adinaalyssa Rivera CARDIOVASCULAR RADIOLOGIC TECHNOLOGIST.CNM Work Phone: OB/Gynecology Comment on above: Supervision of other high risk pregnancies, third trimester (Primary Dx); 34 weeks gestation of ; 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 Start: 11-06-2023 End: 11-06-2023 ambulatory MICHELLE HO Facility:[facility] Start: 11-06-2023 End: 11-06-2023 Patient encounter procedure [facility] Work Phone: OB/Gynecology Comment on above: Placental abnormalit y in third trimester (Primary Dx); 32 weeks gestation of Start: 10-20-2023 Telephone encounter Network Systems Analyst RN Maternal Medicine Comment on above: Network Systems Analyst - O ther (PRAF) Start: 10-19-2023 End: 10-19-2023 ambulatory CHERI MERCEDES Facility:[facility] Start: 10-19-2023 End: 10-19-2023 Patient encounter procedure Cheri Mercedes CARDIOVASCULAR RADIOLOGIC TECHNOLOGIST.CNM Work Phone: OB/Gynecology Comment on above: Encounter for superv ision of other normal in third trimester (Primary Dx); 30 weeks gestation of Start: 10-05-2023 End: 10-05-2023 [facility] HILDA EBONY Facility:[facility] Start: 10-05-2023 End: 10-05-2023 Patient encounter procedure Michelle Ho MD Work Phone: OB/Gynecology Comment on above: 28 weeks gestation o f (Primary Dx); Encounter for supervision of other normal in third trimester Start: 09-08-2023 Telephone encounter Network Systems Analyst RN Maternal Medicine Comment on above: Network Systems Analyst - O ther (PRAF) Start: 09-07-2023 End: 09-07-2023 [facility] Start: 09-07-2023 End: 09-07-2023 Office outpatient visit 15 minutes Hilda Nixon MD Work Phone: OB/Gynecology Comment on above: Encounter for superv ision of other normal in second trimester (Primary Dx); 24 weeks gestation of Start: 08-10-2023 End: 08-10-2023 ambulatory BRIGIDO ARIAS Facility:[facility] Start: 08-10-2023 End: 08-10-2023 Patient encounter procedure Brigido Arias MD Work Phone: OB/Gynecology Comment on above: 20 weeks gestation o f (Primary Dx); Encounter for supervision of other normal in second trimester Encounter for anatomic survey (Primary Dx); 20 weeks gestation of Start: 07-13-2023 End: 07-13-2023 ambulatory MICHELLE HO Facility:[facility] Start: 07-13-2023 End: 07-13-2023 Patient encounter procedure Michelle Ho MD Work Phone: OB/Gynecology Comment on above: Encounter for superv ision of other normal in second trimester (Primary Dx); 16 weeks gestation of Start: 06-15-2023 End: 06-15-2023 ambulatory BRIGIDO ARIAS Facility:[facility] Start: 06-15-2023 End: 06-15-2023 Patient encounter procedure Brigido Arias MD Work Phone: OB/Gynecology Comment on above: Encounter for superv ision of other normal in first trimester (Primary Dx); 12 weeks gestation of ; Encounter for screening of mother; with uncertain dates in first trimester; 7 weeks gestation of ; 8 weeks gestation of Start: 05-18-2023 End: 05-18-2023 ambulatory ZOE BENAVIDEZ Facility:[facility] Start: 03-21-2022 End: 03-21-2022 Patient encounter procedure Brigido Arias MD Work Phone: OB/Gynecology Comment on above: care and examination (Primary Dx) Start: 02-14-2022 End: 02-14-2022 Patient encounter procedure Brigido Arias MD Work Phone: OB/Gynecology Comment on above: Routine f ollow-up (Primary Dx) Start: 02-03-2022 ambulatory Brigido carmona MD Work Phone: OB/Gynecology Comment on above: Ob Delivery Note Start: 02-03-2022 End: 02-04-2022 Evaluation and management of inpatient [facility] Start: 02-02-2022 End: 02-02-2022 Patient encounter procedure Brigido Arias MD Work Phone: OB/Gynecology Comment on above: 39 weeks gestation o f (Primary Dx); Encounter for supervision of other normal in third trimester Start: 01-21-2022 End: 01-22-2022 ambulatory [facility] Work Phone: Start: 01-21-2022 End: 01-22-2022 Patient encounter procedure [facility] Start: 01-21-2022 End: 01-21-2022 Patient encounter procedure Maddy Harris MD Work Phone: OB/Gynecology Comment on above: Encounter for superv ision of other normal in third trimester (Primary Dx); 38 weeks gestation of Start: 01-12-2022 End: 01-12-2022 Patient encounter procedure Brigido Arias MD Work Phone: OB/Gynecology Comment on above: 36 weeks gestation o f (Primary Dx); Encounter for supervision of other normal in third trimester Start: 01-05-2022 End: 01-05-2022 Patient encounter procedure Brigido Arias MD Work Phone: OB/Gynecology Comment on above: Encounter for superv ision of other normal in third trimester (Primary Dx); 35 weeks gestation of Start: 12-08-2021 End: 12-08-2021 Patient encounter procedure Brigido Arias MD Work Phone: OB/Gynecology Comment on above: 31 weeks gestation o f (Primary Dx); Encounter for supervision of other normal in third trimester Start: 11-24-2021 End: 11-24-2021 Patient encounter procedure Maddy Harris MD Work Phone: OB/Gynecology Comment on above: Encounter for superv ision of other normal in third trimester (Primary Dx); Need for vaccination; 29 weeks gestation of Start: 11-10-2021 End: 11-10-2021 Patient encounter procedure Brigido Arias MD Work Phone: OB/Gynecology Comment on above: 27 weeks gestation o f (Primary Dx); Encounter for supervision of other normal in second trimester Start: 10-13-2021 End: 10-13-2021 Patient encounter procedure Brigido Arias MD Work Phone: OB/Gynecology Comment on above: 23 weeks gestation o f (Primary Dx); Short interval between pregnancies affecting , antepartum; Encounter for supervision of other normal in second trimester Start: 09-15-2021 End: 09-15-2021 Patient encounter procedure Brigido Arias MD Work Phone: OB/Gynecology Comment on above: 19 weeks gestation o f (Primary Dx); Short interval between pregnancies affecting , antepartum; Encounter for supervision of other normal in second trimester Encounter for anatomic survey (Primary Dx); 19 weeks gestation of Start: 08-23-2021 End: 08-23-2021 Patient encounter procedure Adina Rivera APRN.CNM Work Phone: OB/Gynecology Comment on above: 16 weeks gestation o f (Primary Dx); Short interval between pregnancies affecting , antepartum; Encounter for supervision of other normal in first trimester Procedures Date Procedure Procedure Detail Performing Clinician Start: 10-02-2024 Ultrasonography of limb No Primary Care Physician Start: 09-06-2024 Plain x-ray of wrist No Primary Care Physician Start: 12-26-2023 Antibody screen Balwinder Richardson Comment on above: Order Comment: Labor Performed By: #### B [id number], L100.0100, BTS #### [facility] [address] [place], [address] Start: 12-21-2023 Urnls dip stick/tabl et rgnt non-auto w/o micrscp Cheri Mercedes CARDIOVASCULAR RADIOLOGIC TECHNOLOGIST.CNM Work Phone: Start: 12-14-2023 Urnls dip stick/tabl et rgnt non-auto w/o micrscp Cheri Plotcarine CARDIOVASCULAR RADIOLOGIC TECHNOLOGIST.CNM Work Phone: Start: 11-30-2023 URINE OB DIP B/O Destiny Nixon MD Work Phone: Start: 11-30-2023 Us preg uterus after 1st trimest 05/08 gestation Hilda Nixon MD Work Phone: Start: 11-06-2023 Us preg uterus after 1st trimest 05/08 gestation Michelle Ho MD Work Phone: Start: 08-10-2023 Us preg uterus after 1st trimest 05/08 gestation Brigido Arias MD Work Phone: Start: 06-15-2023 Antibody screen ZOE ARIAS Comment on above: Order Comment: Speci men Type: BLOOD SPECIMEN Ordering Facility: [facility] Address: [address] [place] [address] Performed By: #### T SPN #### CC [facility] B[facility]OD [facility] [id number] [address] [place] [address] [place] Start: 06-15-2023 Antibody screen rbc each serum technique Zoe Aladdin CARDIOVASCULAR RADIOLOGIC TECHNOLOGIST.WHEELCHAIR VAN DRIVER Work Phone: Start: 06-15-2023 Blood count complete automated Zoe Pramod CARDIOVASCULAR RADIOLOGIC TECHNOLOGIST.WHEELCHAIR VAN DRIVER Work Phone: Start: 06-15-2023 URINE OB DIP B/O Kenna Arias MD Work Phone: Start: 02-02-2022 URINE OB DIP B/O Kenna Arias MD Work Phone: Start: 01-21-2022 URINE OB DIP B/O Maddy Harris MD Work Phone: Start: 01-12-2022 URINE OB DIP B/O Kenna Arias MD Work Phone: Start: 01-05-2022 URINE OB DIP B/O Annikac shyam Arias MD Work Phone: Start: 12-08-2021 URINE OB DIP B/O Annikac shyam Arias MD Work Phone: Start: 11-24-2021 URINE OB DIP B/O Maddy Harris MD Work Phone: Start: 11-10-2021 URINE OB DIP B/O Annikac shyam Arias MD Work Phone: Start: 09-15-2021 URINE OB DIP B/O Annikac shyam Arias MD Work Phone: Start: 09-15-2021 Us preg uterus after 1st trimest 05/08 gestation Adina Rivera APRN.CNM Work Phone: Start: 08-23-2021 URINE OB DIP B/O Juliann Rivera APRN.CNM Work Phone: Plan of Treatment Date Care Activity Detail Author Start: 11-25-[address] [facility] Start: 02-24-2030 Urine microalbumin profile DTAP,TDAP,TD (3 - Td or Tdap) [facility] Start: 02-10-2025 End: 02-10-2025 Patient encounter procedure 02/10/2025 11:30 AM EDT Office Visit OB/Gynecology [address] [place] [address] Adina Rivera APRN.CNM [address] [place] [address] Annual OB/Gynecology Comment on above: Annual Start: 02-05-2025 End: 02-05-2025 Patient encounter procedure 02/05/2025 8:15 AM EDT Office Visit OB/Gynecology [address] [place] [address] Cheri Mercedes APRN.CNM [address] [place] [address] Annual OB/Gynecology Comment on above: Annual Start: 10-01-2024 HPV TESTING HPV TESTING [facility] Start: 10-01-2024 PAP TESTING PAP TESTING [facility] Start: 10-01-2024 Screening for malign ant neoplasm of cervix [facility] Start: 02-06-2024 End: 02-06-2024 Patient encounter procedure 02/06/2024 11:30 AM EDT Office Visit OB/Gynecology [address] [place] [address] Adina Rivera APRN.CNM [address] [place] [address] 4 wk follow up OB/Gynecology Comment on above: 4 wk follow up Start: 01-07-2024 Covid-19 Vaccine ( season) Covid-19 Vaccine ( season) [facility] Start: 01-07-2024 Covid-19 Vaccine ( season) Covid-19 Vaccine ( season) [facility] Start: 01-07-2024 Influenza vaccination [facility] Start: 12-28-2023 End: 12-28-2023 Patient encounter procedure 12/28/2023 11:15 AM EDT Routine Office Visit OB/Gynecology [address] [place] [address] Cheri Mercedes APRN.CNM [address] [place] [address] OB OB/Gynecology Comment on above: OB Start: 12-21-2023 End: 12-21-2023 Patient encounter procedure 12/21/2023 11:15 AM EDT Routine Office Visit OB/Gynecology [address] [place] [address] Cheri Mercedes APRN.CNBrannon [address] [place] [address] OB OB/Gynecology Comment on above: OB Start: 12-14-2023 End: 12-14-2023 Patient encounter procedure 12/14/2023 11:15 AM EDT Routine Office Visit OB/Gynecology [address] [place] [address] Cheri Mercedes APRN.CNM [address] [place] [address] (Fax) OB OB/Gynecology Comment on above: OB Start: 12-07-2023 End: 12-07-2023 Patient encounter procedure 12/07/2023 11:15 AM EDT Routine Office Visit OB/Gynecology [address] [place] [address] Cheri Mercedes APRN.CNBrannon [address] [place] [address] (Fax) OB OB/Gynecology Comment on above: OB Start: 11-30-2023 End: 11-30-2023 Patient encounter procedure OB/Gynecology Comment on above: Growth OB Start: 11-17-2023 End: 11-17-2023 Patient encounter procedure 11/17/2023 11:30 AM EDT Routine Office Visit OB/Gynecology [address] [place] [address] Adina Rivera APRN.CNM [address] [place] [address] (Fax) OB OB/Gynecology Comment on above: OB Start: 11-06-2023 End: 11-06-2023 Patient encounter procedure OB/Gynecology Comment on above: Growth OB Start: 10-19-2023 End: 10-19-2023 Patient encounter procedure 10/19/2023 4:30 PM EDT Routine Office Visit OB/Gynecology [address] [place] [address] Cheri Mercedes APRN.CNM [address] [place] [address] OB OB/Gynecology Comment on above: OB Start: 10-05-2023 End: 10-04-2024 OBSTETRIC ULTRASOUND WHI OBSTETRIC ULTRASOUND WHI Anc Imaging Routine 28 weeks gestation of Encounter for supervision of other normal in third trimester Expected: 10/05/2023, Expires: 10/04/2024 [facility] Work Phone: Comment on above: Expected: 10/05/2023 , Expires: 10/04/2024 Start: 10-05-2023 End: 10-05-2023 Patient encounter procedure 10/05/2023 11:20 AM EDT Routine Office Visit OB/Gynecology [address] [place], [place] [id number] Michelle Ho MD [address] [facility] [place] [address] OB OB/Gynecology Comment on above: OB Start: 09-07-2023 End: 12-07-2023 CBC W Auto Differential panel - Blood COMPLETE BLOOD COUNT AND DIFFERENTIAL Lab Routine Encounter for supervision of other normal in second trimester 24 weeks gestation of Expected: 09/07/2023, Expires: 12/07/2023 [facility] Work Phone: Comment on above: Expected: 09/07/2023 , Expires: 12/07/2023 Start: 09-07-2023 End: 12-07-2023 GESTATIONAL GLUCOSE SCREEN, 1-HOUR, 50 GRAM, NON-FASTING GESTATIONAL GLUCOSE SCREEN, 1-HOUR, 50 GRAM, NON-FASTING Lab Routine Encounter for supervision of other normal in second trimester 24 weeks gestation of Expected: 09/07/2023, Expires: 12/07/2023 [facility] Comment on above: Expected: 09/07/2023 , Expires: 12/07/2023 Start: 09-07-2023 End: 12-07-2023 SYPHILIS TOTAL W/REFLEX SYPHILIS TOTAL W/REFLEX Lab Routine Encounter for supervision of other normal in second trimester 24 weeks gestation of Expected: 09/07/2023, Expires: 12/07/2023 [facility] Comment on above: Expected: 09/07/2023 , Expires: 12/07/2023 Start: 07-13-2023 End: 10-12-2023 ALPHA FETOPRO MATERNAL [facility] Work Phone: Comment on above: Expected: 07/13/2023 , Expires: 10/12/2023 Start: 06-15-2023 End: 06-15-2024 OBSTETRIC ULTRASOUND WHI OBSTETRIC ULTRASOUND WHI Anc Imaging Routine Encounter for supervision of other normal in first trimester Encounter for screening of mother Expected: 06/15/2023, Expires: 06/15/2024 [facility] Work Phone: Comment on above: Expected: 06/15/2023 , Expires: 06/15/2024 Start: 05-08-2023 Behavioral Health Screening Behavioral Health Screening [facility] Start: 05-08-2023 Depression Assessment Depression Ass essment [facility] Start: 01-06-2023 Covid-19 Vaccine () Covid-19 Vaccine () [facility] Start: 01-06-2023 Influenza vaccination Influenza Vacc ine (#1) [facility] Start: 02-04-2022 Patient discharge [facility] Work Phone: Start: 02-03-2022 Administration of medication [facility] Work Phone: Start: 02-03-2022 Application of ice collar, cap or bag [facility] Work Phone: Start: 02-03-2022 Catheterization of vein [facility] Work Phone: Start: 02-03-2022 Introduction of urin colby catheter [facility] Work Phone: Start: 02-03-2022 Measuring intake and output [facility] Work Phone: Start: 02-03-2022 Notification of physician [facility] Work Phone: Start: 02-03-2022 Procedure discontinued [facility] Work Phone: Start: 02-03-2022 Provision of activit y privileges [facility] Work Phone: Start: 02-03-2022 Vital signs measurements [facility] Work Phone: Start: 02-03-2022 [facility] Work Phone: Start: 02-03-2022 Admission procedure [facility] Work Phone: Start: 02-03-2022 Consultation [facility] Work Phone: Start: 01-22-2022 Patient discharge [facility] Work Phone: Start: 01-22-2022 Nonstress test [facility] Work Phone: Start: 01-22-2022 Obstetric monitoring [facility] Work Phone: Start: 01-22-2022 Vital signs measurements [facility] Work Phone: Start: 01-22-2022 [facility] Work Phone: Start: 01-06-2022 Influenza vaccination [facility] Start: 10-13-2021 End: 12-13-2021 CBC W Auto Differential panel - Blood CBC + DIFF Lab Routine 23 weeks gestation of Short interval between pregnancies affecting , antepartum Encounter for supervision of other normal in second trimester Expected: 10/13/2021, Expires: 12/13/2021 [facility] Work Phone: Comment on above: Expected: 10/13/2021 , Expires: 12/13/2021 Start: 10-13-2021 End: 12-13-2021 GEST GLUC SCREEN, 1-HR, 50 GM, NON-FASTING GEST GLUC SCREEN, 1-HR, 50 GM, NON-FASTING Lab Routine 23 weeks gestation of Short interval between pregnancies affecting , antepartum Encounter for supervision of other normal in second trimester Expected: 10/13/2021, Expires: 12/13/2021 [facility] Work Phone: Comment on above: Expected: 10/13/2021 , Expires: 12/13/2021 Start: 10-13-2021 End: 12-13-2021 SYPHILIS TOTAL W/REFLEX SYPHILIS TOTAL W/REFLEX Lab Routine 23 weeks gestation of Short interval between pregnancies affecting , antepartum Encounter for supervision of other normal in second trimester Expected: 10/13/2021, Expires: 12/13/2021 [facility] Work Phone: Comment on above: Expected: 10/13/2021 , Expires: 12/13/2021 Start: 05-08-2021 DEPRESSION ASSESSMENT DEPRESSION ASS ESSMENT [facility] Start: 2008 Hepatitis B Vaccine (1 of 3 - 19+ 3-dose series) Hepatitis B Vaccine (1 of 3 - 19+ 3-dose series) [facility] Start: 2007 Anxiety Screening Anxiety Screening [facility] Start: 2007 Depression Screening Depression Scre ening [facility] Start: 2001 Adult depression screening assessment DEPRESSION SCREENING [facility] Start: 1994 COVID-19 VACCINE (#1) COVID-19 VACCI NE (#1) [facility] Start: 1994 COVID-19 VACCINE (1) COVID-19 VACCIN E (1) [facility] Start: 1989 COVID-19 VACCINE (#1) COVID-19 VACCI NE (#1) [facility] Start: 1989 HEPATITIS B (1 of 3 - 3-dose series) HEPATITIS B (1 of 3 - 3-dose series) [facility] Start: 1989 Hepatitis B Vaccine (1 of 3 - 3-dose series) Hepatitis B Vaccine (1 of 3 - 3-dose series) [facility] Chromosome 21 trisom y [Presence] in Blood or Tissue by Cytogenetics [id number] [id number] Lab Routine 8 weeks gestation of 06/15/2023 10:55 AM EST [facility] Work Phone: Hepatitis B virus childers rface Ag [Presence] in Serum HEP B SURF AG SCRN Lab Routine with uncertain dates in first trimester Encounter for supervision of other normal in first trimester 7 weeks gestation of 06/15/2023 10:55 AM EST [facility] Work Phone: Hepatitis C virus Ab [Presence] in Serum HEPATITIS C ANTIBODY IA WITH CONFIRMATION Lab Routine with uncertain dates in first trimester Encounter for supervision of other normal in first trimester 7 weeks gestation of 06/15/2023 10:55 AM [employer] Work Phone: HIV 1+2 Ab [Presence ] in Serum or Plasma by Immunoassay HIV 1 2 COMBO(AG/AB),WITH REFLEX TO DIFFERENTIATION Lab Routine with uncertain dates in first trimester Encounter for supervision of other normal in first trimester 7 weeks gestation of 06/15/2023 10:55 AM [employer] Work Phone: OBSTETRIC ULTRASOUND WHI OBSTETR IC ULTRASOUND WHI Anc Imaging Routine 16 weeks gestation of Short interval between pregnancies affecting , antepartum Encounter for supervision of other normal in first trimester Ordered: 08/23/2021 [facility] Work Phone: Comment on above: Ordered: 08/23/2021 PAP TEST PAP TEST Lab [facility] diamonde care and examination Screening for cervical cancer Screening for human papillomavirus (HPV) 02/06/2024 3:25 PM EDT [employer] [facility] Work Phone: Patient Education [facility] Work Phone: Patient referral [facility] Work Phone: ROUTINE, GR OUP B STREP PCR ROUTINE, GROUP B STREP PCR Microbiology Routine Encounter for supervision of other normal in third trimester 35 weeks gestation of [facility]: [facility]/05/2022 [facility] Work Phone: Comment on above: Ordered: 01/05/2022 ROUTINE, GR OUP B STREP PCR ROUTINE, GROUP B STREP PCR Microbiology Routine 36 weeks gestation of Supervision of other high risk pregnancies, third trimester 11/30/2023 1:50 PM EDT [facility] Work Phone: RUBELLA IGG AB RUBELLA IGG AB L ab Routine with uncertain dates in first trimester Encounter for supervision of other normal in first trimester 7 weeks gestation of 06/15/2023 10:55 AM [employer] Work Phone: SYPHILIS TOTAL W/REFLEX SYPHILIS TOTAL W/REFLEX Lab Routine with uncertain dates in first trimester Encounter for supervision of other normal in first trimester 7 weeks gestation of 06/15/2023 10:55 AM EST [facility] Work Phone: URINE OB DIP B/O URINE OB DIP B/ O Lab Routine 23 weeks gestation of Short interval between pregnancies affecting , antepartum Encounter for supervision of other normal in second trimester Ordered: 10/13/2021 [facility] Work Phone: Comment on above: Ordered: 10/13/2021 URINE OB DIP B/O URINE OB DIP B/ O Lab Routine 34 weeks gestation of Ordered: 11/17/2023 [facility] Work Phone: Comment on above: Ordered: 11/17/2023 URINE OB DIP B/O URINE OB DIP B/ O Lab Routine Supervision of other high risk pregnancies, third trimester 37 weeks gestation of Ordered: 12/07/2023 [facility] Work Phone: Comment on above: Ordered: 12/07/2023 [facility] Immunizations Immunization Date Immunization Notes Care Provider [facility] 11-24-2021 tetanus toxoid, redu lalo diphtheria toxoid, and acellular pertussis vaccine, adsorbed Maddy Harris MD Work Phone: [facility] 11-19-2021 tetanus toxoid, redu lalo diphtheria toxoid, and acellular pertussis vaccine, adsorbed [facility] 02-25-2020 tetanus toxoid, redu lalo diphtheria toxoid, and acellular pertussis vaccine, adsorbed Aidna Rivera CARDIOVASCULAR RADIOLOGIC TECHNOLOGIST.CNM Work Phone: [facility] 01-23-2019 influenza, injectabl e, quadrivalent, contains preservative Adina Rivera CARDIOVASCULAR RADIOLOGIC TECHNOLOGIST.CNM Work Phone: [facility] 01-23-2019 influenza virus vaccine, unspecified formulation Brigido Arias MD Work Phone: [facility] 10-08-2018 tetanus toxoid, redu lalo diphtheria toxoid, and acellular pertussis vaccine, adsorbed Adina Rivera APRN.IDALIA Work Phone: [facility] Payers Date Payer Category Payer Self-pay [id number] 2022 Unknown [id number] 2020 Medicaid [place] [employer] [place] [id number] 2020[facility] [phone] [address] [place] [address] Medicaid [id number] 2020 Medicaid [id number] Unknown [id number] Unknown [id number] Unknown [id number] Unknown [id number] Unknown [id number] Unknown [id number] Unknown [id number] Unknown [id number] Unknown [id number] Social History Date Type Detail Facility Start: 02-14-2022 End: 09-05-2024 Tobacco smoking status NHIS Never smoked tobacco [facility] Work Phone: Start: 08-23-2021 End: 02-06-2024 Alcohol intake Ex-drinker (finding) [facility] Start: 05-11-2018 History SDOH Alcohol Comment rarely, not whi;e [facility] Start: 09-26-2019 History SDOH Financial 4 [facility] Start: 09-26-2019 History SDOH Food Worry 1 [facility] Start: 09-26-2019 History SDOH Transpo rt Med 2 [facility] Start: 09-26-[address] [facility] Start: 05-14-2021 [facility] Start: 1989 Sex Assigned At Not on file [facility] Start: 09-05-2021 End: 02-02-2022 Exposure to SARS-CoV-2 (event) Not sure [facility] Start: 05-09-2020 End: 02-03-2022 Tobacco smoking status NHIS Unknown if ever smoked [facility] Work Phone: Start: 05-10-2020 None [facility] Start: 1989 Sex Assigned At Female [facility] Start: 02-14-2022 End: 05-18-2023 Tobacco use and exposure Smokeless tobacco non-user [facility] Start: 05-18-2023 End: 12-07-[address] [facility] [facility] Start: 05-18-2023 End: 12-07-[address] [facility] How hard is it for y ou to pay for the very basics like food, housing, medical care, and heating Not very hard [facility] (I/We) worried tushar er (my/our) food would run out before (I/we) got money to buy more. Never true [facility] In the past 12 month s, has lack of transportation kept you from medical appointments or from getting medications? No [facility] The thought of alda mora myself has occurred to me Never [facility] NEGATED: Highlighted rowStart: JANENEF History of tobacco use Passive smoker [facility] Goals Date Patient Goal Desired Activity /State Personal health goal Clinical Notes 11-26-2018 to 10-16-2024 Note Date & Type Note Facility 10-16-2024 Progress note [facility] 10-16-2024 Progress note Note Date/Time October 16, 2024 2:48pm [facility] [address], [address] [place], [place] [address] OFFICE VISIT Date of Service: 10/16/24 MR#: [id number] Acct: [id number] Name: HEIDY ORDOÑEZ Rep #: [id number] : 1990 Provider: Dr. Eugene Richardson MD Age/Sex: 34/F [place] [facility] [place]: Signed Intake Vital Signs 3 09/06/24 11:19 Height 5 ft 1 in Weight: 123 lb BMI 23.2 Intake Visit Reasons: ULTRASOUND RESULTS Chief Complaint: cyst on left wrist Allergies No Known Allergies Allergy (Verified 09/10/24 15:30) PFSH Medical History Circumvallate placenta depression Anxiety Surgical History [place] teeth removed H/O LEEP Social History Smoking Status: Never smoker HPI ULTRASOUND RESULTS Details: Heidy Ordoñez is a delightful 34-year-old female with no significant contributory past medical history who presents with a left wrist dorsal ganglion cyst as a referral from [facility] ([facility] [place]). Patient reports that the cyst has been there for several years but has been getting larger recently and causes her an aching dull irritation pain after she uses her left wrist to carry her children. She has 4 young children, including a toddler and an 8-month-old. She is currently breast-feeding. Patient may have jammed her hand playing sports growing up but does not rememberany severe trauma to the hand or wrist. She does have a history of doing [employer] and lifting weights, but she currently just does light/endurance weightlifting. No personal or family history of bleeding or clotting problems. She is not a smoker. 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 Here to discuss her ultrasound results and the timing of ganglion cyst removal. She reports that she has pain in the cyst from time to time, and would like it removed not aspirated. Exam Details Left Upper Extremity Examined again today Inspection: 3 x 3 cm dorsal wrist mass within the 3/4 interval Palpation: No SL ligament instability (negative Redmond shift test). The wrist mass is mobile. Motor: Able to bend and extend all MP, PIP, and DIP joints. Sensory: Intact to light touch on the radial and ulnar borders. No numbness on the dorsal radial hand Vascular: Finger tips are warm and well perfused with <2 second capillary refill. Photo from 11 October 2024: Coding Level of Care Code Off vis,est,level 2 Diagnoses Ganglion cyst of dorsum of left wrist M67.432 Assessment and Plan (No Qualifiers) Assessment and Plan (1) Ganglion cyst of dorsum of left wrist: Status: Acute Plan: We discussed the differential diagnosis for the mass. Common masses in the hand include ganglion cyst of tendon sheath, giant cell tumor of tendon sheath, and lipoma. All these masses are benign. We also discussed that over 95% of the masses found in the hand and fingers are benign, and not cancerous. Treatment options for these masses include observation vs surgical excision. Alternatively, if the mass is a ganglion cyst of tendon sheath may potentially be treated with needle puncture if it is located in the midline over the flexor tendon. When the ganglion cyst is located off mid-line, overlying the course of digital nerve and artery, needle puncture will run the risk of nerve/artery injury.? Discussed post-operative splinting (1 month with wrist splint) and lifting precautions. Discussed risks of surgery like SBRN damage/nerve pain, infection, SL ligament disruption, infection, bleeding, and risks of anesthesia. After discussion, the patient would like to proceed with mass excision under local anesthesia [with] sedation. Plan to do this summer when the patient is done breast feeding and does not need to lift children as much (parents can assist). CPT codes for insurance prior authorization are as follows: 55916, 30856 Plan from 16 October 2024: I reiterated the above noted risks (including nerve injury and vessel ligament injury). We also talked about the risks of cyst recurrence, which is a possibility. We also talked about poor scarring. We discussed removal of the likely cyst and reviewed the ultrasound results. I talked to her about potential for persistent pain regardless of if we remove the cyst, and that there is no guarantees that removal of the cyst will improve any of her pain, and could actually make it worse/irritate the area. I also talked her about other options including aspiration or monitoring. She would like the cyst excised. Patient happy with the plan. 10/16/24 1448 <Electronically signed by Balwinder Richardson MD> Date _ Balwinder Richardson MD Cosigner Signature: Date (if applicable) CC: ~ [facility] Work Phone: [phone] Radiology Diagnostic study note [facility] [address] [place] [address] [id number] Ext Non Vasc Limited/Soft Tiss MR#: [id number] Acct: [id number] Name: HEIDY ORDOÑEZ Rep #: [id number] : 1990 F 34 From: Nessa Kapadia MD PCP: Care Physician,No Primary Status: REG CL Study:Ext Non Vasc Limited/Soft Tiss Date of Exam: 10/02/24 Exam# [id number] Ordering Dr: Lucila Richardson MD PROCEDURE: EXT NON VASC LIMITED/SOFT TISS 10/02/2024 REASON FOR EXAM: GANGLION CYST OF LEFT WRIST TECHNIQUE: Ultrasound targeted to the palpable abnormality at the left wrist. COMPARISON: None FINDINGS: Heterogeneous echogenic lesion in the dorsal aspect of the left wrist measuring 1.2 x 1.7 x 0.8 cm.No internal vascularity. US/Ext Non Vasc Limited/Soft Tiss IMPRESSION: Complex cysts as above. Reading Location: [facility] CC: Dr. Balwinder Richardson MD; No Primary Care Physician ~ Bookkeeping Clerk: Signed [facility]05-02-2025 Evaluation note* Diagnosis Onset Date Resolution Status Admit Date Ganglion cyst of dorsum of l eft wrist acute September 06, 2024 11 :09am Ganglion cyst of dorsum of l eft wrist acute September 10, 2024 3: 17pm [facility] Work Phone: 1(206) 925-623705-02-2025 Evaluation note* Diagnosis Onset Date Resolution Status Admit Date Ganglion cyst of dorsum of l eft wrist acute September 06, 2024 11 :09am Ganglion cyst of dorsum of l eft wrist acute September 10, 2024 3: 17pm Ganglion cyst of dorsum of l eft wrist acute October 16, 2024 2:34pm [facility] Work Phone: 1(615) 318-382810-01-2024 Note* Addendum Note - Adina Rivera APRN.CNM - 02/06/2024 3:20 PM EDTAddended by: ADINA RIVERA on: 02/06/2024 03:20 PM Modules accepted: Orders [facility]10-01-2024 Miscellaneous Notes* Addendum Note - Adina Rivera APRN.CNM - 02/06/2024 3:20 PM EDTAddended by: ADINA RIVERA on: 02/06/2024 03:20 PM Modules accepted: Orders * Addendum Note - Dru Polanco MA - 02/06/2024 1:55 PM EDTAddended by: DRU POLANCO on: 02/06/2024 01:55 PM Modules accepted: Orders documented in this encounterSt. [facility] Note* Addendum Note - Dru Polanco MA - 02/06/2024 1:55 PM EDTAddended by: DRU POLANCO on: 02/06/2024 01:55 PM Modules accepted: Orders [facility]10-01-2024 NoteHNO ID: [id number] Author: ADINA RIVERA APRN.CNM Service: ? Author Type: Teacher Instrumental Type: Progress Notes Filed: 02/06/2024 13:19 Note Text: Hat And Cap Sewer offered: Patient declines. VISIT Heidy Ordoñez is a 33 year old year old here for visit. Delivery Summary: Date: 12/26/2023 Sex: F Name: Iván Weight: 8# 1oz Outcome: Anesthesia: None Delivered by: MAULIK Perineal repair: None ROS/ Recovery: Feeding: Breast feeding problems: None Menses since delivery: None Menstrual pattern prior to : Irregular periods [place] since delivery: Not resumed Depression: denies symptoms of depression. OB Depression and Anxiety Screening- This Encounter (since 02/05/2024) Over the past 2 weeks have you felt down, depressed, or hopeless? Negative Over the past two weeks, have you felt little interest or pleasure in doing things?? 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 PAST SURGICAL HISTORY Procedure Laterality Date 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 MIRENA IUD 08/2014 UNSPECIFIED ORAL SURGERY PROCEDURE, BY REPORT 2006 FAMILY HISTORY Problem Relation Age of Onset No Known Problems Mother Heart Father other (Colitis) Brother Stroke Maternal Grandmother Kidney Disease Maternal Grandfather Breast Cancer Paternal Grandmother 60 Cancer Paternal Grandfather No Known Problems Daughter No Known Problems Son Social History Tobacco Use Smoking status: Never Passive exposure: Never Smokeless tobacco: Never Vaping Use Vaping status: Never Used Substance Use Topics Alcohol use: Not Currently Comment: rarely, not whi;e Drug use: No PHYSICAL EXAMINATION: SENSITIVE EXAM: The sensitive examination was discussed with the Patient or Patient's Authorized District Fire Management Officer. As applicable, any other physician, advance practice provider, medical student, or other health professional student that will be observing or involved in the sensitive examination for educational or training purposes was discussed with the Patient or Authorized District Fire Management Officer. The Patient or Authorized District Fire Management Officer has agreed to proceed with the sensitive examination. (Sensitive examination includes inspection and/or palpation of the breasts, pelvis, prostate and anorectal regions). BP 106/72 Wt 123 lb (55.8kg) LMP 03/23/2023 GENERAL: pleasant, female in no apparent distress HEENT: Normocephalic, atraumatic, mucus membranes moist, and no lesions NECK: Supple, full range of motion, no adenopathy, and thyroid normal DERMATOLOGY: Normal, without lesions, non-icteric, and non-hirsute BREAST: soft, non-tender, symmetric, no dominant mass, normal nipple-areolar complex, no lymphadenopathy, and no nipple discharge CHEST: Clear to auscultation, Normal inspiratory effort, Regular rate and rhythm, and No murmurs, clicks, rubs or gallops ABDOMEN: soft, non-tender, and no masses. INCISION: N/A PELVIC: external genitalia normal, no vulvar lesions, no cervical lesions, good vaginal support, physiologic discharge present, normal appearing perineal body and perianal region, normal skenes gland, right side bartholin cyst present mildly tender, approximately [id number], no exudate, non erythematous, BIMANUAL: uterus normal size, shape and consistency, midposition, no adnexal masses, non-tender, and no cervical motion tenderness NEURO: alert and oriented x3,exam grossly non-focal EXTREMITIES: normal ASSESSMENT AND PLAN: 33 year old status post water with normal course. Contraception plan: Natural Family Planning Follow up: 1 year for annual exam. Repeat Pap Smear today due to no endocervical component. Adina Rivera APRN.[facility]10-01-2024 History of Present illness Narrative* Adina Rivera APRN.[facility] - 02/06/2024 11:30 AM EDT Hat And Cap Sewer offered: Patient declines. VISIT Heidy Ordoñez is a 33 year old year old here for visit. Delivery Summary: Date: 12/26/2023 Sex: F Name: Iván Weight: 8# 1oz Outcome: Anesthesia: None Delivered by: MAULKI Perineal repair: None ROS/ Recovery: Feeding: Breast feeding problems: None Menses since delivery: None Menstrual pattern prior to : Irregular periods [place] since delivery: Not resumed Depression: denies symptoms of depression. OB Depression and Anxiety Screening- This Encounter (since 02/05/2024) Over the past 2 weeks have you felt down, depressed, or hopeless? Negative Over the past two weeks, have you felt little interest or pleasure in doing things? 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 PAST SURGICAL HISTORY Procedure Laterality Date 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 MIRENA IUD 08/2014 UNSPECIFIED ORAL SURGERY PROCEDURE, BY REPORT 2006 FAMILY HISTORY Problem Relation Age of Onset No Known Problems Mother Heart Father other (Colitis) Brother Stroke Maternal Grandmother Kidney Disease Maternal Grandfather Breast Cancer Paternal Grandmother 60 Cancer Paternal Grandfather No Known Problems Daughter No Known Problems Son Social History Tobacco Use Smoking status: Never Passive exposure: Never Smokeless tobacco: Never Vaping Use Vaping status: Never Used Substance Use Topics Alcohol use: Not Currently Comment: rarely, not whi;e Drug use: No PHYSICAL EXAMINATION: SENSITIVE EXAM: The sensitive examination was discussed with the Patient or Patient's Authorized District Fire Management Officer. As applicable, any other physician, advance practice provider, medical student, or other health professional student that will be observing or involved in the sensitive examination for educational or training purposes was discussed with the Patient or Authorized District Fire Management Officer. The Patient or Authorized District Fire Management Officer has agreed to proceed with the sensitive examination. (Sensitive examination includes inspection and/or palpation of the breasts, pelvis, prostate and anorectal regions). BP 106/72 Wt 123 lb (55.8kg) LMP 03/23/2023 GENERAL: pleasant, female in no apparent distress HEENT: Normocephalic, atraumatic, mucus membranes moist, and no lesions NECK: Supple, full range of motion, no adenopathy, and thyroid normal DERMATOLOGY: Normal, without lesions, non-icteric, and non-hirsute BREAST: soft, non-tender, symmetric, no dominant mass, normal nipple-areolar complex, no lymphadenopathy, and no nipple discharge CHEST: Clear to auscultation, Normal inspiratory effort, Regular rate and rhythm, and No murmurs, clicks, rubs or gallops ABDOMEN: soft, non-tender, and no masses. INCISION: N/A PELVIC: external genitalia normal, no vulvar lesions, no cervical lesions, good vaginal support, physiologic discharge present, normal appearing perineal body and perianal region, normal skenes gland, right side bartholin cyst present mildly tender, approximately [id number], no exudate, non erythematous, BIMANUAL: uterus normal size, shape and consistency, midposition, no adnexal masses, non-tender, and no cervical motion tenderness NEURO: alert and oriented x3,exam grossly non-focal EXTREMITIES: normal ASSESSMENT AND PLAN: 33 year old status post water with normal course. Contraception plan: Natural Family Planning Follow up: 1 year for annual exam. Repeat Pap Smear today due to no endocervical component. Adina Rivera APRN.CNM documented in this encounterSt. [facility]09-[facility]24 NoteHNO ID: [id number] Author: ADINA RIVERA APRN.CNM Service: ? Author Type: Teacher Instrumental Type: Progress Notes Filed: 01/09/2024 14:17 Note Text: EARLY VISIT Heidy Ordoñez is a 33 year old here for 2 week visit. Delivery Summary: - 12/26/2023 Female Iván 8lb 1oz ROS: General: Denies any fever or chills Hypertension Screening: Headache? No. Visual Changes? No Epigastric Pain? No Increased Swelling? No Taking any BP medications at home? No If applicable, monitoring BP at home? (If Yes, include results) NA Mood: normal Depression: denies symptoms of depression. OB Depression and Anxiety Screening- This Encounter (since 01/08/2024) Over the past 2 weeks have you felt down, depressed, or hopeless? Negative Over the past two weeks, have you felt little interest or pleasure in doing things?? Negative Feeling nervous, anxious or on edge 0-Not at all Not being able to stop or control worrying 0-Not al all Anxiety Pre-Screening Total (If >/= 3 additional questions will be reviewed) 0 Feeding: Breast feeding problems: None Bladder: No dysuria, gross hematuria, urinary frequency, urinary urgency, or incontinence Bowel symptoms: Negative for abdominal discomfort, blood in stools or black stools and change in bowel habits Abdomen: N/A Bleeding: light flow Bottom and Perineum: No issues Sleep: no sleep concerns, feels rested [place] since delivery: Resumed Emotional support: Yes Exercise: N/A Other issues: None PHYSICAL EXAMINATION: Wt 56.2 kg (124 lb) LMP 03/23/2023 (Exact Date) Yes BMI 23.43 kg/m? General: pleasant,female in no apparent distress, AANDO x 3. Skin warm and intact. Breast: Deferred Abdomen: Deferred /Incision: N/A Pelvic: Deferred Bimanual: Deferred ASSESSMENT AND PLAN: 33 year old status post with normal course. Contraception plan: none. Reinforced 6-week pelvic rest. Encouraged condom usage should patient deviate. Education: resources provided - see MA/RN note Follow up: Return to Clinic for 6 week visit and as needed Adina Rivera APRN.[facility]09-03-2024 History of Present illness Narrative* Adina Rivera APRN.[facility] - 01/09/2024 1:31 PM EDT EARLY VISIT Heidy Ordoñez is a 33 year old here for 2 week visit. Delivery Summary: - 12/26/2023 Female Iván 8lb 1oz ROS: General: Denies any fever or chills Hypertension Screening: Headache? No. Visual Changes? No Epigastric Pain? No Increased Swelling? No Taking any BP medications at home? No If applicable, monitoring BP at home? (If Yes, include results) NA Mood: normal Depression: denies symptoms of depression. OB Depression and Anxiety Screening- This Encounter (since 01/08/2024) Over the past 2 weeks have you felt down, depressed, or hopeless? Negative Over the past two weeks, have you felt little interest or pleasure in doing things? Negative Feeling nervous, anxious or on edge 0-Not at all Not being able to stop or control worrying 0-Not al all Anxiety Pre-Screening Total (If >/= 3 additional questions will be reviewed) 0 Feeding: Breast feeding problems: None Bladder: No dysuria, gross hematuria, urinary frequency, urinary urgency, or incontinence Bowel symptoms: Negative for abdominal discomfort, blood in stools or black stools and change in bowel habits Abdomen: N/A Bleeding: light flow Bottom and Perineum: No issues Sleep: no sleep concerns, feels rested [place] since delivery: Resumed Emotional support: Yes Exercise: N/A Other issues: None PHYSICAL EXAMINATION: Wt 56.2 kg (124 lb) LMP 03/23/2023 (Exact Date) Yes BMI 23.43 kg/m General: pleasant,female in no apparent distress, A&O x 3. Skin warm and intact. Breast: Deferred Abdomen: Deferred /Incision: N/A Pelvic: Deferred Bimanual: Deferred ASSESSMENT AND PLAN: 33 year old status post with normal course. Contraception plan: none. Reinforced 6-week pelvic rest. Encouraged condom usage should patient deviate. Education: resources provided - see MA/RN note Follow up: Return to Clinic for 6 week visit and as needed Adina Rivera APRN.CNM documented in [facility] encounterSt[facility]-2024 NoteHNO ID: [id number] Author: SHABNAM FAGAN RN Service: ? Author Type: Registered Nurse Type: Progress Notes Filed: 12/26/2023 11:36 Note Text: Patient delivered via by Moises on 12/26/23 at [facility]. See OB history. [facility]abnam Fagan [facility] History of Present illness Narrative* Shabnam Fagan RN - 12/26/2023 11:34 AM EDT Patient delivered via by Moises on 12/26/23 at [facility]. See OB history. Shabnam Fagan RN documented in this encounterSt. [facility]08-15-2024 Progress note* Quick Notes - Cheri Mercedes APRN.CNM - 12/21/2023 11:27 AM EDT S: Heidy Ordoñez is a 33 year old female who presents at 39 weeks gestation for a routine visit. Positivce movement. Increased pelvic pressure at times. Some contractions but they resolve on own. Denies headache, visual changes, chest pain, shortness of breath, vaginal bleeding, leakage of fluid, or dysuria. Feeling well, no complaints. Requesting CE with membrane sweep today. R/B/A reviewed and verbal consent obtained. O: See flow sheet Gen: No apparent distress Abd: Gravid, nontender ASSESSMENT/PLAN: 1. Supervision of other high risk pregnancies, third trimester - ICD9: V23.89, ICD10: O09.893 (primary diagnosis) 2. 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 Placental abnormality in third trimester - ICD9: 656.73, ICD10: O43.103 4. 39 weeks gestation of - ICD9: V22.2, ICD10: Z3A.39 - CE FT/High- unable to complete membrane sweep - Discussed and educated on how to perform nipple stimulation to help continue contractions - Labor precautions reviewed and when to call office - RTO 1 week for JASON Mercedes APRN.CNM [facility]08-15-2024 Miscellaneous Notes* Quick Notes - Cheri Mercedes APRN.CNM - 12/21/2023 11:27 AM EDT S: Heidy Ordoñez is a 33 year old female who presents at 39 weeks gestation for a routine visit. Positivce movement. Increased pelvic pressure at times. Some contractions but they resolve on own. Denies headache, visual changes, chest pain, shortness of breath, vaginal bleeding, leakage of fluid, or dysuria. Feeling well, no complaints. Requesting CE with membrane sweep today. R/B/A reviewed and verbal consent obtained. O: See flow sheet Gen: No apparent distress Abd: Gravid, nontender ASSESSMENT/PLAN: 1. Supervision of other high risk pregnancies, third trimester - ICD9: V23.89, ICD10: O09.893 (primary diagnosis) 2. 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 Placental abnormality in third trimester - ICD9: 656.73, ICD10: O43.103 4. 39 weeks gestation of - ICD9: V22.2, ICD10: Z3A.39 - CE FT/High- unable to complete membrane sweep - Discussed and educated on how to perform nipple stimulation to help continue contractions - Labor precautions reviewed and when to call office - RTO 1 week for JASON Mercedes APRN.CNM documented in this encounterSt. [facility]08-15-2024 Instructions* Patient Instructions* Dru Polanco MA - 12/21/2023 11:18 AM EDT SEQUENTIAL SCREENINGS The [facility] offers sequential screenings for women who are interested in screenings for chromosomal abnormalities and certain defects during a . The sequential screen combinesultrasound and blood tests to determine the risk of chromosomal abnormalities, including Down's Syndrome (Trisomy 21) and Trisomy 18, as well as open neural tube defects including spina bifida. Ultrasound examination is performed between 11 weeks and 13 weeks gestational age. Blood tests are drawn after the ultrasound and again later in the between 15 and 21 weeks gestational age. Please let your physician know if you are interested in this testing. It will require an appointment withour crown and bridge dental lab technician. This is not an ultrasound performed by a physician in our office during a routine visit. SIGNS AND SYMPTOMS OF LABOR 1. Contractions every 10 minutes or more often 2. Clear, pink, or brownish fluid (water) leaking from vagina 3. Feeling that baby is pushing down, pressure 4. Low, dull backache 5. Cramps that feel like a period 6. Cramps with or without diarrhea If you notice any of the above symptoms, contact our office at [phone] and ask to speak with anurse. After hours, you can call doctors registry at [phone] OR call [facility] at [phone] ask to have the doctor educational consultant paged. If you consider this an emergency, dial 9-9 or go to your nearest emergency department. NEED HELP? Are you dealing with a violent or abusive relationship? Are you a victim of rape or sexual assult? Call [facility] ([place]) 24 hour Crisis Hotline: 857.704.2606 or 832-605-3596. MANUAL Your Guide to a Healthy manual is now on-line. Visit [email or web address][email or web address] to download your free copy documented in [facility] encounterSt[facility] Progress note* Quick Notes - Cheri Mercedes APRN.CNM - 12/14/2023 11:24 AM EDT S: Heidy Ordoñez is a 33 year old female who presents at 38 weeks gestation for a routine visit. Positive movement. Occasional danica conteh contractions. Continues to stay active. Denies headache, visual changes, chest pain, shortness of breath, vaginal bleeding, leakage of fluid, or dysuria. Feeling well, no complaints. O: See flow sheet Gen: No apparent distress Abd: Gravid, nontender ASSESSMENT/PLAN: 1. Supervision of other high risk pregnancies, third trimester - ICD9: V23.89, ICD10: O09.893 (primary diagnosis) 2. 38 weeks gestation of - ICD9: V22.2, ICD10: Z3A.38 3. Circumvallate placenta, third trimester - GBS negative - EFW 51%, DAVID 22 at 36 weeks - Labor precautions reviewed - RTO 1 week- Patient may want CE with membrane sweep Cheri Mercedes APRN.CNM [facility] Miscellaneous Notes* Quick Notes - Cheri Mercedes APRN.CNM - 12/14/2023 11:24 AM EDT S: Heidy Ordoñez is a 33 year old female who presents at 38 weeks gestation for a routine visit. Positive movement. Occasional danica conteh contractions. Continues to stay active. Denies headache, visual changes, chest pain, shortness of breath, vaginal bleeding, leakage of fluid, or dysuria. Feeling well, no complaints. O: See flow sheet Gen: No apparent distress Abd: Gravid, nontender ASSESSMENT/PLAN: 1. Supervision of other high risk pregnancies, third trimester - ICD9: V23.89, ICD10: O09.893 (primary diagnosis) 2. 38 weeks gestation of - ICD9: V22.2, ICD10: Z3A.38 3. Circumvallate placenta, third trimester - GBS negative - EFW 51%, DAVID 22 at 36 weeks - Labor precautions reviewed - RTO 1 week- Patient may want CE with membrane sweep Cheri Mercedes APRN.CNM documented in this encounterSt. [facility] Hospital08-[facility]24 Instructions* Patient Instructions* Dru Polanco MA - 12/14/2023 11:05 AM EDT SEQUENTIAL SCREENINGS The [facility] offers sequential screenings for women who are interested in screenings for chromosomal abnormalities and certain defects during a . The sequential screen combinesultrasound and blood tests to determine the risk of chromosomal abnormalities, including Down's Syndrome (Trisomy 21) and Trisomy 18, as well as open neural tube defects including spina bifida. Ultrasound examination is performed between 11 weeks and 13 weeks gestational age. Blood tests are drawn after the ultrasound and again later in the between 15 and 21 weeks gestational age. Please let your physician know if you are interested in this testing. It will require an appointment withour crown and bridge dental lab technician. This is not an ultrasound performed by a physician in our office during a routine visit. SIGNS AND SYMPTOMS OF LABOR 1. Contractions every 10 minutes or more often 2. Clear, pink, or brownish fluid (water) leaking from vagina 3. Feeling that baby is pushing down, pressure 4. Low, dull backache 5. Cramps that feel like a period 6. Cramps with or without diarrhea If you notice any of the above symptoms, contact our office at [phone] and ask to speak with anurse. After hours, you can call doctors registry at [phone] OR call [facility] at [phone] ask to have the doctor educational consultant paged. If you consider this an emergency, dial 8-2-4 or go to your nearest emergency department. NEED HELP? Are you dealing with a violent or abusive relationship? Are you a victim of rape or sexual assult? Call [facility] ([place]) 24 hour Crisis Hotline: 260.937.8176 or 356-401-4550. MANUAL Your Guide to a Healthy manual is now on-line. Visit [email or web address] to download your free copy documented in this encounterSt. [facility] Hospital08-[facility] Progress note* Quick Notes - Cheri Mercedes APRN.CNM - 12/07/2023 11:33 AM EDT S: Heidy Ordoñez is a 33 year old female who presents at 37 weeks gestation for a routine visit. Positive movement. Occasional danica conteh. Denies headache, visual changes, chest pain, shortness of breath, vaginal bleeding, leakage of fluid, or dysuria. Feeling well, no complaints. O: See flow sheet Gen: No apparent distress Abd: Gravid, non tender S=D ASSESSMENT/PLAN: 1. Supervision of other high risk pregnancies, third trimester - ICD9: V23.89, ICD10: O09.893 (primary diagnosis) 2. 37 weeks gestation of - ICD9: V22.2, ICD10: Z3A.37 3. Circumvallate placenta - Growth US last week: EFW 51%, DAVID 22 - GBS negative - MOD- desires physiological onset of labor and water - Handout on preparing body for labor given to patient - Continue daily intake of dates and red raspberry leaf tea - Labor precautions reviewed - RTO 1 week Cheri Mercedes APRN.CNM [facility] Miscellaneous Notes* Quick Notes - Cheri Mercedes APRN.CNM - 12/07/2023 11:33 AM EDT S: Heidy Ordoñez is a 33 year old female who presents at 37 weeks gestation for a routine visit. Positive movement. Occasional danica conteh. Denies headache, visual changes, chest pain, shortness of breath, vaginal bleeding, leakage of fluid, or dysuria. Feeling well, no complaints. O: See flow sheet Gen: No apparent distress Abd: Gravid, non tender S=D ASSESSMENT/PLAN: 1. Supervision of other high risk pregnancies, third trimester - ICD9: V23.89, ICD10: O09.893 (primary diagnosis) 2. 37 weeks gestation of - ICD9: V22.2, ICD10: Z3A.37 3. Circumvallate placenta - Growth US last week: EFW 51%, DAVID 22 - GBS negative - MOD- desires physiological onset of labor and water - Handout on preparing body for labor given to patient - Continue daily intake of dates and red raspberry leaf tea - Labor precautions reviewed - RTO 1 week Cheri Mercedes APRN.CNM documented in this encounterSt. [facility] Hospital08-01-2024 Instructions* Patient Instructions* Cheri Mercedes APRN.CNM - 12/07/2023 11:11 AM EDT Images from the original note were not included. Preparing for labor: Eat dates to promote spontaneous labor! Has an oxytocin-like effect on the body, leading to increased sensitivity of the uterus. Stimulates uterine contractions. Reduces hemorrhage the way oxytocin does. Date fruit contains saturated and unsaturated fatty acids such as oleic, linoleic, and linolenic acids, which are involved in saving and supplying energy and construction of prostaglandins. In addition, serotonin, tannin, and calcium in date fruit contribute to the contraction of smooth muscles of the uterus. Date fruit also has a laxative effect, which stimulates uterine contractions. Six dates per day is the magic number--provided that you re eating smaller deglet noor dates. Deglet noor dates are about 1 inch long. Medjool dates can be up to 2 inches long. If you re eating medjool dates, you only need about 3 dates to reach the 75 grams recommended in the studies. Not sure which type of date you have in your refrigerator? It s probably a deglet noor. How to Eat Dates During Dates are a healthy and delicious snack, so how can you add them to your diet? Add dates during in this awesome oatmeal recipe. Add dates to replace sugar in your favorite recipe or to aftab your homemade almond milk. Use dates and nuts to make an easy pie crust in the food sanitarian. Add soaked dates to homemade nut butter for a sweet treat. Add dates to aftab homemade salad dressing. Add dates during easily with these yummy (paleo friendly) bars made from dates. What Is Red Raspberry [place]uttig Tea? Red raspberry leaf tea comes from the leaves of the red raspberry plant. This herbal tea has been used for centuries to support respiratory, digestive and uterine health, particularly during and childbearing years. While usually known as a female herb, red raspberry leaf tea can also helpsupport the prostate and various stomach ailments in children. How It Can Help and Red raspberry leaf tea can help to make labor faster and reduce complications and interventions during . One study found that women who consumed RRL tea regularly are less likely to go overdue or give prematurely. These women may also be less likely to receive an artificial rupture of their membranes or require a section, forceps, or vacuum than the women in the control group. Red raspberry leaf has many other benefits to , , and too. How Much Red Raspberry Hutt[place] Tea to Drink? With your doctor or licensed social worker s approval, start with 1 cup of red raspberry leaf tea per day startingin the second trimester. Watch for any uterine cramping or other reactions. If you don t experienceany, you can talk to your healthcare provider about increasing to 2 cups per day. Again, watch for any uterine cramping. If you notice any, cut back on your dosage for two weeks and try again. Keep in mind, some moms have irritable uteruses and can only drink red raspberry leaf tea once theyreach their due date because of uterine cramping. Is Red Raspberry Huttig Tea the Same as Raspberry Huttig Tea? How About Plain Old Raspberry Tea? Sometimes. You really need to look at the ingredients to be sure. Note that there is no difference between red raspberry leaf and raspberry leaf. [employer] or [employer] Raspberry Huttig Tea are two good brands. The red raspberry leaf teas that we recommend are 100% red raspberry leaf. Other teas labeled as raspberry are often a blend of rosehips, hibiscus, raspberry leaves, and raspberry flavor. So they maynot be as effective. The teas to avoid are raspberry-flavored herbal teas, which may have ingredients like hibiscus, alejandra hips, apples, elderberries, natural and artificial raspberry flavors. Teas like this don t containraspberry leaf at all and thus won t offer any of the potential benefits of RRLT outlined in this article. The [employer] www.Speek I named this 'circuit' after my friend Elizabet Farah, who shared and discussed it with me when I was working with a client whose labor seemed to be stalled out and no longer progressing... This circuit is useful to help get the baby lined up, ideally, in the Left Occiput Anterior (SIMON) Position, both before labor begins and when some corrections need to be done during labor. Prenatally, this position set can help to rotate a baby. As a natural method of induction, this can help get things going if baby just needed a gentle nudge of position to set things off. To the best of my knowledge, this group of positions will not hurt a baby that is already lined up correctly. - Chrystal Holland Before you Begin..... This circuit takes at least 90 minutes to complete so clear your schedule and make mental preparations so you can relax in your environment. The second step requires a lot of pillows so gather them up before beginning Before starting, you should empty your bladder! Have a nice drink nearby, and make sure it has a straw! If you are having contractions, this circuit should bedone through contractions, try not to change positions between steps Step One: Open-knee Chest Stay in this position for 30 minutes, start in cat/cow, then drop your chest as low as you can to the bed or the floor and your bottom as high as you can. Knees should be fairly wide apart, and the angle between the torso/thighs should be wider than 90 degrees. Wiggle around, prop with lots of pillows and use this time to get totally relaxed.This position allows the baby to scoot out of the pelvis a bit and gives them room to rotate, shift their head position, etc. If the person finds it helpful,careful positioning with a rebozo under the belly, with gentle tension from a support person behindcan help maintain this position for the full 30minutes. Step Two: Exaggerated Left Side Lying Roll to your left side, bringing your top leg as high as possible and keeping your bottom leg straight. Roll forward as much as possible,again using a lot of pillows. Sink into the bed and relax somemore. If you fall asleep, that's totally okay and you can stay there! If not, stay here for at least another half an hour. Try and get your top right leg up towards your head and get as rolled over onto your belly as much as possible. If you repeat the circuit during labor, try alternating left and right sides. We know the photo the left is actually right side... just flip the image in your head. Step Three: Moving and Lungnisha Lunge, walk stairs facing sideways, 2 at a time, (have a carpenter railcar downstairs of you!), take a walk outside with one foot on the curb and the other on the street, sit on a ball and hula- anything that's upright and putting your pelvis in open, asymmetrical positions. Spend at least 30 minutes doing this one as well to give your baby a chance to move down. If you are lunging or stair or curb walking, you should lunge/walk/go up stairs in the direction that feels better to you. The núñez with the lunge is that the toes of the higher leg and mom's belly button should be at right angles. Do not lunge over your knee, that closes the pelvis. Elizabet Farah: Circuit Creator - www.[employer] [email or web address].RIWI Chrystal Holland CD, BDT (GULSHAN), LCCE, FACCE: Supporting Content - www.[email or web address]a Mery Faust: Photography - www.Mobile Security SoftwareaverbrowFiPath Sara Verde CD/CDT (LETITIA): Print and Psychologist Experimental - www.[employer] Circuit Masterminds [employer] www.[email or web address].RIWI SEQUENTIAL SCREENINGS The [facility] offers sequential screenings for women who are interested in screenings for chromosomal abnormalities and certain defects during a . The sequential screen combinesultrasound and blood tests to determine the risk of chromosomal abnormalities, including Down's Syndrome (Trisomy 21) and Trisomy 18, as well as open neural tube defects including spina bifida. Ultrasound examination is performed between 11 weeks and 13 weeks gestational age. Blood tests are drawn after the ultrasound and again later in the between 15 and 21 weeks gestational age. Please let your physician know if you are interested in this testing. It will require an appointment withour crown and bridge dental lab technician. This is not an ultrasound performed by a physician in our office during a routine visit. SIGNS AND SYMPTOMS OF LABOR 1. Contractions every 10 minutes or more often 2. Clear, pink, or brownish fluid (water) leaking from vagina 3. Feeling that baby is pushing down, pressure 4. Low, dull backache 5. Cramps that feel like a period 6. Cramps with or without diarrhea If you notice any of the above symptoms, contact our office at [phone] and ask to speak with anurse. After hours, you can call doctors registry at [phone] OR call [facility] at [phone] ask to have the doctor educational consultant paged. If you consider this an emergency, dial or go to your nearest emergency department. NEED HELP? Are you dealing with a violent or abusive relationship? Are you a victim of rape or sexual assult? Call [facility] ([place]) 24 hour Crisis Hotline: 663.719.1016 or 031-114-1327. MANUAL Your Guide to a Healthy manual is now on-line. Visit [email or web address] to download your free copy documented in this encounterSt. [facility] Hospital07-[facility]24 Note Indication Evaluation of growth placental abnormality Impression REMOTE READ - Single, live, intrauterine . - The biometry is consistent with the assigned gestational dating. - The EFW is 2827 g, at the 51%. AC is at the 84%. - Amniotic fluid volume is normal amount with an MVP of 7 cm and DAVID of 22.8 cm. - The placenta is posterior, fundal. - No malformations visualized on a limited survey as detailed below. Recommendations Additional follow-up as clinically indicated. Maternal Assessment Height 155 cm Height (ft) 5 ft Height (in) 1 in Physical Exam Initial weight (lb) 119 lb Initial BMI 22.50 kg/m Maternal assessment other: 5 Para 3 Method Transabdominal ultrasound examination Partida . Number of fetuses: 1 Dating LMP on: 03/23/2023 GA by LMP 36 w + 0 d JAGDEEP by LMP: 12/28/2023 GA by prior assessment 36 w + 0 d JAGDEEP by prior assessment: 12/28/2023 Ultrasound examination on: 11/30/2023 GA by U/S based upon: AC, BPD, Femur, HC GA by U/S 35 w + 5 d JAGDEEP by U/S: 12/30/2023 Assigned: based on stated JAGDEEP, selected on 11/06/2023 Assigned GA 36 w + 0 d Assigned JAGDEEP: 12/28/2023 General Evaluation Cardiac activity present. FHR 126 bpm. movements: present. Presentation: cephalic Placenta: Placental site: posterior, fundal. Circumvallate Umbilical cord: Cord vessels: 3 vessel cord Amniotic fluid: Amount of AF: normal amount. MVP 7.0 cm. DAVID 22.8 cm. Q1 6.0 cm, Q2 3.8 cm, Q3 6.0 cm, Q4 7.0 cm Growth Overview Exam date GA BPD (mm) HC (mm) AC (mm) FL (mm) HL (mm) EFW (g) 08/10/2023 20w 0d 47.6 67% 181.4 67% 158.4 76% 31.1 51% 30.7 61% 350 67% 11/06/2023 32w 4d 86.4 94% 315.3 82% 296.5 79% 60.2 26% 2144 60% 11/30/2023 36w 0d 87.8 43% 333 71% 330.4 84% 64 5% 2827 51% Biometry Standard BPD 87.8 mm 35w 3d 43% Hadlock OFD 119.6 mm -/- 84% Nicolaides HC 333.0 mm 37w 4d 71% Elizabeth AC 330.4 mm 37w 0d 84% Hadlock Femur 64.0 mm 32w 6d 5% Elizabeth EFW 2,827 g 36w 0d 51% Hadlock EFW (lb) 6 lb EFW (oz) 4 oz EFW by: Hadlock (HC-AC-FL) Extended Cripple Chaser 6.0 mm Extremities / Bony Struc FL / HC 0.19 Other Structures FHR 126 bpm Anatomy Lateral ventricles: normal Cavum septi pellucidi: normal Cerebellum: normal Cisterna magna: normal 4-chamber view: normal RVOT view: normal LVOT view: normal 3-vessel view: normal Heart / Thorax Situs: situs solitus (normal) Diaphragm: normal Stomach: normal Kidneys: normal Bladder: normal sex: female Wants to know sex: yes Performed By: Darline Shaw RDMS, RVT Read By: Darlene Arceo M.D.MATERNAL [id number] Miscellaneous Notes* Quick Notes - Hilda Nixon MD - 11/30/2023 1:42 PM EDT S: Heidy Ordoñez is a 33 year old female who presents at 12/28/2023, by Last Menstrual Period for a routine visit. Denies headache, visual changes, chest pain, shortness of breath, vaginal bleeding, leakage of fluid, or dysuria. Feeling well, no complaints. Good movement, No contractions O: See flow sheet Gen: No apparent distress Abd: Gravid, nontender EFW -52% DAVID 23 ASSESSMENT/PLAN: 1. 36 weeks gestation of - ICD9: V22.2, ICD10: Z3A.36 (primary diagnosis) - URINE OB DIP B/O - ROUTINE, GROUP B STREP PCR 2. Supervision of other high risk pregnancies, third trimester - ICD9: V23.89, ICD10: O09.893 - URINE OB DIP B/O - ROUTINE, GROUP B STREP PCR Hilda Nixon MD documented in this encounterSt. [facility] Hospital07-[facility]-2024 Progress note* Quick Notes - Hilda Nixon MD - 11/30/2023 1:42 PM EDT S: Heidy Ordoñez is a 33 year old female who presents at 12/28/2023, by Last Menstrual Period for a routine visit. Denies headache, visual changes, chest pain, shortness of breath, vaginal bleeding, leakage of fluid, or dysuria. Feeling well, no complaints. Good movement, No contractions O: See flow sheet Gen: No apparent distress Abd: Gravid, nontender EFW -52% DAVID 23 ASSESSMENT/PLAN: 1. 36 weeks gestation of - ICD9: V22.2, ICD10: Z3A.36 (primary diagnosis) - URINE OB DIP B/O - ROUTINE, GROUP B STREP PCR 2. Supervision of other high risk pregnancies, third trimester - ICD9: V23.89, ICD10: O09.893 - URINE OB DIP B/O - ROUTINE, GROUP B STREP PCR Hilda Nixon MD [facility] Instructions* Patient Instructions* Norah Magana MA - 11/30/2023 1:17 PM EDT SEQUENTIAL SCREENINGS The [facility] offers sequential screenings for women who are interested in screenings for chromosomal abnormalities and certain defects during a . The sequential screen combinesultrasound and blood tests to determine the risk of chromosomal abnormalities, including Down's Syndrome (Trisomy 21) and Trisomy 18, as well as open neural tube defects including spina bifida. Ultrasound examination is performed between 11 weeks and 13 weeks gestational age. Blood tests are drawn after the ultrasound and again later in the between 15 and 21 weeks gestational age. Please let your physician know if you are interested in this testing. It will require an appointment withour crown and bridge dental lab technician. This is not an ultrasound performed by a physician in our office during a routine visit. SIGNS AND SYMPTOMS OF LABOR 1. Contractions every 10 minutes or more often 2. Clear, pink, or brownish fluid (water) leaking from vagina 3. Feeling that baby is pushing down, pressure 4. Low, dull backache 5. Cramps that feel like a period 6. Cramps with or without diarrhea If you notice any of the above symptoms, contact our office at [phone] and ask to speak with anurse. After hours, you can call doctors registry at [phone] OR call [facility] at [phone] ask to have the doctor educational consultant paged. If you consider this an emergency, dial 9-1-7 or go to your nearest emergency department. NEED HELP? Are you dealing with a violent or abusive relationship? Are you a victim of rape or sexual assult? Call [facility] ([place]) 24 hour Crisis Hotline: 190.520.6688 or 783-912-7343. MANUAL Your Guide to a Healthy manual is now on-line. Visit [email or web address] to download your free copy documented in this encounterSt. [facility] Hospital07-[facility]-2024 Telephone encounter Note * Telephone Encounter - Hilda Arreola RN - 11/30/2023 12:26 PM EDT Patient has US today. Please file pending order. Thank you. Hilda Arreola RN [facility] Miscellaneous Notes* Telephone Encounter - Hilda Arreola RN - 11/30/2023 12:26 PM EDT Patient has US today. Please file pending order. Thank you. Hilda Arreola RN documented in this encounterSt. Elizabeth Hospital07-12-2024 Progress note* Quick Notes - Adina Rivera APRN.CNM - 11/17/2023 11:36 AM EDT MAULIK-S: Heidy Ordoñez is a 33 year old female who presents at 34w1d with JAGDEEP:12/28/2023, by Last Menstrual Period for a routine visit. Denies headache, visual changes, chest pain, shortness of breath, vaginal bleeding, leakage of fluid, or dysuria. Feeling well, no complaints. O: See flow sheet Gen: No apparent distress Abd: Gravid, nontender ASSESSMENT/PLAN: 1. Supervision of other high risk pregnancies, third trimester -GBS next visit -Reviewed RR tea, dates, and positional changes -Would like waterbirth and discussed process. Will sign consent next visit. 2. 34 weeks gestation of 3. 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 -PTL precautions reviewed and when to call -RTO in in 2 weeks Adina Rivera APRN.CNM [facility] Miscellaneous Notes* Quick Notes - Adina Rivera APRN.CNM - 11/17/2023 11:36 AM EDT MAULIK-S: Heidy Ordoñez is a 33 year old female who presents at 34w1d with JAGDEEP:12/28/2023, by Last Menstrual Period for a routine visit. Denies headache, visual changes, chest pain, shortness of breath, vaginal bleeding, leakage of fluid, or dysuria. Feeling well, no complaints. O: See flow sheet Gen: No apparent distress Abd: Gravid, nontender ASSESSMENT/PLAN: 1. Supervision of other high risk pregnancies, third trimester -GBS next visit -Reviewed RR tea, dates, and positional changes -Would like waterbirth and discussed process. Will sign consent next visit. 2. 34 weeks gestation of 3. 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 -PTL precautions reviewed and when to call -RTO in in 2 weeks Adina Rivera APRN.CNM documented in this encounter[facility] Instructions* Patient Instructions* Adina Rivera APRN.CNM - 11/17/2023 11:27 AM EDT Images from the original note were not included. Preparing for labor: Eat dates to promote spontaneous labor! Has an oxytocin-like effect on the body, leading to increased sensitivity of the uterus. Stimulates uterine contractions. Reduces hemorrhage the way oxytocin does. Date fruit contains saturated and unsaturated fatty acids such as oleic, linoleic, and linolenic acids, which are involved in saving and supplying energy and construction of prostaglandins. In addition, serotonin, tannin, and calcium in date fruit contribute to the contraction of smooth muscles of the uterus. Date fruit also has a laxative effect, which stimulates uterine contractions. Six dates per day is the magic number--provided that you re eating smaller deglet noor dates. Deglet noor dates are about 1 inch long. Medjool dates can be up to 2 inches long. If you re eating medjool dates, you only need about 3 dates to reach the 75 grams recommended in the studies. Not sure which type of date you have in your refrigerator? It s probably a deglet noor. How to Eat Dates During Dates are a healthy and delicious snack, so how can you add them to your diet? Add dates during in this awesome oatmeal recipe. Add dates to replace sugar in your favorite recipe or to aftab your homemade almond milk. Use dates and nuts to make an easy pie crust in the food sanitarian. Add soaked dates to homemade nut butter for a sweet treat. Add dates to aftab homemade salad dressing. Add dates during easily with these yummy (paleo friendly) bars made from dates. What Is Red Raspberry Huttig Tea? Red raspberry leaf tea comes from the leaves of the red raspberry plant. This herbal tea has been used for centuries to support respiratory, digestive and uterine health, particularly during and childbearing years. While usually known as a female herb, red raspberry leaf tea can also helpsupport the prostate and various stomach ailments in children. How It Can Help and Red raspberry leaf tea can help to make labor faster and reduce complications and interventions during . One study found that women who consumed RRL tea regularly are less likely to go overdue or give prematurely. These women may also be less likely to receive an artificial rupture of their membranes or require a section, forceps, or vacuum than the women in the control group. Red raspberry leaf has many other benefits to , , and too. How Much Red Raspberry Huttig Tea to Drink? With your doctor or licensed social worker s approval, start with 1 cup of red raspberry leaf tea per day startingin the second trimester. Watch for any uterine cramping or other reactions. If you don t experienceany, you can talk to your healthcare provider about increasing to 2 cups per day. Again, watch for any uterine cramping. If you notice any, cut back on your dosage for two weeks and try again. Keep in mind, some moms have irritable uteruses and can only drink red raspberry leaf tea once theyreach their due date because of uterine cramping. Is Red Raspberry Huttig Tea the Same as Raspberry Huttig Tea? How About Plain Old Raspberry Tea? Sometimes. You really need to look at the ingredients to be sure. Note that there is no difference between red raspberry leaf and raspberry leaf. [employer] or [employer] Raspberry Huttig Tea are two good brands. The red raspberry leaf teas that we recommend are 100% red raspberry leaf. Other teas labeled as raspberry are often a blend of rosehips, hibiscus, raspberry leaves, and raspberry flavor. So they maynot be as effective. The teas to avoid are raspberry-flavored herbal teas, which may have ingredients like hibiscus, alejandra hips, apples, elderberries, natural and artificial raspberry flavors. Teas like this don t containraspberry leaf at all and thus won t offer any of the potential benefits of RRLT outlined in this article. The [employer] www.Speek I named this 'circuit' after my friend Elizabet Farah, who shared and discussed it with me when I was working with a client whose labor seemed to be stalled out and no longer progressing... This circuit is useful to help get the baby lined up, ideally, in the Left Occiput Anterior (SIMON) Position, both before labor begins and when some corrections need to be done during labor. Prenatally, this position set can help to rotate a baby. As a natural method of induction, this can help get things going if baby just needed a gentle nudge of position to set things off. To the best of my knowledge, this group of positions will not hurt a baby that is already lined up correctly. - Chrystal Holland Before you Begin..... This circuit takes at least 90 minutes to complete so clear your schedule and make mental preparations so you can relax in your environment. The second step requires a lot of pillows so gather them up before beginning Before starting, you should empty your bladder! Have a nice drink nearby, and make sure it has a straw! If you are having contractions, this circuit should bedone through contractions, try not to change positions between steps Step One: Open-knee Chest Stay in this position for 30 minutes, start in cat/cow, then drop your chest as low as you can to the bed or the floor and your bottom as high as you can. Knees should be fairly wide apart, and the angle between the torso/thighs should be wider than 90 degrees. Wiggle around, prop with lots of pillows and use this time to get totally relaxed.This position allows the baby to scoot out of the pelvis a bit and gives them room to rotate, shift their head position, etc. If the person finds it helpful,careful positioning with a rebozo under the belly, with gentle tension from a support person behindcan help maintain this position for the full 30minutes. Step Two: Exaggerated Left Side Lying Roll to your left side, bringing your top leg as high as possible and keeping your bottom leg straight. Roll forward as much as possible,again using a lot of pillows. Sink into the bed and relax somemore. If you fall asleep, that's totally okay and you can stay there! If not, stay here for at least another half an hour. Try and get your top right leg up towards your head and get as rolled over onto your belly as much as possible. If you repeat the circuit during labor, try alternating left and right sides. We know the photo the left is actually right side... just flip the image in your head. Step Three: Moving and Lunges Lunge, walk stairs facing sideways, 2 at a time, (have a carpenter railcar downstairs of you!), take a walk outside with one foot on the curb and the other on the street, sit on a ball and hula- anything that's upright and putting your pelvis in open, asymmetrical positions. Spend at least 30 minutes doing this one as well to give your baby a chance to move down. If you are lunging or stair or curb walking, you should lunge/walk/go up stairs in the direction that feels better to you. The núñez with the lunge is that the toes of the higher leg and mom's belly button should be at right angles. Do not lunge over your knee, that closes the pelvis. Elizabet Farah: Circuit Creator - www.[email or web address] Chrystal Holland CD, BDT (GULSHAN), LCCE, FACCE: Supporting Content - www.Ort[employer] Mery Faust: Photography - www.Birthday [email or web address].RIWI Sara Verde CD/CDT (LETITIA): Print and Psychologist Experimental - www.[employer] Master[employer] [email or web address] What is my perineum? Your perineum is the area between your vaginal opening and your rectum. This area stretches when you give , and sometimes the perineum or vagina will tear as your baby is being born. If your health care provider cuts an episiotomy during your , it is this area that is cut. You may need stitches after your baby is born if you have a tear or have an episiotomy. How often do perineal tears occur? About 4 to 8 out of every 10 women who give vaginally will have some tear in their perineum. About two?thirds of these women will need some stitches. Is an episiotomy necessary? An episiotomy is not necessary for most women. Although they were common before the , they arerarely done today. However, sometimes your health care provider may recommend an episiotomy just asyour baby is being born. For example, an episiotomy can help if your baby needs to be born very quickly. You can ask your health care provider to talk with you about episiotomy during a visit. Can my health care provider do anything to help me avoid a tear? There are many ways that your health care provider can help to reduce your chance of tearing. For example, your provider may: Apply a warm compress to the perineum just before the baby comes out Recommend specific positions for you to be in as you push Provide gentle downward pressure on the baby's head as your baby is coming out Ask that you push your baby out between contractions Avoid the use of forceps or a vacuum to help your baby be born Can I do anything before the to help me avoid a tear? Preventing a perineal tear that occurs during has been the subject of many research studies. Several studies have found that perineal massage during the last weeks of can reduce tearing at for women giving for the first time. This massage--using 2 fingers to stretch yourperineal tissues--is performed by you, in your home, once or twice a week, for the last 4 to 6 weeks of your . The next page of this handout tells how to do this massage. For every 15 women who do perineal massage, one woman will avoid an episiotomy and perineal tearing that needs stitches. While you massage, you can practice relaxing the muscles in your perineum. This can help you prepare for the stretching, burning feeling you may have when your baby's head is born. Relaxing this area during can help prevent tearing. Does perineal massage in help all women? Massage seems to work better for some women than others. Women having their first baby, women who are 30 years or older, and women who have had episiotomies before have fewer tears and less severe tears when perineal massage is done during the last weeks of . Can my partner help? Yes! Many women find that it is easier to have their partners do this massage. See the instructionsfor perineal massage on the next page for more information. Are there any risks to perineal massage during ? Not that we know of. It is free. It doesn't hurt. It is easy to do. And most women don't mind doingit. However, you should not stretch the perineum until it hurts or massage too often, which can hurt the skin in that area. Do not do perineal massage more than once or twice a week. Women who do it more often do not have a lower risk of perineal tearing. Check with your health care provider beforebeginning perineal massage. And, if you believe your amniotic fluid (bag of rojas) is leaking, check with your health care provider before putting anything in your vagina. Instructions for Perineal Massage During Wash your hands well, and make sure your fingernails are short. Relax in a private place where you can rest with your legs open and your knees bent. Some women like to lean on pillows for back support. Lubricate your thumbs and the perineal tissues. Use a lubricant such as vitamin E oil, coconut oil,almond oil, or any vegetable oil used for cooking--like olive oil. You may also try a water?solublejelly, such as K?Y jelly, or your body's natural vaginal lubricant. Do not use baby oil, mineral oil, or petroleum jelly (Vaseline). Place your thumbs about 1 to 1.5 inches inside your vagina (see Figure 1). Press down (toward the anus) and to the sides until you feel a slight burning, stretching sensation. Hold that stretched position for 1 or 2 minutes. With your thumbs, slowly massage the lower half of the vagina using a U?shaped movement for 2 to 3 minutes at most. Concentrate on relaxing your muscles. This is a good time to practice slow, deep breathing techniques. Partners: If your partner is doing the perineal massage, follow the same basic instructions above. However, your partner should use his or her index fingers to do the massage (instead of thumbs). Thesame side?to?side, U?shaped, downward pressure method should be used. Good communication is important--be sure to tell your partner if you have too much pain or burning! Figure 1 1 Perineal Massage Adryid Grade Level: 7.2 Approved May 2015. This handout replaces Perineal Massage in published in Volume 50, Issue 1, May/Jun 2004 SIGNS AND SYMPTOMS OF LABOR 1. Contractions every 10 minutes or more often 2. Clear, pink, or brownish fluid (water) leaking from vagina 3. Feeling that baby is pushing down, pressure 4. Low, dull backache 5. Cramps that feel like a period 6. Cramps with or without diarrhea If you notice any of the above symptoms, contact our office at [phone] and ask to speak with anurse. After hours, you can call doctors registry at [phone] OR call [facility] at [phone] ask to have the doctor educational consultant paged. If you consider this an emergency, dial 8-8-3 or go to your nearest emergency department. NEED HELP? Are you dealing with a violent or abusive relationship? Are you a victim of rape or sexual assult? Call [facility] ([place]) 24 hour Crisis Hotline: 758.836.4688 or 838-977-4571. MANUAL Your Guide to a Healthy manual is now on-line. Visit [email or web address] to download your free copy documented in [facility] encounterSt[facility] Note Indication Evaluation of growth; placental abnormality Impression REMOTE READ - Single, live, intrauterine . - The biometry is consistent with the assigned gestational dating. - The EFW is 2144 g, at the 60%. AC is at the 79%. - Amniotic fluid volume is normal amount with an MVP of 4.9 cm and DAVID of 17.4 cm. - The placenta is posterior, fundal. - No malformations visualized on a limited survey as detailed below. Recommendations Additional follow-up as clinically indicated. Maternal Assessment Height 155 cm Height (ft) 5 ft Height (in) 1 in Physical Exam Initial weight (lb) 119 lb Initial BMI 22.50 kg/m Maternal assessment other: 5 Para 3 Method Transabdominal ultrasound examination Partida . Number of fetuses: 1 Dating LMP on: 03/23/2023 GA by LMP 32 w + 4 d JAGDEEP by LMP: 12/28/2023 GA by prior assessment 32 w + 4 d JAGDEEP by prior assessment: 12/28/2023 Ultrasound examination on: 11/06/2023 GA by U/S based upon: AC, BPD, Femur, HC GA by U/S 33 w + 4 d JAGDEEP by U/S: 12/21/2023 Assigned: based on stated JAGDEEP, selected on 11/06/2023 Assigned GA 32 w + 4 d Assigned JAGDEEP: 12/28/2023 General Evaluation Cardiac activity present. FHR 138 bpm. movements: present. Presentation: cephalic Placenta: Placental site: posterior, fundal. Umbilical cord: Cord vessels: 3 vessel cord Amniotic fluid: Amount of AF: normal amount. MVP 4.9 cm. DAVID 17.4 cm. Q1 4.8 cm, Q2 3.7 cm, Q3 4.0 cm, Q4 4.9 cm Growth Overview Exam date GA BPD (mm) HC (mm) AC (mm) FL (mm) HL (mm) EFW (g) 08/10/2023 20w 0d 47.6 67% 181.4 67% 158.4 76% 31.1 51% 30.7 61% 350 67% 11/06/2023 32w 4d 86.4 94% 315.3 82% 296.5 79% 60.2 26% 2144 60% Biometry Standard BPD 86.4 mm 34w 6d 94% Hadlock OFD 111.4 mm 33w 5d 77% Nicolaides HC 315.3 mm 34w 3d 82% Elizabeth AC 296.5 mm 33w 4d 79% Hadlock Femur 60.2 mm 31w 2d 26% Elizabeth EFW 2,144 g 32w 6d 60% Hadlock EFW (lb) 4 lb EFW (oz) 12 oz EFW by: Hadlock (HC-AC-FL) Extended Cripple Chaser 4.8 mm Extremities / Bony Struc FL / HC 0.19 Other Structures FHR 138 bpm Anatomy Lateral ventricles: normal Midline falx: normal Cavum septi pellucidi: normal Cerebellum: normal Cisterna magna: normal 4-chamber view: suboptimal RVOT view: normal LVOT view: suboptimal 3-vessel view: normal Heart / Thorax Situs: situs solitus (normal) Diaphragm: normal Stomach: normal Kidneys: normal Bladder: normal sex: female Wants to know sex: yes Performed By: Darline Shaw RDMS, RVT Read By: Samantha Noriega M.D.MATERNAL [id number] Progress note* Quick Notes - Maddy Simon MD - 11/06/2023 11:43 AM EDT DM-Pt doing well. Denies vaginal Bleeding, Leaking fluid, or regular Contractions. Pt reports good movement Physical Exam: Gen: female in no apparent distress Abd: soft, Gravid. Non tender to palpation. See flow sheet A/P: @ 32.4 weeks 1) growth us today- pending 2) considering waterbirth 3) RTO 2 weeks Maddy Christianson MD [facility] Miscellaneous Notes* Quick Notes - Maddy Simon MD - 11/06/2023 11:43 AM EDT DM-Pt doing well. Denies vaginal Bleeding, Leaking fluid, or regular Contractions. Pt reports good movement Physical Exam: Gen: female in no apparent distress Abd: soft, Gravid. Non tender to palpation. See flow sheet A/P: @ 32.4 weeks 1) growth us today- pending 2) considering waterbirth 3) RTO 2 weeks Maddy Christianson MD documented in this encounterSt. [facility]07[facility] Instructions* Patient Instructions* Elli Lyle MA - 11/06/2023 10:09 AM EDT SEQUENTIAL SCREENINGS The [facility] offers sequential screenings for women who are interested in screenings for chromosomal abnormalities and certain defects during a . The sequential screen combinesultrasound and blood tests to determine the risk of chromosomal abnormalities, including Down's Syndrome (Trisomy 21) and Trisomy 18, as well as open neural tube defects including spina bifida. Ultrasound examination is performed between 11 weeks and 13 weeks gestational age. Blood tests are drawn after the ultrasound and again later in the between 15 and 21 weeks gestational age. Please let your physician know if you are interested in this testing. It will require an appointment withour crown and bridge dental lab technician. This is not an ultrasound performed by a physician in our office during a routine visit. SIGNS AND SYMPTOMS OF LABOR 1. Contractions every 10 minutes or more often 2. Clear, pink, or brownish fluid (water) leaking from vagina 3. Feeling that baby is pushing down, pressure 4. Low, dull backache 5. Cramps that feel like a period 6. Cramps with or without diarrhea If you notice any of the above symptoms, contact our office at [phone] and ask to speak with anurse. After hours, you can call doctors registry at [phone] OR call [facility] at [phone] ask to have the doctor educational consultant paged. If you consider this an emergency, dial 9-1-4 or go to your nearest emergency department. NEED HELP? Are you dealing with a violent or abusive relationship? Are you a victim of rape or sexual assult? Call [facility] ([place]) 24 hour Crisis Hotline: 129.130.4640 or 066-552-8094. MANUAL Your Guide to a Healthy manual is now on-line. Visit [email or web address] to download your free copy documented in this encounterSt. [facility]06[facility] Telephone encounter Note * Telephone Encounter - Hilda Graham RN - 10/20/2023 9:32 AM EDT 3rd risk assessment form submitted 10/20/2023. Hilda Graham RN [facility] Miscellaneous Notes* Telephone Encounter - Hilda Graham RN - 10/20/2023 9:32 AM EDT 3rd risk assessment form submitted 10/20/2023. Hilda Graham RN documented in this encounterSt. [facility] Hospital06-13-2024 Progress note* Quick Notes - Cheri Mercedes APRN.CNM - 10/19/2023 4:30 PM EDT S: Heidy Ordoñez is a 33 year old female who presents at 30 weeks gestation for a routine visit. Positive movement. Occasional danica conteh with a lot of movements. Currently moving and working a lot on house. Denies headache, visual changes, chest pain, shortness of breath, vaginal bleeding, leakage of fluid, or dysuria. Feeling good overall. O: See flow sheet Gen: No apparent distress Abd: Gravid, non tender ASSESSMENT/PLAN: 1. Encounter for supervision of other normal in third trimester - ICD9: V22.1, ICD10: Z34.83 (primary diagnosis) 2. 30 weeks gestation of - ICD9: V22.2, ICD10: Z3A.30 3. Circumvallate placenta- Growth US at 32 weeks - Patient may be interested in laboring or even delivery in tub- will reevaluate after next ultrasound that is looking at placenta - Desires unmedicated labor and delivery - PTL precautions reviewed and when to notify provider - RTO 2 weeks Cheri Mercedes APRN.CNM [facility] Miscellaneous Notes* Quick Notes - Cheri Mercedes APRN.CNM - 10/19/2023 4:30 PM EDT S: Heidy Ordoñez is a 33 year old female who presents at 30 weeks gestation for a routine visit. Positive movement. Occasional danica conteh with a lot of movements. Currently moving and working a lot on house. Denies headache, visual changes, chest pain, shortness of breath, vaginal bleeding, leakage of fluid, or dysuria. Feeling good overall. O: See flow sheet Gen: No apparent distress Abd: Gravid, non tender ASSESSMENT/PLAN: 1. Encounter for supervision of other normal in third trimester - ICD9: V22.1, ICD10: Z34.83 (primary diagnosis) 2. 30 weeks gestation of - ICD9: V22.2, ICD10: Z3A.30 3. Circumvallate placenta- Growth US at 32 weeks - Patient may be interested in laboring or even delivery in tub- will reevaluate after next ultrasound that is looking at placenta - Desires unmedicated labor and delivery - PTL precautions reviewed and when to notify provider - RTO 2 weeks Cheri Mercedes APRN.CNM documented in this encounterSt. [facility]06-[facility] Instructions* Patient Instructions* Dru Polanco MA - 10/19/2023 4:24 PM EDT SEQUENTIAL SCREENINGS The [facility] offers sequential screenings for women who are interested in screenings for chromosomal abnormalities and certain defects during a . The sequential screen combinesultrasound and blood tests to determine the risk of chromosomal abnormalities, including Down's Syndrome (Trisomy 21) and Trisomy 18, as well as open neural tube defects including spina bifida. Ultrasound examination is performed between 11 weeks and 13 weeks gestational age. Blood tests are drawn after the ultrasound and again later in the between 15 and 21 weeks gestational age. Please let your physician know if you are interested in this testing. It will require an appointment withour crown and bridge dental lab technician. This is not an ultrasound performed by a physician in our office during a routine visit. SIGNS AND SYMPTOMS OF LABOR 1. Contractions every 10 minutes or more often 2. Clear, pink, or brownish fluid (water) leaking from vagina 3. Feeling that baby is pushing down, pressure 4. Low, dull backache 5. Cramps that feel like a period 6. Cramps with or without diarrhea If you notice any of the above symptoms, contact our office at [phone] and ask to speak with anurse. After hours, you can call doctors registry at [phone] OR call [facility] at [phone] ask to have the doctor educational consultant paged. If you consider this an emergency, dial 0-7-0 or go to your nearest emergency department. NEED HELP? Are you dealing with a violent or abusive relationship? Are you a victim of rape or sexual assult? Call [facility] ([place]) 24 hour Crisis Hotline: 891.836.2470 or 362-476-8425. MANUAL Your Guide to a Healthy manual is now on-line. Visit [email or web address] to download your free copy documented in this encounterSt. [facility] Hospital05[facility] Progress note* Quick Notes - Michelle Ho MD - 10/05/2023 11:45 AM EDT SW- pt doing well. No pain, vb, lof. Good FM PE: Gen- NAD, well appearing Abd- Soft, gravid, NT, S=D See flowsheet A/p 28 wk gestation - Declines Tdap - Rh positive - 28 wk labs today - Depression screen completed - 32 wk growth US ordered - RTO [address] [facility] Work Phone: 1(358) 215-377605-30-2024 Miscellaneous Notes* Quick Notes - Michelle Ho MD - 10/05/2023 11:45 AM EDT SW- pt doing well. No pain, vb, lof. Good FM PE: Gen- NAD, well appearing Abd- Soft, gravid, NT, S=D See flowsheet A/p 28 wk gestation - Declines Tdap - Rh positive - 28 wk labs today - Depression screen completed - 32 wk growth US ordered - RTO 2 wks Michelle Ho DO documented in this encounterSt. [facility] Hospital05-30-2024 Instructions* Patient Instructions* Norah Magana MA - 10/05/2023 11:19 AM EDT SEQUENTIAL SCREENINGS The [facility] offers sequential screenings for women who are interested in screenings for chromosomal abnormalities and certain defects during a . The sequential screen combinesultrasound and blood tests to determine the risk of chromosomal abnormalities, including Down's Syndrome (Trisomy 21) and Trisomy 18, as well as open neural tube defects including spina bifida. Ultrasound examination is performed between 11 weeks and 13 weeks gestational age. Blood tests are drawn after the ultrasound and again later in the between 15 and 21 weeks gestational age. Please let your physician know if you are interested in this testing. It will require an appointment withour crown and bridge dental lab technician. This is not an ultrasound performed by a physician in our office during a routine visit. SIGNS AND SYMPTOMS OF LABOR 1. Contractions every 10 minutes or more often 2. Clear, pink, or brownish fluid (water) leaking from vagina 3. Feeling that baby is pushing down, pressure 4. Low, dull backache 5. Cramps that feel like a period 6. Cramps with or without diarrhea If you notice any of the above symptoms, contact our office at [phone] and ask to speak with anurse. After hours, you can call doctors registry at [phone] OR call [facility] at [phone] ask to have the doctor educational consultant paged. If you consider this an emergency, dial 1-8-8 or go to your nearest emergency department. NEED HELP? Are you dealing with a violent or abusive relationship? Are you a victim of rape or sexual assult? Call [facility] ([place]) 24 hour Crisis Hotline: 394.424.3841 or 581-422-8006. MANUAL Your Guide to a Healthy manual is now on-line. Visit [email or web address] to download your free copy documented in this encounterSt. [facility] Hospital05-[facility]24 Telephone encounter Note * Telephone Encounter - Hilda Graham RN - 09/08/2023 11:48 AM EDT 2nd risk assessment form submitted 09/08/2023. Hilda Graham RN [facility]05-03-2024 Miscellaneous Notes* Telephone Encounter - Hilda Graham RN - 09/08/2023 11:48 AM EDT 2nd risk assessment form submitted 09/08/2023. Hilda Graham RN documented in this encounterSt. Elizabeth Hospital05-02-2024 Progress note* Quick Notes - Hilda Nixon MD - 09/07/2023 11:48 AM EDT S: Heidy Ordoñez is a 33 year old female who presents at 12/28/2023, by Last Menstrual Period for a routine visit. Denies headache, visual changes, chest pain, shortness of breath, vaginal bleeding, leakage of fluid, or dysuria. Feeling well, no complaints. O: See flow sheet Gen: No apparent distress Abd: Gravid, nontender ASSESSMENT/PLAN: 1. Encounter for supervision of other normal in second trimester - ICD9: V22.1, ICD10: Z34.82 (primary diagnosis) - COMPLETE BLOOD COUNT AND DIFFERENTIAL - GESTATIONAL GLUCOSE SCREEN, 1-HOUR, 50 GRAM, NON-FASTING - SYPHILIS TOTAL W/REFLEX 2. 24 weeks gestation of - ICD9: V22.2, ICD10: Z3A.24 - COMPLETE BLOOD COUNT AND DIFFERENTIAL - GESTATIONAL GLUCOSE SCREEN, 1-HOUR, 50 GRAM, NON-FASTING - SYPHILIS TOTAL W/REFLEX Hilda Nixon MD [facility] Work Phone: 1(337) 999-806305-02-2024 Miscellaneous Notes* Quick Notes - Hilda Nixon MD - 09/07/2023 11:48 AM EDT S: Heidy Ordoñez is a 33 year old female who presents at 12/28/2023, by Last Menstrual Period for a routine visit. Denies headache, visual changes, chest pain, shortness of breath, vaginal bleeding, leakage of fluid, or dysuria. Feeling well, no complaints. O: See flow sheet Gen: No apparent distress Abd: Gravid, nontender ASSESSMENT/PLAN: 1. Encounter for supervision of other normal in second trimester - ICD9: V22.1, ICD10: Z34.82 (primary diagnosis) - COMPLETE BLOOD COUNT AND DIFFERENTIAL - GESTATIONAL GLUCOSE SCREEN, 1-HOUR, 50 GRAM, NON-FASTING - SYPHILIS TOTAL W/REFLEX 2. 24 weeks gestation of - ICD9: V22.2, ICD10: Z3A.24 - COMPLETE BLOOD COUNT AND DIFFERENTIAL - GESTATIONAL GLUCOSE SCREEN, 1-HOUR, 50 GRAM, NON-FASTING - SYPHILIS TOTAL W/REFLEX Hilda Nixon MD documented in this encounterSt. [facility] Hospital05-02-2024 Instructions* Patient Instructions* Dru Polanco MA - 09/07/2023 10:15 AM EDT SEQUENTIAL SCREENINGS The [facility] offers sequential screenings for women who are interested in screenings for chromosomal abnormalities and certain defects during a . The sequential screen combinesultrasound and blood tests to determine the risk of chromosomal abnormalities, including Down's Syndrome (Trisomy 21) and Trisomy 18, as well as open neural tube defects including spina bifida. Ultrasound examination is performed between 11 weeks and 13 weeks gestational age. Blood tests are drawn after the ultrasound and again later in the between 15 and 21 weeks gestational age. Please let your physician know if you are interested in this testing. It will require an appointment withour crown and bridge dental lab technician. This is not an ultrasound performed by a physician in our office during a routine visit. SIGNS AND SYMPTOMS OF LABOR 1. Contractions every 10 minutes or more often 2. Clear, pink, or brownish fluid (water) leaking from vagina 3. Feeling that baby is pushing down, pressure 4. Low, dull backache 5. Cramps that feel like a period 6. Cramps with or without diarrhea If you notice any of the above symptoms, contact our office at [phone] and ask to speak with anurse. After hours, you can call doctors registry at [phone] OR call [facility] at [phone] ask to have the doctor educational consultant paged. If you consider this an emergency, dial 9-1-1 or go to your nearest emergency department. NEED HELP? Are you dealing with a violent or abusive relationship? Are you a victim of rape or sexual assult? Call [facility] ([place]) 24 hour Crisis Hotline: 126.532.3441 or 210-644-3258. MANUAL Your Guide to a Healthy manual is now on-line. Visit [email or web address] to download your free copy documented in this encounterSt. [facility] Hospital04-04-2024 Miscellaneous Notes* Result Encounter Note - Birgido Arias MD - 08/10/2023 11:46 AM EDT Anatomy ultrasound reviewed. Possible circumvellate placenta, growth scan recommended 32 weeks. . Follow up as clinically indicated. Please place copy in ob chart. Brigido Arias MD documented in this encounterSt. Elizabeth Hospital04-04-2024 Miscellaneous Notes* Quick Notes - Brigido Arias MD - 08/10/2023 10:07 AM EDT RR- VB No. LOF No. CTXS No. Movement: present. Other c/o: No. Medication list reviewed. Physical Exam See Flow Sheet Abd: soft, nontender, gravid Ext: edema: Trace A/P 20w0d Estimated Date of Delivery: 12/28/23 US today f/u in 4 weeks or prn d/w her indigestion vs cholecystitis Brigido Arias M.D. documented in this encounterSt. Elizabeth Hospital04-04-2024 Instructions* Patient Instructions* Meenu Rudolph LPN - 08/10/2023 9:43 AM EDT SEQUENTIAL SCREENINGS The [facility] offers sequential screenings for women who are interested in screenings for chromosomal abnormalities and certain defects during a . The sequential screen combinesultrasound and blood tests to determine the risk of chromosomal abnormalities, including Down's Syndrome (Trisomy 21) and Trisomy 18, as well as open neural tube defects including spina bifida. Ultrasound examination is performed between 11 weeks and 13 weeks gestational age. Blood tests are drawn after the ultrasound and again later in the between 15 and 21 weeks gestational age. Please let your physician know if you are interested in this testing. It will require an appointment withour crown and bridge dental lab technician. This is not an ultrasound performed by a physician in our office during a routine visit. SIGNS AND SYMPTOMS OF LABOR 1. Contractions every 10 minutes or more often 2. Clear, pink, or brownish fluid (water) leaking from vagina 3. Feeling that baby is pushing down, pressure 4. Low, dull backache 5. Cramps that feel like a period 6. Cramps with or without diarrhea If you notice any of the above symptoms, contact our office at [phone] and ask to speak with anurse. After hours, you can call doctors registry at [phone] OR call [facility] at [phone] ask to have the doctor educational consultant paged. If you consider this an emergency, dial 9-1-6 or go to your nearest emergency department. NEED HELP? Are you dealing with a violent or abusive relationship? Are you a victim of rape or sexual assult? Call [facility] ([place]) 24 hour Crisis Hotline: 920.313.7346 or 198-538-7175. MANUAL Your Guide to a Healthy manual is now on-line. Visit [email or web address] to download your free copy documented in this encounterSt. Elizabeth Hospital03-07-2024 Miscellaneous Notes* Quick Notes - Michelle Ho MD - 07/13/2023 1:08 PM EST SW- Pt doing well. No pain, vb, lof. PE: Gen- NAD, well appearing Abd- Soft, NT See flowsheet A/p 16 wk gestation - AFP ordered - RTO anatomy US and visit after Michelle Ho DO documented in this encounterSt. Elizabeth Hospital03-07-2024 Instructions* Patient Instructions* Dru Polanco MA - 07/13/2023 11:03 AM EST SEQUENTIAL SCREENINGS The [facility] offers sequential screenings for women who are interested in screenings for chromosomal abnormalities and certain defects during a . The sequential screen combinesultrasound and blood tests to determine the risk of chromosomal abnormalities, including Down's Syndrome (Trisomy 21) and Trisomy 18, as well as open neural tube defects including spina bifida. Ultrasound examination is performed between 11 weeks and 13 weeks gestational age. Blood tests are drawn after the ultrasound and again later in the between 15 and 21 weeks gestational age. Please let your physician know if you are interested in this testing. It will require an appointment withour crown and bridge dental lab technician. This is not an ultrasound performed by a physician in our office during a routine visit. SIGNS AND SYMPTOMS OF LABOR 1. Contractions every 10 minutes or more often 2. Clear, pink, or brownish fluid (water) leaking from vagina 3. Feeling that baby is pushing down, pressure 4. Low, dull backache 5. Cramps that feel like a period 6. Cramps with or without diarrhea If you notice any of the above symptoms, contact our office at [phone] and ask to speak with anurse. After hours, you can call doctors registry at [phone] OR call [facility] at [phone] ask to have the doctor educational consultant paged. If you consider this an emergency, dial 9-1-1 or go to your nearest emergency department. NEED HELP? Are you dealing with a violent or abusive relationship? Are you a victim of rape or sexual assult? Call [facility] ([place]) 24 hour Crisis Hotline: 854.935.5965 or 666-774-6737. MANUAL Your Guide to a Healthy manual is now on-line. Visit [email or web address] to download your free copy documented in this encounterSt. Elizabeth Hospital02-08-2024 Miscellaneous Notes* Quick Notes - Brigido Arias MD - 06/15/2023 10:31 AM EST RR- VB No. LOF No. CTXS No. Movement: present. Other c/o: No. Medication list reviewed. Physical Exam See Flow Sheet Abd: soft, nontender, gravid A/P 12w0d Estimated Date of Delivery: 12/28/23 Labs: PN labs today NIPT for aneuploidy screening reviewed schedule anatomy US for 19 weeks next ob appt 4 weeks or prn. Brigido Arias M.D. documented in this encounterSt. Elizabeth Hospital02-08-2024 Instructions* Patient Instructions* Elli Lyle Ma - 06/15/2023 10:20 AM EST SEQUENTIAL SCREENINGS The [facility] offers sequential screenings for women who are interested in screenings for chromosomal abnormalities and certain defects during a . The sequential screen combinesultrasound and blood tests to determine the risk of chromosomal abnormalities, including Down's Syndrome (Trisomy 21) and Trisomy 18, as well as open neural tube defects including spina bifida. Ultrasound examination is performed between 11 weeks and 13 weeks gestational age. Blood tests are drawn after the ultrasound and again later in the between 15 and 21 weeks gestational age. Please let your physician know if you are interested in this testing. It will require an appointment withour crown and bridge dental lab technician. This is not an ultrasound performed by a physician in our office during a routine visit. SIGNS AND SYMPTOMS OF LABOR 1. Contractions every 10 minutes or more often 2. Clear, pink, or brownish fluid (water) leaking from vagina 3. Feeling that baby is pushing down, pressure 4. Low, dull backache 5. Cramps that feel like a period 6. Cramps with or without diarrhea If you notice any of the above symptoms, contact our office at [phone] and ask to speak with anurse. After hours, you can call doctors registry at [phone] OR call [facility] at [phone] ask to have the doctor educational consultant paged. If you consider this an emergency, dial 9--1 or go to your nearest emergency department. NEED HELP? Are you dealing with a violent or abusive relationship? Are you a victim of rape or sexual assult? Call [facility] ([place]) 24 hour Crisis Hotline: 916.700.6753 or 574-774-6840. MANUAL Your Guide to a Healthy manual is now on-line. Visit [email or web address] to download your free copy documented in this encounterSt. Elizabeth Hospital01-11-2024 NoteHNO ID: [id number] Author: ZOE BENAVIDEZ APRN.[employer] Service: ? Author Type: Nurse Practitioner Type: Progress Notes Filed: 05/18/2023 09:31 Note Text: OB point of care ultrasound was performed. See imaging tab for details. Sejal Pardo LPN INITIAL OB ASSESSMENT HPI: Heidy is a 32 year old White here to establish Obstetrical Care. Patient's last menstrual period was 03/23/2023 (exact date). from OB Dating Form. Do you have regular periods/menstrual cycles? Yes was planned Complaints: No OB History T3 L3 SAB0 IAB0 Ectopic0 Multiple0 Live Births3 How many pregnancies have you had before? 6 Have you had a prior partida between 20w and 36w6d? No Did you present in active spontaneous labor or have ruptured membranes, or advanced cervical dilation (greater than or equal to 4 cm) or effacement? No Did you have a previous baby with a GBS Infection? No Please select all that apply for any prior : N/A Did you have a partner with Herpes? No Prior : never History of 4th degree laceration: No Patient's Risk Screening for delivery: MEDICAL/PSYCHOSOCIAL HISTORY: History of hemorrhage or bleeding concerns: No Thyroid Disease: No History of chronic hypertension: No History of pre-existing diabetes: No BMI 22.56 kg/(m2) History of abnormal pap: Yes Prior treatment for cervical dysplasia: colposcopy. History of STDs: None Tobacco use: No E-Cigarette/Vaping Use: No Caffeine use: Yes Drug use: No Alcohol use: No Multivitamin with Folic acid: Yes Worship or heritage: No Would refuse blood transfusion if medically necessary: No ABO/RH(D) Date Value Ref Range Status 02/25/2020 O POSITIVE Final Social Needs: How often does this describe you? I don't have enough money to pay my bills: Never Within the past 12 months, have you worried that your food would run out before you had money to buy more? Never In the past 12 months, has lack of reliable transportation kept you from going to medical appointments or work, or from getting things needed for daily living? Never In the past 12 months, have you had any concerns about having a place to live, or about the condition or quality of your housing? Never Would you like more information on any of the following (please check all that apply)? Social History: Do you have any history of depression, anxiety, PTSD, or other mood problems? No Do you have a history of abuse or trauma that may impact your experience? No Are you currently employed? Yes Depression/Anxiety Screening: denies symptoms of depression. OB Depression and Anxiety Screening- This Encounter (since 05/17/2023) Over the past 2 weeks have you felt down, depressed, or hopeless? Negative Over the past two weeks, have you felt little interest or pleasure in doing things?? Negative Feeling nervous, anxious or on edge 1-Several days Not being able to stop or control worrying 0-Not al all Anxiety Pre-Screening Total (If >/= 3 additional questions will be reviewed) 1 ACOG Recommended Screening: Screening for early gestational diabetes testing: Criteria for early testing requires elevated BMI plus one other risk factor: BMI 22.56 kg/(m2) (risk factor if > than 25 or 23 in Americans) Additional risk factors: None She does not meet ACOG criteria for early gestational DM screening. 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 PNV no.95/ferrous fum/folic ac ( ORAL) Take by mouth. No current facility-administered medications for this visit. Allergies As of Date: 05/18/2023 (No Known Allergies) Fully Assessed 05/18/2023 Does patient have penicillin allergy: No REVIEW OF SYSTEMS: GENERAL: Negative for: Fever or Chills HEENT: Negative for: Headache, Impaired Vision, Ringing in Ears, Nosebleeds NECK: Negative for: Swelling, Pain, Stiffness RESPIRATORY: Negative for: Cough, Shortness of breath, Wheezing GASTROINTESTINAL: Negative for: Heartburn, Constipation, Diarrhea, Blood in stool, Vomiting and Positive for: Nausea MUSCULOSKEL (more content not included)...[facility]11[facility]14[facility]22 History of Present illness Narrative* Brigido Arias MD - 03/21/2022 1:55 PM EST VISIT Heidy Ordoñez is a 31 year old year old here for visit. Delivery Summary: ROS/ Recovery: Feeding: Breast feeding problems: None Menses since delivery: n/a Menstrual pattern prior to : Regular periods Depression: denies symptoms of depression. OB Depression and Anxiety Screening- This Encounter (since 03/20/2022) Over the past 2 weeks have you felt down, depressed, or hopeless? Negative Over the past two weeks, have you felt little interest or pleasure in doing things? 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 PAST SURGICAL HISTORY Procedure Laterality Date 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 MIRENA IUD 08/2014 UNSPECIFIED ORAL SURGERY PROCEDURE, BY REPORT 2006 FAMILY HISTORY Problem Relation Age of Onset No Known Problems Mother Heart Father other (Colitis) Brother Stroke Maternal Grandmother Kidney Disease Maternal Grandfather Breast Cancer Paternal Grandmother 60 Cancer Paternal Grandfather No Known Problems Daughter No Known Problems Son Social History Tobacco Use Smoking status: Never Smokeless tobacco: Never Vaping Use Vaping Use: Never used Substance Use Topics Alcohol use: Not Currently Comment: rarely, not whi;e Drug use: No PHYSICAL EXAMINATION: Wt 128 lb (58.1kg) LMP 04/30/2021 GENERAL: pleasant, female in no apparent distress HEENT: Normocephalic, atraumatic, mucus membranes moist, and no lesions NECK: Supple, full range of motion, no adenopathy, and thyroid normal DERMATOLOGY: Normal, without lesions, non-icteric, and non-hirsute BREAST: soft, non-tender, symmetric, no dominant mass, normal nipple-areolar complex, no lymphadenopathy, and no nipple discharge CHEST: Normal inspiratory effort ABDOMEN: soft, non-tender, and no masses. INCISION: N/A PELVIC: external genitalia normal, normal Bartholin's glands, urethra, Villarreal's glands, no vulvar lesions, no cervical lesions, good vaginal support, physiologic discharge present, normal appearing perineal body and perianal region BIMANUAL: uterus normal size, shape and consistency, no adnexal masses, and non-tender NEURO: alert and oriented x3,exam grossly non-focal EXTREMITIES: normal ASSESSMENT AND PLAN: 31 year old status post with normal course. Contraception plan: condoms Follow up: RTC for annual exams and PRN Brigido Arias MD documented in this encounterSt. [facility] Hospital10-10-2022 History of Present illness Narrative* Brigido Arias MD - 02/14/2022 1:53 PM EDT EARLY VISIT Heidy Ordoñez is a 31 year old here for 1 week visit. Some pressure, feels uterus low. Delivery Summary: ROS: General: Denies any fever or chills Hypertension Screening: Headache? No. Visual Changes? No Epigastric Pain? No Increased Swelling? No Taking any BP medications at home? No If applicable, monitoring BP at home? (If Yes, include results) NA Mood: normal Depression: denies symptoms of depression. OB Depression and Anxiety Screening- This Encounter (since 02/13/2022) None Feeding: Breast feeding problems: None Bladder: No dysuria, gross hematuria, urinary frequency, urinary urgency, or incontinence Bowel symptoms: Negative for abdominal discomfort, blood in stools or black stools and change in bowel habits Abdomen: N/A Bleeding: light flow Bottom and Perineum: No issues Sleep: no sleep concerns, feels rested Emotional support: Yes Exercise: N/A Other issues: None PHYSICAL EXAMINATION: BP 112/70 Wt 126 lb (57.2 kg) LMP 04/30/2021 (Exact Date) Yes BMI 23.81 kg/m General: pleasant,female in no apparent distress, A&O x 3. Skin warm and intact. Breast: Deferred Abdomen: Deferred /Incision: N/A Pelvic: Deferred Bimanual: Deferred ASSESSMENT AND PLAN: 31 year old status post with normal course. Contraception plan: consdiering . Reinforced 6-week pelvic rest. Encouraged condom usage should patient deviate. Education: resources provided - see MA/RN note Follow up: Return to Clinic for 6 week visit and as needed reassured about pelvic pressure Medical Decision Making: Medical Decision Making Level: 1 - N/A Brigido Arias MD documented in this encounterSt. [facility] Hospital09-29-2022 History of Present illness Narrative* Shabnam Fagan RN - 02/03/2022 1:33 PM EDT Patient delivered via by Dr. Arias on 02/03/22 at [facility]. See OB history. Shabnam Fagan RN documented in this encounterSt. Elizabeth Hospital09-28-2022 Miscellaneous Notes* Quick Notes - Brigido Arias MD - 02/02/2022 8:48 AM EDT RR- VB No. LOF No. CTXS irreg and regular but not really painful. Then space out. Movement: present. Other c/o: No. Medication list reviewed. Physical Exam See Flow Sheet Abd: soft, nontender, gravid Ext: edema: Trace A/P 39w5d Estimated Date of Delivery: 02/04/22 d/w her option of elective induction, will consider f/u in 1 week if not delivered . Brigido Arias M.D. documented in this encounterSt[facility] Instructions* Patient Instructions* Rachel Valdovinos Ma - 02/02/2022 8:35 AM EDT SEQUENTIAL SCREENINGS [facility] offers sequential screenings for women who are interested in screenings for chromosomal abnormalities and certain defects during a . The sequential screen combinesultrasound and blood tests to determine the risk of chromosomal abnormalities, including Down's Syndrome (Trisomy 21) and Trisomy 18, as well as open neural tube defects including spina bifida. Ultrasound examination is performed between 11 weeks and 13 weeks gestational age. Blood tests are drawn after the ultrasound and again later in the between 15 and 21 weeks gestational age. Please let your physician know if you are interested in this testing. It will require an appointment withour crown and bridge dental lab technician. This is not an ultrasound performed by a physician in our office during a routine visit. SIGNS AND SYMPTOMS OF LABOR 1. Contractions every 10 minutes or more often 2. Clear, pink, or brownish fluid (water) leaking from vagina 3. Feeling that baby is pushing down, pressure 4. Low, dull backache 5. Cramps that feel like a period 6. Cramps with or without diarrhea If you notice any of the above symptoms, contact our office at [phone] and ask to speak with anurse. After hours, you can call doctors registry at [phone] OR call [facility] at [phone] ask to have the doctor educational consultant paged. If you consider this an emergency, dial 9--1 or go to your nearest emergency department. NEED HELP? Are you dealing with a violent or abusive relationship? Are you a victim of rape or sexual assult? Call [facility] ([place]) 24 hour Crisis Hotline: 567.332.2725 or 646-522-8956. MANUAL Your Guide to a Healthy manual is now on-line. Visit [email or web address] to download your free copy documented in this encounterSt. [facility]09-[facility]22 Miscellaneous Notes* Quick Notes - Maddy Harris MD - 01/21/2022 11:00 AM EDT DM-Pt doing well. Denies vaginal Bleeding, Leaking fluid, or regular Contractions. Pt reports good movement Physical Exam: Gen: female in no apparent distress Abd: soft, Gravid. Non tender to palpation. See flow sheet A/P: @ 38 weeks 1) membranes swept per patient request 2) Kick counts and labor reviewed 3) GBS neg 4) RTO one week Maddy Christianson MD documented in this encounterSt. [facility]09-16-2022 Instructions* Patient Instructions* Elli Lyle Ma - 01/21/2022 10:29 AM EDT SEQUENTIAL SCREENINGS [facility] offers sequential screenings for women who are interested in screenings for chromosomal abnormalities and certain defects during a . The sequential screen combinesultrasound and blood tests to determine the risk of chromosomal abnormalities, including Down's Syndrome (Trisomy 21) and Trisomy 18, as well as open neural tube defects including spina bifida. Ultrasound examination is performed between 11 weeks and 13 weeks gestational age. Blood tests are drawn after the ultrasound and again later in the between 15 and 21 weeks gestational age. Please let your physician know if you are interested in this testing. It will require an appointment withour crown and bridge dental lab technician. This is not an ultrasound performed by a physician in our office during a routine visit. SIGNS AND SYMPTOMS OF LABOR 1. Contractions every 10 minutes or more often 2. Clear, pink, or brownish fluid (water) leaking from vagina 3. Feeling that baby is pushing down, pressure 4. Low, dull backache 5. Cramps that feel like a period 6. Cramps with or without diarrhea If you notice any of the above symptoms, contact our office at [phone] and ask to speak with anurse. After hours, you can call doctors registry at [phone] OR call [facility] at [phone] ask to have the doctor educational consultant paged. If you consider this an emergency, dial 3-2-8 or go to your nearest emergency department. NEED HELP? Are you dealing with a violent or abusive relationship? Are you a victim of rape or sexual assult? Call [facility] ([place]) 24 hour Crisis Hotline: 409.171.3509 or 336-276-3489. MANUAL Your Guide to a Healthy manual is now on-line. Visit [email or web address] to download your free copy documented in this encounterSt. [facility] Hospital09-07-2022 Miscellaneous Notes* Quick Notes - Brigido Arias MD - 01/12/2022 11:22 AM EDT RR- VB No. LOF No. CTXS No. Movement: present. Other c/o: No. Medication list reviewed. Physical Exam See Flow Sheet Abd: soft, nontender, gravid Ext: edema: Trace A/P 36w5d Estimated Date of Delivery: 02/04/22 kick counts PTL precautions f/u in 1 week or prn. Brigido Arias M.D. documented in this encounterSt. [facility] Hospital09-07-2022 Instructions* Patient Instructions* Rachel Valdovinos Ma - 01/12/2022 10:58 AM EDT SEQUENTIAL SCREENINGS The [facility] offers sequential screenings for women who are interested in screenings for chromosomal abnormalities and certain defects during a . The sequential screen combinesultrasound and blood tests to determine the risk of chromosomal abnormalities, including Down's Syndrome (Trisomy 21) and Trisomy 18, as well as open neural tube defects including spina bifida. Ultrasound examination is performed between 11 weeks and 13 weeks gestational age. Blood tests are drawn after the ultrasound and again later in the between 15 and 21 weeks gestational age. Please let your physician know if you are interested in this testing. It will require an appointment withour crown and bridge dental lab technician. This is not an ultrasound performed by a physician in our office during a routine visit. SIGNS AND SYMPTOMS OF LABOR 1. Contractions every 10 minutes or more often 2. Clear, pink, or brownish fluid (water) leaking from vagina 3. Feeling that baby is pushing down, pressure 4. Low, dull backache 5. Cramps that feel like a period 6. Cramps with or without diarrhea If you notice any of the above symptoms, contact our office at [phone] and ask to speak with anurse. After hours, you can call doctors registry at [phone] OR call [facility] at [phone] ask to have the doctor educational consultant paged. If you consider this an emergency, dial 91-5 or go to your nearest emergency department. NEED HELP? Are you dealing with a violent or abusive relationship? Are you a victim of rape or sexual assult? Call [facility] ([facility] 24 hour Crisis Hotline: 381.174.3080 or 296-357-0237. MANUAL Your Guide to a Healthy manual is now on-line. Visit [email or web address] to download your free copy documented in this encounterSt. [facility]08-31-2022 Miscellaneous Notes* Quick Notes - Brigido Arias MD - 01/05/2022 10:28 AM EDT RR- VB No. LOF No. CTXS No. Movement: present. Other c/o: No. Medication list reviewed. Physical Exam See Flow Sheet Abd: soft, nontender, gravid Ext: edema: Trace A/P 35w5d Estimated Date of Delivery: 02/04/22 Labs: GBS done kick counts f/u in 1 week or prn Brigido Arias M.D. documented in this encounterSt. [facility] Hospital08-31-2022 Instructions* Patient Instructions* Rachel Valdovinos Prisca - 01/05/2022 10:01 AM EDT SEQUENTIAL SCREENINGS [facility] offers sequential screenings for women who are interested in screenings for chromosomal abnormalities and certain defects during a . The sequential screen combinesultrasound and blood tests to determine the risk of chromosomal abnormalities, including Down's Syndrome (Trisomy 21) and Trisomy 18, as well as open neural tube defects including spina bifida. Ultrasound examination is performed between 11 weeks and 13 weeks gestational age. Blood tests are drawn after the ultrasound and again later in the between 15 and 21 weeks gestational age. Please let your physician know if you are interested in this testing. It will require an appointment withour crown and bridge dental lab technician. This is not an ultrasound performed by a physician in our office during a routine visit. SIGNS AND SYMPTOMS OF LABOR 1. Contractions every 10 minutes or more often 2. Clear, pink, or brownish fluid (water) leaking from vagina 3. Feeling that baby is pushing down, pressure 4. Low, dull backache 5. Cramps that feel like a period 6. Cramps with or without diarrhea If you notice any of the above symptoms, contact our office at [phone] and ask to speak with anurse. After hours, you can call [employer] registry at [phone] OR call [facility] at [phone] ask to have the doctor educational consultant paged. If you consider this an emergency, dial 9-1-7 or go to your nearest emergency department. NEED HELP? Are you dealing with a violent or abusive relationship? Are you a victim of rape or sexual assult? Call [facility] ([place]) 24 hour Crisis Hotline: 151.157.6253 or 432-036-2020. MANUAL Your Guide to a Healthy manual is now on-line. Visit [email or web address] to download your free copy documented in this encounterSt. [facility] Hospital08-03-2022 Miscellaneous Notes* Quick Notes - Brigido Arias MD - 12/08/2021 11:12 AM EDT RR- VB No. LOF No. CTXS No. Movement: present. Other c/o: No. Medication list reviewed. Physical Exam See Flow Sheet Abd: soft, nontender, gravid Ext: edema: Trace A/P 31w5d Estimated Date of Delivery: 02/04/22 kick counts f/u in 2 weeks or prn cont. PNV. Brigido Arias M.D. documented in this encounterSt. [facility] Hospital08-03-2022 Instructions* Patient Instructions* Rachel Valdovinos Ma - 12/08/2021 10:58 AM EDT SEQUENTIAL SCREENINGS [facility] offers sequential screenings for women who are interested in screenings for chromosomal abnormalities and certain defects during a . The sequential screen combinesultrasound and blood tests to determine the risk of chromosomal abnormalities, including Down's Syndrome (Trisomy 21) and Trisomy 18, as well as open neural tube defects including spina bifida. Ultrasound examination is performed between 11 weeks and 13 weeks gestational age. Blood tests are drawn after the ultrasound and again later in the between 15 and 21 weeks gestational age. Please let your physician know if you are interested in this testing. It will require an appointment withour crown and bridge dental lab technician. This is not an ultrasound performed by a physician in our office during a routine visit. SIGNS AND SYMPTOMS OF LABOR 1. Contractions every 10 minutes or more often 2. Clear, pink, or brownish fluid (water) leaking from vagina 3. Feeling that baby is pushing down, pressure 4. Low, dull backache 5. Cramps that feel like a period 6. Cramps with or without diarrhea If you notice any of the above symptoms, contact our office at [phone] and ask to speak with anurse. After hours, you can call doctors registry at [phone] OR call [facility] at [phone] ask to have the doctor educational consultant paged. If you consider this an emergency, dial 9--0 or go to your nearest emergency department. NEED HELP? Are you dealing with a violent or abusive relationship? Are you a victim of rape or sexual assult? Call [facility] ([place]) 24 hour Crisis Hotline: 247.805.7847 or 653-914-7017. MANUAL Your Guide to a Healthy manual is now on-line. Visit [email or web address] to download your free copy documented in this encounterSt. [facility] Hospital07-20-2022 Miscellaneous Notes* Quick Notes - Maddy Harris MD - 11/24/2021 11:51 AM EDT DM-Pt doing well. Denies vaginal Bleeding, Leaking fluid, or regular Contractions. Pt reports good movement Physical Exam: Gen: female in no apparent distress Abd: soft, Gravid. Non tender to palpation. See flow sheet A/P: @ 29.5 weeks 1) 28 week labs reviewed 2) LARC form signed and declined 3) tdap today 4) Kick counts reviewed 5) RTO 2 weeks Maddy Christianson MD documented in this encounterSt. Elizabeth Hospital07-20-2022 History of Present illness Narrative* Elli Lyle Ma - 11/24/2021 11:49 AM EDT Patient identified by name and date of . Heidy Ordoñez presents today for a vaccination of Tdap. Patient denies an allergy to latex: yes Patient denies a severe (life-threatening) allergy to a previous dose of Tdap, DTP, DTaP, DT or Td vaccine. Yes Patient denies history of epilepsy or neurological problems: Yes Patient is afebrile and denies being moderately or severely ill: Yes Patient denies history of Guillain-Gillette Syndrome (a severe paralytic illness): Yes Tdap Adacel injection was given without incident. See immunizations for details of immunizations administered today. VIS sheet provided: Yes Provider ELHAM was present in office at time of injection. Elli Lyle Ma documented in this encounterSt. Elizabeth Hospital07-20-2022 Instructions* Patient Instructions* Elli Lyle Ma - 11/24/2021 11:35 AM EDT SEQUENTIAL SCREENINGS [facility] offers sequential screenings for women who are interested in screenings for chromosomal abnormalities and certain defects during a . The sequential screen combinesultrasound and blood tests to determine the risk of chromosomal abnormalities, including Down's Syndrome (Trisomy 21) and Trisomy 18, as well as open neural tube defects including spina bifida. Ultrasound examination is performed between 11 weeks and 13 weeks gestational age. Blood tests are drawn after the ultrasound and again later in the between 15 and 21 weeks gestational age. Please let your physician know if you are interested in this testing. It will require an appointment withour crown and bridge dental lab technician. This is not an ultrasound performed by a physician in our office during a routine visit. SIGNS AND SYMPTOMS OF LABOR 1. Contractions every 10 minutes or more often 2. Clear, pink, or brownish fluid (water) leaking from vagina 3. Feeling that baby is pushing down, pressure 4. Low, dull backache 5. Cramps that feel like a period 6. Cramps with or without diarrhea If you notice any of the above symptoms, contact our office at [phone] and ask to speak with anurse. After hours, you can call doctors registry at [phone] OR call [facility] at [phone] ask to have the doctor educational consultant paged. If you consider this an emergency, dial 6-3-0 or go to your nearest emergency department. NEED HELP? Are you dealing with a violent or abusive relationship? Are you a victim of rape or sexual assult? Call [facility] ([place]) 24 hour Crisis Hotline: 563.521.7377 or 601-518-0347. MANUAL Your Guide to a Healthy manual is now on-line. Visit [email or web address] to download your free copy documented in this encounterSt. [facility] Hospital07-06-2022 Miscellaneous Notes* Quick Notes - Brigido Arias MD - 11/10/2021 11:22 AM EDT RR- VB No. LOF No. CTXS No. Movement: present. Other c/o: No. Medication list reviewed. Physical Exam See Flow Sheet Abd: soft, nontender, gravid Ext: edema: no A/P 27w5d Estimated Date of Delivery: 02/04/22 Labs: 28 week labs f/u in 2 weeks . Brigido Arias M.D. documented in this encounterSt. Elizabeth Hospital07-06-2022 Instructions* Patient Instructions* Rachel Valdovinos Ma - 11/10/2021 11:02 AM EDT SEQUENTIAL SCREENINGS [facility] offers sequential screenings for women who are interested in screenings for chromosomal abnormalities and certain defects during a . The sequential screen combinesultrasound and blood tests to determine the risk of chromosomal abnormalities, including Down's Syndrome (Trisomy 21) and Trisomy 18, as well as open neural tube defects including spina bifida. Ultrasound examination is performed between 11 weeks and 13 weeks gestational age. Blood tests are drawn after the ultrasound and again later in the between 15 and 21 weeks gestational age. Please let your physician know if you are interested in this testing. It will require an appointment withour crown and bridge dental lab technician. This is not an ultrasound performed by a physician in our office during a routine visit. SIGNS AND SYMPTOMS OF LABOR 1. Contractions every 10 minutes or more often 2. Clear, pink, or brownish fluid (water) leaking from vagina 3. Feeling that baby is pushing down, pressure 4. Low, dull backache 5. Cramps that feel like a period 6. Cramps with or without diarrhea If you notice any of the above symptoms, contact our office at [phone] and ask to speak with anurse. After hours, you can call doctors registry at [phone] OR call [facility] at [phone] ask to have the doctor educational consultant paged. If you consider this an emergency, dial 4-0-5 or go to your nearest emergency department. NEED HELP? Are you dealing with a violent or abusive relationship? Are you a victim of rape or sexual assult? Call [facility] ([place]) 24 hour Crisis Hotline: 356.887.8884 or 713-314-5784. MANUAL Your Guide to a Healthy manual is now on-line. Visit [email or web address] to download your free copy documented in this encounterSt. [facility] Hospital06-08-2022 Miscellaneous Notes* Quick Notes - Brigido Arias MD - 10/13/2021 11:15 AM EDT RR- VB No. LOF No. CTXS No. Movement: present. Other c/o: No. Medication list reviewed. Physical Exam See Flow Sheet Abd: soft, nontender, gravid Ext: edema: Trace A/P 23w5d Estimated Date of Delivery: 02/04/22 anatomy US reviewed f/u in 4 weeks or prn . Brigido Arias M.D. documented in this encounterSt. [facility] Hospital06-08-2022 Instructions* Patient Instructions* Rachel Valdovinos Ma - 10/13/2021 10:51 AM EDT SEQUENTIAL SCREENINGS [facility] offers sequential screenings for women who are interested in screenings for chromosomal abnormalities and certain defects during a . The sequential screen combinesultrasound and blood tests to determine the risk of chromosomal abnormalities, including Down's Syndrome (Trisomy 21) and Trisomy 18, as well as open neural tube defects including spina bifida. Ultrasound examination is performed between 11 weeks and 13 weeks gestational age. Blood tests are drawn after the ultrasound and again later in the between 15 and 21 weeks gestational age. Please let your physician know if you are interested in this testing. It will require an appointment withour crown and bridge dental lab technician. This is not an ultrasound performed by a physician in our office during a routine visit. SIGNS AND SYMPTOMS OF LABOR 1. Contractions every 10 minutes or more often 2. Clear, pink, or brownish fluid (water) leaking from vagina 3. Feeling that baby is pushing down, pressure 4. Low, dull backache 5. Cramps that feel like a period 6. Cramps with or without diarrhea If you notice any of the above symptoms, contact our office at [phone] and ask to speak with anurse. After hours, you can call doctors registry at [phone] OR call [facility] at [phone] ask to have the doctor educational consultant paged. If you consider this an emergency, dial 4-3- or go to your nearest emergency department. NEED HELP? Are you dealing with a violent or abusive relationship? Are you a victim of rape or sexual assult? Call [facility] ([place]) 24 hour Crisis Hotline: 842.764.8268 or 400-689-4817. MANUAL Your Guide to a Healthy manual is now on-line. Visit [email or web address] to download your free copy documented in this encounterSt. [facility] Hospital05-11-2022 Miscellaneous Notes* Quick Notes - Brigido Arias MD - 09/15/2021 10:49 AM EDT RR- VB No. LOF No. CTXS No. Movement: present. Other c/o: No. Medication list reviewed. Physical Exam See Flow Sheet Abd: soft, nontender, gravid Ext: edema: no A/P 19w5d Estimated Date of Delivery: 02/04/22 20 week US today, results pending f/u in 4 weeks or prn . Brigido Arias M.D. documented in this encounterSt. Elizabeth Hospital05-11-2022 Instructions* Patient Instructions* Rachel Valdovinos Ia - 09/15/2021 9:57 AM EDT SEQUENTIAL SCREENINGS The [facility] offers sequential screenings for women who are interested in screenings for chromosomal abnormalities and certain defects during a . The sequential screen combinesultrasound and blood tests to determine the risk of chromosomal abnormalities, including Down's Syndrome (Trisomy 21) and Trisomy 18, as well as open neural tube defects including spina bifida. Ultrasound examination is performed between 11 weeks and 13 weeks gestational age. Blood tests are drawn after the ultrasound and again later in the between 15 and 21 weeks gestational age. Please let your physician know if you are interested in this testing. It will require an appointment withour crown and bridge dental lab technician. This is not an ultrasound performed by a physician in our office during a routine visit. SIGNS AND SYMPTOMS OF LABOR 1. Contractions every 10 minutes or more often 2. Clear, pink, or brownish fluid (water) leaking from vagina 3. Feeling that baby is pushing down, pressure 4. Low, dull backache 5. Cramps that feel like a period 6. Cramps with or without diarrhea If you notice any of the above symptoms, contact our office at [phone] and ask to speak with anurse. After hours, you can call doctors registry at [phone] OR call [facility] at [phone] ask to have the doctor educational consultant paged. If you consider this an emergency, dial 05-08 or go to your nearest emergency department. NEED HELP? Are you dealing with a violent or abusive relationship? Are you a victim of rape or sexual assult? Call [facility] ([place]) 24 hour Crisis Hotline: 819.187.9586 or 926-683-5156. MANUAL Your Guide to a Healthy manual is now on-line. Visit [email or web address] to download your free copy documented in this encounterSt. [facility] Hospital04-18-2022 Miscellaneous Notes* Quick Notes - Adina Rivera APRN.CNM - 08/23/2021 11:07 AM EDT MAULIK-S: Heidy Ordoñez is a 31 year old female who presents at 16w3d with JAGDEEP:02/04/2022, by Last Menstrual Period for a routine visit. Good FM. Denies headache, visual changes, chest pain, shortness of breath, vaginal bleeding, leakage of fluid, or dysuria. Feeling well, no complaints. O: See flow sheet Gen: No apparent distress Abd: Gravid, nontender S=D ASSESSMENT/PLAN: 1. 16 weeks gestation of 2. Short interval between pregnancies affecting , antepartum 3. Encounter for supervision of other normal in first trimester P: 1) PTL precautions reviewed and when to call 2) RTO in 4 weeks 3) Declines aneuploidy screening. 4) Anatomy US next visit 5) PN labs reviewed Adina Rivera APRN.CNM documented in this encounterSt. Elizabeth Hospital04-18-2022 Instructions* Patient Instructions* Norah Magana MA - 08/23/2021 10:54 AM EDT SEQUENTIAL SCREENINGS [facility] offers sequential screenings for women who are interested in screenings for chromosomal abnormalities and certain defects during a . The sequential screen combinesultrasound and blood tests to determine the risk of chromosomal abnormalities, including Down's Syndrome (Trisomy 21) and Trisomy 18, as well as open neural tube defects including spina bifida. Ultrasound examination is performed between 11 weeks and 13 weeks gestational age. Blood tests are drawn after the ultrasound and again later in the between 15 and 21 weeks gestational age. Please let your physician know if you are interested in this testing. It will require an appointment withour crown and bridge dental lab technician. This is not an ultrasound performed by a physician in our office during a routine visit. SIGNS AND SYMPTOMS OF LABOR 1. Contractions every 10 minutes or more often 2. Clear, pink, or brownish fluid (water) leaking from vagina 3. Feeling that baby is pushing down, pressure 4. Low, dull backache 5. Cramps that feel like a period 6. Cramps with or without diarrhea If you notice any of the above symptoms, contact our office at [phone] and ask to speak with anurse. After hours, you can call doctors registry at [phone] OR call [facility] at [phone] ask to have the doctor educational consultant paged. If you consider this an emergency, dial [phone] or go to your nearest emergency department. NEED HELP? Are you dealing with a violent or abusive relationship? Are you a victim of rape or sexual assult? Call [facility] ([place]) 24 hour Crisis Hotline: 393.410.1254 or 796-986-0946. MANUAL Your Guide to a Healthy manual is now on-line. Visit [email or web address] to download your free copy [facility] of Past illness Narrative* Problem Noted Date Resolved Date Positive GBS test 04/23/2020 01/21/2022 IUGR (intrauterine growth re striction) affecting care of mother, third trimester, fetus 4 11/26/2018 01/21/2019 Overview: November 26, 2018 EFW is 7th percentile. NSts and induction at 39 weeks. Brigido Arias MD Nausea/vomiting in 05/11/2018 Overview: 05/11/2018Patient is complaining of nausea in .Denies vomiting. Vitamin B6 recommended. Advised patient to call/come in if she is unable to keep any food or fluids down in a 24-hour period. TKRN Cervical high risk human pap illomavirus (HPV) DNA test positive 08/16/2013 08/22/2013 documented as of this encounter (statuses as of 01/21/2022) [facility] Past illness Narrative* Problem Noted Date Resolved Date Positive GBS test 04/23/2020 01/21/2022 IUGR (intrauterine growth re striction) affecting care of mother, third trimester, fetus 4 11/26/2018 01/21/2019 Overview: November 26, 2018 EFW is 7th percentile. NSts and induction at 39 weeks. Brigido Arias MD Nausea/vomiting in 05/11/2018 Overview: 05/11/2018Patient is complaining of nausea in .Denies vomiting. Vitamin B6 recommended. Advised patient to call/come in if she is unable to keep any food or fluids down in a 24-hour period. TKRN Cervical high risk human pap illomavirus (HPV) DNA test positive 08/16/2013 08/22/2013 documented as of this encounter (statuses as of 02/02/2022) [facility] illness Narrative* Problem Noted Date Resolved Date Positive GBS test 04/23/2020 01/21/2022 IUGR (intrauterine growth re striction) affecting care of mother, third trimester, fetus 4 11/26/2018 01/21/2019 Overview: November 26, 2018 EFW is 7th percentile. NSts and induction at 39 weeks. Brigido Arias MD Nausea/vomiting in 05/11/2018 Overview: 05/11/2018Patient is complaining of nausea in .Denies vomiting. Vitamin B6 recommended. Advised patient to call/come in if she is unable to keep any food or fluids down in a 24-hour period. TKRN Cervical high risk human pap illomavirus (HPV) DNA test positive 08/16/2013 08/22/2013 documented as of this encounter (statuses as of 02/03/2022) [facility] Narrative* Problem Noted Date Resolved Date Positive GBS test 04/23/2020 01/21/2022 Short interval between pregn ancies affecting , antepartum 09/26/2019 02/14/2022 Overview: 2Patient delivered her previous child 05/10/2020.TKRN IUGR (intrauterine growth re tardation) in prior , , unspecified trimester 09/26/2019 02/14/2022 Overview: 05/27/2021 Patient has a history of suspected IUGR with herfirst and a small placenta. TKRN IUGR (intrauterine growth re striction) affecting care of mother, third trimester, fetus 4 11/26/2018 01/21/2019 Overview: November 26, 2018 EFW is 7th percentile. NSts and induction at 39 weeks. Brigido Arias MD Nausea/vomiting in 05/11/2018 Overview: 05/11/2018Patient is complaining of nausea in .Denies vomiting. Vitamin B6 recommended. Advised patient to call/come in if she is unable to keep any food or fluids down in a 24-hour period. TKRN Cervical high risk human pap illomavirus (HPV) DNA test positive 08/16/2013 08/22/2013 documented as of this encounter (statuses as of 02/14/2022) [facility] Narrative* Problem Noted Date Resolved Date Positive GBS test 04/23/2020 01/21/2022 Short interval between pregn ancies affecting , antepartum 09/26/2019 02/14/2022 Overview: 2Patient delivered her previous child 05/10/2020.TKRN IUGR (intrauterine growth re tardation) in prior , , unspecified trimester 09/26/2019 02/14/2022 Overview: 05/27/2021 Patient has a history of suspected IUGR with herfirst and a small placenta. TKRN IUGR (intrauterine growth re striction) affecting care of mother, third trimester, fetus 4 11/26/2018 01/21/2019 Overview: November 26, 2018 EFW is 7th percentile. NSts and induction at 39 weeks. Brigido Arias MD Nausea/vomiting in 05/11/2018 Overview: 05/11/2018Patient is complaining of nausea in .Denies vomiting. Vitamin B6 recommended. Advised patient to call/come in if she is unable to keep any food or fluids down in a 24-hour period. TKRN Cervical high risk human pap illomavirus (HPV) DNA test positive 08/16/2013 08/22/2013 documented as of this encounter (statuses as of 03/22/2022) [facility] Narrative* Problem Noted Date Diagnosed Date Resolved Date Positive GBS test 04/23/2020 01/21/2022 Short interval between pregn ancies affecting , antepartum 09/26/2019 02/14/2022 Overview: 05/27/2021atient delivered her previous child 05/10/2020.TKRN IUGR (intrauterine growth re tardation) in prior , , unspecified trimester 09/26/2019 02/14/2022 Overview: 05/27/2021 Patient has a history of suspected IUGR with herfirst and a small placenta. TKRN IUGR (intrauterine growth re striction) affecting care of mother, third trimester, fetus 4 11/26/2018 01/21/2019 Overview: November 26, 2018 EFW is 7th percentile. NSts and induction at 39 weeks. Brigido Arias MD Nausea/vomiting in 05/11/2018 11/26/2018 Overview: 05/11/2018Patient is complaining of nausea in .Denies vomiting. Vitamin B6 recommended. Advised patient to call/come in if she is unable to keep any food or fluids down in a 24-hour period. TKRN Cervical high risk human pap illomavirus (HPV) DNA test positive 08/16/2013 08/22/2013 documented as of this encounter (statuses as of 06/15/2023) [facility] Narrative* Problem Noted Date Diagnosed Date Resolved Date Positive GBS test 04/23/2020 01/21/2022 Short interval between pregn ancies affecting , antepartum 09/26/2019 02/14/2022 Overview: 2Patient delivered her previous child 05/10/2020.TKRN IUGR (intrauterine growth re tardation) in prior , , unspecified trimester 09/26/2019 02/14/2022 Overview: 05/27/2021 Patient has a history of suspected IUGR with herfirst and a small placenta. TKRN IUGR (intrauterine growth re striction) affecting care of mother, third trimester, fetus 4 11/26/2018 01/21/2019 Overview: November 26, 2018 EFW is 7th percentile. NSts and induction at 39 weeks. Brigido Arias MD Nausea/vomiting in 05/11/2018 11/26/2018 Overview: 05/11/2018Patient is complaining of nausea in .Denies vomiting. Vitamin B6 recommended. Advised patient to call/come in if she is unable to keep any food or fluids down in a 24-hour period. TKRN Cervical high risk human pap illomavirus (HPV) DNA test positive 08/16/2013 08/22/2013 documented as of this encounter (statuses as of 07/13/2023) [facility] Narrative* Problem Noted Date Diagnosed Date Resolved Date Positive GBS test 04/23/2020 01/21/2022 Short interval between pregn ancies affecting , antepartum 09/26/2019 02/14/2022 Overview: 2Patient delivered her previous child 05/10/2020.TKRN IUGR (intrauterine growth re tardation) in prior , , unspecified trimester 09/26/2019 02/14/2022 Overview: 05/27/2021 Patient has a history of suspected IUGR with herfirst and a small placenta. TKRN IUGR (intrauterine growth re striction) affecting care of mother, third trimester, fetus 4 11/26/2018 01/21/2019 Overview: November 26, 2018 EFW is 7th percentile. NSts and induction at 39 weeks. Brigido Arias MD Nausea/vomiting in 05/11/2018 11/26/2018 Overview: 05/11/2018Patient is complaining of nausea in .Denies vomiting. Vitamin B6 recommended. Advised patient to call/come in if she is unable to keep any food or fluids down in a 24-hour period. TKRN Cervical high risk human pap illomavirus (HPV) DNA test positive 08/16/2013 08/22/2013 documented as of this encounter (statuses as of 08/10/2023) [facility] Narrative* Problem Noted Date Diagnosed Date Resolved Date Positive GBS test 04/23/2020 01/21/2022 Short interval between pregn ancies affecting , antepartum 09/26/2019 02/14/2022 Overview: 2Patient delivered her previous child 05/10/2020.TKRN IUGR (intrauterine growth re tardation) in prior , , unspecified trimester 09/26/2019 02/14/2022 Overview: 05/27/2021 Patient has a history of suspected IUGR with herfirst and a small placenta. TKRN IUGR (intrauterine growth re striction) affecting care of mother, third trimester, fetus 4 11/26/2018 01/21/2019 Overview: November 26, 2018 EFW is 7th percentile. NSts and induction at 39 weeks. Brigido Arias MD Nausea/vomiting in 05/11/2018 11/26/2018 Overview: 05/11/2018Patient is complaining of nausea in .Denies vomiting. Vitamin B6 recommended. Advised patient to call/come in if she is unable to keep any food or fluids down in a 24-hour period. TKRN Cervical high risk human pap illomavirus (HPV) DNA test positive 08/16/2013 08/22/2013 documented as of this encounter (statuses as of 08/11/2023) [facility] Narrative* Problem Noted Date Resolved Date IUGR (intrauterine growth re striction) affecting care of mother, third trimester, fetus 4 11/26/2018 01/21/2019 Overview: November 26, 2018 EFW is 7th percentile. NSts and induction at 39 weeks. Brigido Arias MD Nausea/vomiting in 05/11/2018 Overview: 05/11/2018Patient is complaining of nausea in .Denies vomiting. Vitamin B6 recommended. Advised patient to call/come in if she is unable to keep any food or fluids down in a 24-hour period. TKRN Cervical high risk human pap illomavirus (HPV) DNA test positive 08/16/2013 08/22/2013 documented as of this encounter (statuses as of 08/23/2021) [facility] Narrative* Problem Noted Date Resolved Date IUGR (intrauterine growth re striction) affecting care of mother, third trimester, fetus 4 11/26/2018 01/21/2019 Overview: November 26, 2018 EFW is 7th percentile. NSts and induction at 39 weeks. Brigido Arias MD Nausea/vomiting in 05/11/2018 Overview: 05/11/2018Patient is complaining of nausea in .Denies vomiting. Vitamin B6 recommended. Advised patient to call/come in if she is unable to keep any food or fluids down in a 24-hour period. TKRN Cervical high risk human pap illomavirus (HPV) DNA test positive 08/16/2013 08/22/2013 documented as of this encounter (statuses as of 09/15/2021) [facility] Narrative* Problem Noted Date Resolved Date IUGR (intrauterine growth re striction) affecting care of mother, third trimester, fetus 4 11/26/2018 01/21/2019 Overview: November 26, 2018 EFW is 7th percentile. NSts and induction at 39 weeks. Brigido Arias MD Nausea/vomiting in 05/11/2018 Overview: 05/11/2018Patient is complaining of nausea in .Denies vomiting. Vitamin B6 recommended. Advised patient to call/come in if she is unable to keep any food or fluids down in a 24-hour period. TKRN Cervical high risk human pap illomavirus (HPV) DNA test positive 08/16/2013 08/22/2013 documented as of this encounter (statuses as of 09/15/2021) [facility] Narrative* Problem Noted Date Resolved Date IUGR (intrauterine growth re striction) affecting care of mother, third trimester, fetus 4 11/26/2018 01/21/2019 Overview: November 26, 2018 EFW is 7th percentile. NSts and induction at 39 weeks. Brigido Arias MD Nausea/vomiting in 05/11/2018 Overview: 05/11/2018Patient is complaining of nausea in .Denies vomiting. Vitamin B6 recommended. Advised patient to call/come in if she is unable to keep any food or fluids down in a 24-hour period. TKRN Cervical high risk human pap illomavirus (HPV) DNA test positive 08/16/2013 08/22/2013 documented as of this encounter (statuses as of 10/13/2021) [facility] Narrative* Problem Noted Date Resolved Date IUGR (intrauterine growth re striction) affecting care of mother, third trimester, fetus 4 11/26/2018 01/21/2019 Overview: November 26, 2018 EFW is 7th percentile. NSts and induction at 39 weeks. Brigido Arias MD Nausea/vomiting in 05/11/2018 Overview: 05/11/2018Patient is complaining of nausea in .Denies vomiting. Vitamin B6 recommended. Advised patient to call/come in if she is unable to keep any food or fluids down in a 24-hour period. TKRN Cervical high risk human pap illomavirus (HPV) DNA test positive 08/16/2013 08/22/2013 documented as of this encounter (statuses as of 11/10/2021) [facility] Narrative* Problem Noted Date Resolved Date IUGR (intrauterine growth re striction) affecting care of mother, third trimester, fetus 4 11/26/2018 01/21/2019 Overview: November 26, 2018 EFW is 7th percentile. NSts and induction at 39 weeks. Brigido Arias MD Nausea/vomiting in 05/11/2018 Overview: 05/11/2018Patient is complaining of nausea in .Denies vomiting. Vitamin B6 recommended. Advised patient to call/come in if she is unable to keep any food or fluids down in a 24-hour period. TKRN Cervical high risk human pap illomavirus (HPV) DNA test positive 08/16/2013 08/22/2013 documented as of this encounter (statuses as of 11/24/2021) [facility] Narrative* Problem Noted Date Resolved Date IUGR (intrauterine growth re striction) affecting care of mother, third trimester, fetus 4 11/26/2018 01/21/2019 Overview: November 26, 2018 EFW is 7th percentile. NSts and induction at 39 weeks. Brigido Arias MD Nausea/vomiting in 05/11/2018 Overview: 05/11/2018Patient is complaining of nausea in .Denies vomiting. Vitamin B6 recommended. Advised patient to call/come in if she is unable to keep any food or fluids down in a 24-hour period. TKRN Cervical high risk human pap illomavirus (HPV) DNA test positive 08/16/2013 08/22/2013 documented as of this encounter (statuses as of 12/08/2021) [facility] Narrative* Problem Noted Date Resolved Date IUGR (intrauterine growth re striction) affecting care of mother, third trimester, fetus 4 11/26/2018 01/21/2019 Overview: November 26, 2018 EFW is 7th percentile. NSts and induction at 39 weeks. Brigido Arias MD Nausea/vomiting in 05/11/2018 Overview: 05/11/2018Patient is complaining of nausea in .Denies vomiting. Vitamin B6 recommended. Advised patient to call/come in if she is unable to keep any food or fluids down in a 24-hour period. TKRN Cervical high risk human pap illomavirus (HPV) DNA test positive 08/16/2013 08/22/2013 documented as of this encounter (statuses as of 01/05/2022) [facility] Narrative* Problem Noted Date Resolved Date IUGR (intrauterine growth re striction) affecting care of mother, third trimester, fetus 4 11/26/2018 01/21/2019 Overview: November 26, 2018 EFW is 7th percentile. NSts and induction at 39 weeks. Brigido Arias MD Nausea/vomiting in 05/11/2018 Overview: 05/11/2018Patient is complaining of nausea in .Denies vomiting. Vitamin B6 recommended. Advised patient to call/come in if she is unable to keep any food or fluids down in a 24-hour period. TKRN Cervical high risk human pap illomavirus (HPV) DNA test positive 08/16/2013 08/22/2013 documented as of this encounter (statuses as of 01/12/2022) [facility] Diagnosis 16 weeks gestation of - Primary state, incidental Short interval between pregnancies affecting , antepartum Encounter for supervision of other normal in first trimester [facility] Diagnosis 19 weeks gestation of - Primary state, incidental Short interval between pregnancies affecting , antepartum Encounter for supervision of other normal in second trimester [facility] this [facility]* Diagnosis Encounter for anatomic survey- Primary 19 weeks gestation of state, incidental [facility] Diagnosis 23 weeks gestation of - Primary state, incidental Short interval between pregnancies affecting , antepartum Encounter for supervision of other normal in second trimester [facility] this [facility]* Diagnosis 27 weeks gestation of - Primary state, incidental Encounter for supervision of other normal in second trimester [facility] this [facility]* Diagnosis Encounter for supervision of other normal in third trimester- Primary Need for vaccination Need for prophylactic vaccination and inoculation against unspecified single disease 29 weeks gestation of state, incidental [facility]* Diagnosis 31 weeks gestation of - Primary state, incidental Encounter for supervision of other normal in third trimester [facility] this [facility]* Diagnosis Encounter for supervision of other normal in third trimester- Primary 35 weeks gestation of state, incidental [facility] this [facility]* Diagnosis 36 weeks gestation of - Primary state, incidental Encounter for supervision of other normal in third trimester documented [facility]* Diagnosis Encounter for supervision of other normal in third trimester- Primary 38 weeks gestation of state, incidental [facility] this [facility] noteNo assessment information availableWWhite [facility] Work Phone: Evaluation note* Diagnosis 39 weeks gestation of - Primary state, incidental Encounter for supervision of other normal in third trimester [facility] this [facility]* Diagnosis Onset Date Resolution Status 37 weeks gestation of acute False labor after 37 completed weeks of gestation acute 39 weeks gestation of acute Active labor acute H/O LEEP acute Short interval between pregn ancies affecting , antepartum acute (spontaneous vaginal delivery) [facility] Work Phone: Evaluation note* Diagnosis Routine follow-up- Primary [facility] this [facility]* Diagnosis care and examination- Primary Routine follow-up [facility] this [facility]* Diagnosis Encounter for supervision of other normal in first trimester- Primary 12 weeks gestation of state, incidental Encounter for screening of mother Unspecified screening with uncertain dates in first trimester 7 weeks gestation of state, incidental 8 weeks gestation of state, incidental [facility] Encounter for supervision of other normal in second trimester- Primary 16 weeks gestation of state, incidental [facility] Diagnosis 20 weeks gestation of - Primary state, incidental Encounter for supervision of other normal in second trimester [facility] Diagnosis Encounter for anatomic survey- Primary 20 weeks gestation of state, incidental [facility]* Diagnosis Encounter for supervision of other normal in second trimester- Primary 24 weeks gestation of state, incidental [facility]* Diagnosis 28 weeks gestation of - Primary state, incidental Encounter for supervision of other normal in third trimester [facility] Diagnosis Encounter for supervision of other normal in third trimester- Primary 30 weeks gestation of state, incidental [facility]* Diagnosis Placental abnormality in third trimester- Primary 32 weeks gestation of state, incidental [facility]* Diagnosis Placental abnormality in third trimester- Primary 32 weeks gestation of state, incidental [facility]* Diagnosis Supervision of other high risk pregnancies, third trimester- Primary 34 weeks gestation of state, incidental 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 Other placental conditions affecting management of mother, antepartum [facility]* Diagnosis Encounter for ultrasound to check growth- Primary Encounter for routine screening for malformation using ultrasonics Placenta, abnormal, third trimester 36 weeks gestation of state, incidental Placenta, abnormal, third trimester- Primary [facility]* Diagnosis 36 weeks gestation of - Primary state, incidental Supervision of other high risk pregnancies, third trimester [facility]* Diagnosis Encounter for ultrasound to check growth- Primary Encounter for routine screening for malformation using ultrasonics Placenta, abnormal, third trimester 36 weeks gestation of state, incidental [facility] Diagnosis Supervision of other high risk pregnancies, third trimester- Primary 37 weeks gestation of state, incidental Circumvallate placenta, second trimester [facility]* Diagnosis Supervision of other high risk pregnancies, third trimester- Primary 38 weeks gestation of state, incidental Circumvallate placenta, second trimester [facility] this 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* Diagnosis Vaginal delivery- Primary Personal history of other genital system and obstetric disorders care and examination of lactating mother Encounter for screening for maternal depression documented in this encounter [facility]* Diagnosis care and examination- Primary Routine follow-up Screening for cervical cancer Screening for malignant neoplasm of the cervix Screening for human papillomavirus (HPV) Special screening examination for human papillomavirus (HPV) documented in this encounter [facility] for referral (narrative)* Diagnostic Procedure Only (Routine) - Authorized Specialty Diagnoses / Procedures Referred By Marco escalante Referred To Contact [facility] Diagnoses 16 weeks gestation of Short interval between pregnancies affecting , antepartum Encounter for supervision of other normal in first trimester Procedures OBSTETRIC ULTRASOUND WHI US PREG UTERUS AFTER 1ST TRIMEST GESTATION Adina Rivera APRN.CNM [address] [place] [address] [facility] [address] [place] [address] Referral ID Status Reason Start Date Expiration Date Visits Requested Visits Authorized [id number] Authorized Auto-Generat ed Referral 08/23/2021 08/23/2022 1 1 [facility] for referral (narrative)* Diagnostic Procedure Only (Routine) - Authorized Specialty Diagnoses / Procedures Referred By Contac t Referred To Contact [facility] Diagnoses Encounter for supervision of other normal in first trimester Encounter for screening of mother Procedures OBSTETRIC ULTRASOUND WHI US PREG UTERUS AFTER 1ST TRIMEST GESTATION Brigido Arias MD [address] [place] [address] [facility] [address] [address] Referral ID Status Reason Start Date Expiration Date Visits Requested Visits Authorized [id number] Authorized Auto-Generat ed Referral 06/15/2023 06/14/2024 1 1 [facility] for referral (narrative)* Diagnostic Procedure Only (Routine) - Authorized Specialty Diagnoses / Procedures Referred By Contac t Referred To Contact [facility] Diagnoses 28 weeks gestation of Encounter for supervision of other normal in third trimester Procedures OBSTETRIC ULTRASOUND WHI US PREG UTERUS AFTER 1ST TRIMEST GESTATION Michelle Ho MD [address] [place] [address] [facility] [email or web address] [place] [address] Referral ID Status Reason Start Date Expiration Date Visits Requested Visits Authorized [id number] Authorized Auto-Generat ed Referral 10/05/2023 10/04/2024 1 1 [facility] for referral (narrative)* Diagnostic Procedure Only (Routine) - Closed Specialty Diagnoses / Procedures Referred By Contac t Referred To Contact [facility] Diagnoses Placenta, abnormal, third trimester Procedures OBSTETRIC ULTRASOUND WHI US PREG UTERUS AFTER 1ST TRIMEST GESTATION Hilda Nixon MD [address] [place] [address] [facility] [address] [place] [address] Referral ID Status Reason Start Date Expiration Date V isits Requested Visits Authorized [id number] Closed Auto-Generate d Referral 11/30/2023 05/07/2024 1 1 T [facility] for referral (narrative)No reason for referral information [facility] Work Phone: Chief Complaint and Reason for Visit Chief Complaint R/O LABOR Chief Complaint R/O LABOR VAGINAL DELIVERY Reason for Visit 37 weeks gestation o f False labor after 37 completed weeks of gestation 39 weeks gestation of Active labor H/O LEEP Short interval between pregnancies affecting , antepartum (spontaneous vaginal delivery) Chief Complaint Admit Date LEFT WRIST September 06, 2024 11:09a m room September 06, 2024 11:23a m LEFT WRIST September 10, 2024 3:17pm LT WRIST GANGLION CYST October 02, 2024 2: 08pm Reason for Visit Admit Date Ganglion cyst of dorsum of left wrist Ma y 2024 11:09am Ganglion cyst of dorsum of left wrist Ma y 2024 3:17pm Chief Complaint Admit Date LEFT WRIST September 06, 2024 11:09a m room September 06, 2024 11:23a m LEFT WRIST September 10, 2024 3:17pm LT WRIST GANGLION CYST October 02, 2024 2: 08pm ULTRASOUND RESULTS October 16, 2024 2:34 pm Reason for Visit Admit Date Ganglion cyst of dorsum of left wrist Ma y 2024 11:09am Ganglion cyst of dorsum of left wrist Ma y 2024 3:17pm Ganglion cyst of dorsum of left wrist Ju ne 2024 2:34pm Advance Directives No Advanced Directives Records Found Advance Directive Response Recorded Date/ Time Living Will Yes May 10 12:59am Power of Sales Floor Manager Yes May 10 12:59am Advance Directive Response Recorded Date/ Time Living Will No February 03, 2022 6:56am Power of Sales Floor Manager No January 6:56am Health Concerns Problem Noted Date Diagnosed Date [facility] - [facility] 05/18/2023 [place] - [place] 05/18/2023 Problem Noted Date Diagnosed Date [facility] - [facility] 05/18/2023 Education - [place] 05/18/2023 Active Problems Noted Date Diagnosed Date [facility] - [facility] 05/18/2023 Education - [place] 05/18/2023 Summary Purpose Family History No Family History Records FoundNo Family History Records Found Additional Source Comments Source Comments (unrecognize d section and content) In the event this informatio n is protected by the Federal Confidentiality of Alcohol and Drug Abuse Patient Records regulations: The Federal rules restrict any use of the information to criminally investigate or prosecute any alcohol or drug abuse patient.[facility] the event this information is protected by the Federal Confidentiality of Alcohol and Drug Abuse Patient Records regulations: The Federal rules restrict any use of the information to criminally investigate or prosecute any alcohol or drug abuse patient.[facility] the event this information is protected by the Federal Confidentiality of Alcohol and Drug Abuse Patient Records regulations: The Federal rules restrict any use of the information to criminally investigate or prosecute any alcohol or drug abuse patient.[facility] the event this information is protected by the Federal Confidentiality of Alcohol and Drug Abuse Patient Records regulations: The Federal rules restrict any use of the information to criminally investigate or prosecute any alcohol or drug abuse patient.[facility] the event this information is protected by the Federal Confidentiality of Alcohol and Drug Abuse Patient Records regulations: The Federal rules restrict any use of the information to criminally investigate or prosecute any alcohol or drug abuse patient.[facility] the event this information is protected by the Federal Confidentiality of Alcohol and Drug Abuse Patient Records regulations: The Federal rules restrict any use of the information to criminally investigate or prosecute any alcohol or drug abuse patient.[facility] the event this information is protected by the Federal Confidentiality of Alcohol and Drug Abuse Patient Records regulations: The Federal rules restrict any use of the information to criminally investigate or prosecute any alcohol or drug abuse patient.[facility]In the event this information is protected by the Federal Confidentiality of Alcohol and Drug Abuse Patient Records regulations: The Federal rules restrict any use of the information to criminally investigate or prosecute any alcohol or drug abuse patient.[facility] the event this information is protected by the Federal Confidentiality of Alcohol and Drug Abuse Patient Records regulations: The Federal rules restrict any use of the information to criminally investigate or prosecute any alcohol or drug abuse patient.[facility] the event this information is protected by the Federal Confidentiality of Alcohol and Drug Abuse Patient Records regulations: The Federal rules restrict any use of the information to criminally investigate or prosecute any alcohol or drug abuse patient.[facility] the event this information is protected by the Federal Confidentiality of Alcohol and Drug Abuse Patient Records regulations: The Federal rules restrict any use of the information to criminally investigate or prosecute any alcohol or drug abuse patient.[facility] the event this information is protected by the Federal Confidentiality of Alcohol and Drug Abuse Patient Records regulations: The Federal rules restrict any use of the information to criminally investigate or prosecute any alcohol or drug abuse patient.[facility] Hospital[facility] the event this information is protected by the Federal Confidentiality of Alcohol and Drug Abuse Patient Records regulations: The Federal rules restrict any use of the information to criminally investigate or prosecute any alcohol or drug abuse patient.[facility] the event this information is protected by the Federal Confidentiality of Alcohol and Drug Abuse Patient Records regulations: The Federal rules restrict any use of the information to criminally investigate or prosecute any alcohol or drug abuse patient.[facility] the event this information is protected by the Federal Confidentiality of Alcohol and Drug Abuse Patient Records regulations: The Federal rules restrict any use of the information to criminally investigate or prosecute any alcohol or drug abuse patient.[facility] HospitalIn the event this information is protected by the Federal Confidentiality of Alcohol and Drug Abuse Patient Records regulations: The Federal rules restrict any use of the information to criminally investigate or prosecute any alcohol or drug abuse patient.[facility]In the event this information is protected by the Federal Confidentiality of Alcohol and Drug Abuse Patient Records regulations: The Federal rules restrict any use of the information to criminally investigate or prosecute any alcohol or drug abuse patient.[facility] the event this information is protected by the Federal Confidentiality of Alcohol and Drug Abuse Patient Records regulations: The Federal rules restrict any use of the information to criminally investigate or prosecute any alcohol or drug abuse patient.[facility]In the event this information is protected by the Federal Confidentiality of Alcohol and Drug Abuse Patient Records regulations: The Federal rules restrict any use of the information to criminally investigate or prosecute any alcohol or drug abuse patient.[facility]In the event this information is protected by the Federal Confidentiality of Alcohol and Drug Abuse Patient Records regulations: The Federal rules restrict any use of the information to criminally investigate or prosecute any alcohol or drug abuse patient.[facility] HospitalIn the event this information is protected by the Federal Confidentiality of Alcohol and Drug Abuse Patient Records regulations: The Federal rules restrict any use of the information to criminally investigate or prosecute any alcohol or drug abuse patient.[facility]In the event this information is protected by the Federal Confidentiality of Alcohol and Drug Abuse Patient Records regulations: The Federal rules restrict any use of the information to criminally investigate or prosecute any alcohol or drug abuse patient.[facility]In the event this information is protected by the Federal Confidentiality of Alcohol and Drug Abuse Patient Records regulations: The Federal rules restrict any use of the information to criminally investigate or prosecute any alcohol or drug abuse patient.[facility]In the event this information is protected by the Federal Confidentiality of Alcohol and Drug Abuse Patient Records regulations: The Federal rules restrict any use of the information to criminally investigate or prosecute any alcohol or drug abuse patient.[facility] the event this information is protected by the Federal Confidentiality of Alcohol and Drug Abuse Patient Records regulations: The Federal rules restrict any use of the information to criminally investigate or prosecute any alcohol or drug abuse patient.[facility]In the event this information is protected by the Federal Confidentiality of Alcohol and Drug Abuse Patient Records regulations: The Federal rules restrict any use of the information to criminally investigate or prosecute any alcohol or drug abuse patient.[facility]In the event this information is protected by the Federal Confidentiality of Alcohol and Drug Abuse Patient Records regulations: The Federal rules restrict any use of the information to criminally investigate or prosecute any alcohol or drug abuse patient.[facility]In the event this information is protected by the Federal Confidentiality of Alcohol and Drug Abuse Patient Records regulations: The Federal rules restrict any use of the information to criminally investigate or prosecute any alcohol or drug abuse patient.[facility]In the event this information is protected by the Federal Confidentiality of Alcohol and Drug Abuse Patient Records regulations: The Federal rules restrict any use of the information to criminally investigate or prosecute any alcohol or drug abuse patient.[facility] HospitalIn the event this information is protected by the Federal Confidentiality of Alcohol and Drug Abuse Patient Records regulations: The Federal rules restrict any use of the information to criminally investigate or prosecute any alcohol or drug abuse patient.[facility] HospitalIn the event this information is protected by the Federal Confidentiality of Alcohol and Drug Abuse Patient Records regulations: The Federal rules restrict any use of the information to criminally investigate or prosecute any alcohol or drug abuse patient.[facility] HospitalIn the event this information is protected by the Federal Confidentiality of Alcohol and Drug Abuse Patient Records regulations: The Federal rules restrict any use of the information to criminally investigate or prosecute any alcohol or drug abuse patient.[facility]In the event this information is protected by the Federal Confidentiality of Alcohol and Drug Abuse Patient Records regulations: The Federal rules restrict any use of the information to criminally investigate or prosecute any alcohol or drug abuse patient.[facility]In the event this information is protected by the Federal Confidentiality of Alcohol and Drug Abuse Patient Records regulations: The Federal rules restrict any use of the information to criminally investigate or prosecute any alcohol or drug abuse patient.[facility] HospitalIn the event this information is protected by the Federal Confidentiality of Alcohol and Drug Abuse Patient Records regulations: The Federal rules restrict any use of the information to criminally investigate or prosecute any alcohol or drug abuse patient.[facility] Reason for Visit (unrecogniz ed section and content) Reason Onset Date Comments Care 08/23/2021 Reason Onset Date Comments Care 09/15/2021 Reason Comments US Specialty Diagnoses / Procedures Referred By Contac t Referred To Contact [facility] Diagnoses 16 weeks gestation of Short interval between pregnancies affecting , antepartum Encounter for supervision of other normal in first trimester Procedures OBSTETRIC ULTRASOUND WHI US PREG UTERUS AFTER 1ST TRIMEST GESTATION Adina Rivera APRN.[facility] [address] [address] [facility] [address] [place] [address] Referral ID Status Reason Start Date Expiration Date V isits Requested Visits Authorized [id number] Closed Auto-Generate d Referral 08/23/2021 08/23/2022 1 1 Reason Onset Date Comments Care 10/13/2021 Reason Onset Date Comments Care 11/10/2021 Reason Onset Date Comments Care 11/24/2021 Reason Onset Date Comments Care 12/08/2021 Reason Onset Date Comments Care 01/05/2022 Reason Onset Date Comments Care 01/12/2022 Reason Onset Date Comments Care 01/21/2022 Reason Onset Date Comments Care 02/02/2022 Reason Comments Ob Delivery Note Reason Comments Early Reason Comments Routine Reason Onset Date Comments Care 06/15/2023 Reason Onset Date Comments Care 07/13/2023 Reason Onset Date Comments Care 08/10/2023 Specialty Diagnoses / Procedures Referred By Contac t Referred To Contact [facility] Diagnoses Encounter for supervision of other normal in first trimester Encounter for screening of mother Procedures OBSTETRIC ULTRASOUND WHI US PREG UTERUS AFTER 1ST TRIMEST GESTATION Brigido Arias MD [address] [place] [address] [facility] [address] [place] [address] Referral ID Status Reason Start Date Expiration Date V isits Requested Visits Authorized [id number] Closed Auto-Generate d Referral 06/15/2023 06/14/2024 1 1 Reason Onset Date Comments Care 09/07/2023 Reason Comments Network Systems Analyst - Other PRAF Reason Onset Date Comments Care 10/05/2023 Reason Onset Date Comments Care 10/19/2023 Specialty Diagnoses / Procedures Referred By Contac t Referred To Contact [facility] Diagnoses 28 weeks gestation of Encounter for supervision of other normal in third trimester Procedures OBSTETRIC ULTRASOUND WHI US PREG UTERUS AFTER 1ST TRIMEST GESTATION Michelle Ho MD [address] [place] [address] [facility] [address] [place] [address] Referral ID Status Reason Start Date Expiration Date V isits Requested Visits Authorized [id number] Closed Auto-Generate d Referral 10/05/2023 10/04/2024 1 1 Reason Onset Date Comments Care 11/06/2023 Reason Onset Date Comments Care 11/17/2023 Reason Comments Orders Reason Onset Date Comments Care 11/30/2023 Specialty Diagnoses / Procedures Referred By Contac t Referred To Contact [facility] Diagnoses Placenta, abnormal, third trimester Procedures OBSTETRIC ULTRASOUND WHI US PREG UTERUS AFTER 1ST TRIMEST GESTATION Hilda Nixon MD [address] [place] [address] [facility] [address] [place] [address] Referral ID Status Reason Start Date Expiration Date V isits Requested Visits Authorized [id number] Closed Auto-Generate d Referral 11/30/2023 05/07/2024 1 1 Reason Onset Date Comments Care 12/07/2023 Reason Onset Date Comments Care 12/14/2023 Reason Onset Date Comments Care 12/21/2023 Reason Comments Care Goals (unrecognized section and content) Goals may be documented in a n alternate sectionGoals may be documented in an alternate sectionGoals may be documented in an alternate section INFORMATION SOURCE (unrecogn ized section and content) DATE CREATED AUTHOR 02/11/2024 [facility] DATE CREATED AUTHOR AUTHOR'S MAHAMED ATION 10/23/2024 [facility] Care Teams (unrecognized sec tion and content) Team Status: Active Member Role Status Dates No Primary Care Physician Primary Care Provider Active Team Status: Inactive Member Role Status Dates No Primary Care Physician Primary Care Provider Active Start: September 06, 2024 End: September 06, 2024 No Primary Care Physician Referring Provider Active Start: September 06, 2024 End: September 06, 2024 JONELLE Livingston Attending Provider Active Start: September 06, 2024 End: September 06, 2024 Team Status: Inactive Member Role Status Dates No Primary Care Physician Primary Care Provider Active Start: September 06, 2024 End: September 06, 2024 Dr. Jovani Tom MD Attending Provider Active S tart: September 06, 2024 End: September 06, 2024 Team Status: Inactive Member Role Status Dates No Primary Care Physician Primary Care Provider Active Start: September 10, 2024 End: September 10, 2024 No Primary Care Physician Referring Provider Active Start: September 10, 2024 End: September 10, 2024 Dr. Balwinder Richardson MD Attending Provider Active Start: September 10, 2024 End: September 10, 2024 Team Status: Inactive Member Role Status Dates No Primary Care Physician Primary Care Provider Active Start: October 02, 2024 End: October 02, 2024 Dr. Balwinder Richardson MD Attending Provider Active Start: October 02, 2024 End: October 02, 2024 Dr. Balwinder Richardson MD Referring Provider Active Start: October 02, 2024 End: October 02, 2024 Team Status: Inactive Member Role Status Dates No Primary Care Physician Primary Care Provider Active Start: September 10, 2024 End: September 10, 2024 Dr. Balwinder Richardson MD Attending Provider Active Start: September 10, 2024 End: September 10, 2024 JONELLE Livingston Referring Provider Active Start: September 10, 2024 End: September 10, 2024 Team Status: Inactive Member Role Status Dates No Primary Care Physician Primary Care Provider Active Start: October 16, 2024 End: October 16, 2024 No Primary Care Physician Referring Provider Active Start: October 16, 2024 End: October 16, 2024 Dr. Balwinder Richardson MD Attending Provider Active Start: October 16, 2024 End: October 16, 2024 FOR RECORDS PERTAINING TO PATIENTS WHO ARE OR HAVE BEEN ENROLLED IN A CHEMICAL DEPENDENCY/SUBSTANCEABUSE PROGRAM, SOME INFORMATION MAY BE OMITTED. This clinical summary was aggregated from multiple sources. Caution should be exercised in using it in the provision of clinical care. This summary normalizes information from multiple sources, and as a consequence, information in this document may materially change the coding, format and clinical context of patient data. In addition, data may be omitted in some cases. CLINICAL DECISIONS SHOULD BE BASED ON THE PRIMARY CLINICAL RECORDS. [facility] [employer] [facility]. provides no warranty or guarantee of the accuracy or completeness of information in this document.
[2024-11-05] MEDS: Lactated Ringers 1,000 ML 15 ML IV (06:43)
[2024-11-05 06:46] LABS: Internal QC Validated? YES +Cl - CLEAR BKGD
[2024-11-05 06:47] LABS: Pregnancy, Urine Negative Negative; Record Kit Lot#,Urine Preg 0000947241
--- NOTE | 2024-11-05 07:12 | PRE.ANES_ITS ---
ASA Classification* ASA Classification ASA Classification: 1 Assessment & Plan Anesthesia* Anesthesia Assessment Anesthesia Assessment: Discussed sedation and/or anesthesia options, risks, benefits, and alternatives with patient/parents/legal guardian/POA. Questions invited. The patient/parents/legal guardian/POA seems to understand and agrees to proceed with anesthesia plan. Reviewed the physical assessment, medical history, allergy history and patient home medications list prior to surgery/procedure/anesthetic and documented any changes. Performed airway and anesthesia risk assessments. Anesthesia Type Anesthesia Type: MAC History Source History Obtained from:: Patient and Chart Anesthesia Focused Assessment* Temperature: 98.8 F Pulse Rate: 71 Blood Pressure: 113/74 Respiratory Rate: 16 Pulse Ox: 99 Oxygen Delivery Method: Room Air Airway Assessment Mouth opens: >3 cm Mallampati Score: I Teeth Condition: Intact Neck Range of motion (ROM): Full ROM Labs Anesthesia Preop lab: CBC WBC 10.9 K/mm3 (4.4-11.0) 12/27/23 06:50 12/27/23 RBC 3.55 M/mm3 (4.2-5.4) L 12/27/23 06:50 12/27/23 Hgb 11.5 g/dL (12.0-15.0) L 12/27/23 06:50 4 Hct 32.9 % (37-47) L 12/27/23 06:50 12/27/23 Plt Count 117 K/mm3 (150-450) L 12/27/23 06:50 12/27/23 CHEMISTRY COAG Urine Test Negative Negative 11/05/24 06:20 11/05/24 Pre-Assessment Diagnosis/Proposed Procedure Planned Operative Procedure(s): (L) Excision ganglion cyst left dorsal wrist Anesthesia History Anesthesia History - 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 When Was Last Pacemaker Check QUESTION #4 FULL TEXT: You/Your Family Experience fever (hyperthermia) with Anesthesia Last Oral Intake Last Oral intake: Last Oral Intake NPO since 05:15 11/05/24 06:38 Meds taken in AM with sips of No 11/05/24 06:38 water? Meds patient instructed to take am of surgery PONV PONV - afloat cryptologic manager: PONV - afloat cryptologic manager Female Yes 10/22/24 13:20 HX of Motion Sickness Yes 10/22/24 13:20 HX of N/V After Surgery No 10/22/24 13:20 Non-Smoker Yes 10/22/24 13:20 Duration of Surgery greater No 10/22/24 13:20 than 60 minutes Number of Risk Factors 3 10/22/24 13:20 PONV Score Moderate Risk 10/22/24 13:20 Height & Weight Height & Weight: Anesthesia: Height & Weight Height 5 ft 1 in 11/05/24 06:38 Weight: 55 kg 11/05/24 06:38 Body Mass Index (BMI) 22.8 11/05/24 06:38 Respiratory Assessment Respiratory Assessment - afloat cryptologic manager: Respiratory Tract Infection Hx - afloat cryptologic manager Hx Respiratory Tract Infection No 10/22/24 13:20 STOP Sleep Apnea STOP Sleep Apnea - afloat cryptologic manager: STOP Sleep Apnea - afloat cryptologic manager Hx Hypertension No 10/22/24 13:20 Hx Sleep Apnea No 10/22/24 13:20 CPAP BIPAP Do you snore loudly (louder No 10/22/24 13:20 than talking or can be heard Do you often feel tired/ No 10/22/24 13:20 fatigued/ sleepy during daytime? Has anyone observed you stop No 10/22/24 13:20 breathing during sleep? STOP Results Negative 10/22/24 13:20 QUESTION #5 FULL TEXT : Do you snore loudly (louder than talking or can be heard through closed doors)? 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 Specify any problems Hx of Preganancy in last 3 No 10/22/24 13:20 Months Nurse Filling Out Transfusion [facility] 10/22/24 13:20 & Questions: Date: 10/22/24 10/22/24 13:20 Time: 13:24 10/22/24 13:20 Patient unable to answer at this time (ie. confused, unrespo /Reproduction History /Reproductive History - afloat cryptologic manager: /Reproductive Hx- afloat cryptologic manager Hx Now No 10/22/24 13:20 Gestational Age (in weeks): EDC: Hx Hx Para Hx Section SAB No 10/22/24 13:20 Active Medications Active Medications: Current Medications Generic Name Dose Route Start Last Admin Trade Name Freq PRN Reason Stop Dose Admin Cefazolin Sodium 2 gm/ Sodium 110 mls @ 200 mls/hr 11/05/24 07:30 Chloride IV 11/05/24 08:02 INTRAOP ONE Lactated Ringer's 1,000 mls @ 15 mls/hr 11/05/24 06:30 11/05/24 06:43 IV 15 mls/hr .Q48H RAFAEL Administration PFSH Medical History Wears glasses Low iron Non-smoker Circumvallate placenta depression Anxiety Home Medications ?Medication ?Instructions ?Recorded ?Last Taken ?Type NK 09/10/24 Unknown History Allergy/AdvReac Type Severity Reaction Status Date / Time No Known Allergies Allergy Verified 11/05/24 06:34 Surgical History [place] teeth removed H/O LEEP Social History Smoking Status: Never smoker Review of Systems (Anesthesia) ROS Narrative System reviewed and no additional complaints, except as documented.
--- NOTE | 2024-11-05 07:29 | PCM.HP.STD ---
HPI - General HPI Narrative Heidy Garcia is a delightful 34-year-old female with no significant contributory past medical history who presents with a left wrist dorsal ganglion cyst as a referral from [facility] ([facility]). Patient reports that the cyst has been there for several years but has been getting larger recently and causes her an aching dull irritation pain after she uses her left wrist to carry her children. She has 4 young children, including a toddler and an 8-month-old. She is currently breast-feeding. Patient may have jammed her hand playing sports growing up but does not remember any severe trauma to the hand or wrist. She does have a history of doing [employer] and lifting weights, but she currently just does light/endurance weight lifting. No personal or family history of bleeding or clotting problems. She is not a smoker. 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 Here to discuss her ultrasound results and the timing of ganglion cyst removal. She reports that she has pain in the cyst from time to time, and would like it removed not aspirated. Current Encounter (DATE OF SURGERY H&P UPDATE): I saw and examined the patient this morning in pre-operative holding. We discussed risks and benefits of today's surgery and they would like to proceed. NO CHANGE in health history since last seen and evaluated. Ready to proceed with surgery. [facility] Medical History Wears glasses Low iron Non-smoker Circumvallate placenta depression Anxiety Home Medications ?Medication ?Instructions ?Recorded ?Last Taken ?Type NK 09/10/24 Unknown History Allergy/AdvReac Type Severity Reaction Status Date / Time No Known Allergies Allergy Verified 11/05/24 06:34 Surgical History [place] teeth removed H/O LEEP Social History Smoking Status: Never smoker Vital Signs Vital Signs Vital Signs: 11/05/24 06:38 11/05/24 06:38 11/05/24 07:14 Temperature 98.8 F 98.8 F Temperature Source Temporal Pulse Rate 71 71 Respiratory Rate 16 16 Respiratory Pattern Normal Blood Pressure 113/74 113/74 Blood Pressure Mean 87 Blood Pressure Source Monitor Blood Pressure Position Semi-Fowlers Blood Pressure Location Right Arm Pulse Ox 99 99 Oxygen Delivery Method Room Air Room Air Weight Weight: 121 lb 4.068 oz Body Mass Index (BMI) 22.8 Physical Exam Narrative Examined again today Inspection: 3 x 3 cm dorsal wrist mass within the 3/4 interval Palpation: No SL ligament instability (negative Redmond shift test). The wrist mass is mobile. Motor: Able to bend and extend all MP, PIP, and DIP joints. Sensory: Intact to light touch on the radial and ulnar borders. No numbness on the dorsal radial hand Vascular: Finger tips are warm and well perfused with <2 second capillary refill. Results Lab / Micro Data Labs: Laboratory Results - last 24 hr 11/05/24 06:20: Urine Test Negative Assessment & Plan Assessment/Plan (1) Ganglion cyst of dorsum of left wrist: PLAN: We discussed the differential diagnosis for the mass. Common masses in the hand include ganglion cyst of tendon sheath, giant cell tumor of tendon sheath, and lipoma. All these masses are benign. We also discussed that over 95% of the masses found in the hand and fingers are benign, and not cancerous. Treatment options for these masses include observation vs surgical excision. Alternatively, if the mass is a ganglion cyst of tendon sheath may potentially be treated with needle puncture if it is located in the midline over the flexor tendon. When the ganglion cyst is located off mid-line, overlying the course of digital nerve and artery, needle puncture will run the risk of nerve/artery injury.? Discussed post-operative splinting (1 month with wrist splint) and lifting precautions. Discussed risks of surgery like SBRN damage/nerve pain, infection, SL ligament disruption, infection, bleeding, and risks of anesthesia. After discussion, the patient would like to proceed with mass excision under local anesthesia [with] sedation. Plan to do this summer when the patient is done breast feeding and does not need to lift children as much (parents can assist). CPT codes for insurance prior authorization are as follows: 60287, [id number] Plan from 16 October 2024: I reiterated the above noted risks (including nerve injury and vessel ligament injury). We also talked about the risks of cyst recurrence, which is a possibility. We also talked about poor scarring. We discussed removal of the likely cyst and reviewed the ultrasound results. I talked to her about potential for persistent pain regardless of if we remove the cyst, and that there is no guarantees that removal of the cyst will improve any of her pain, and could actually make it worse/irritate the area. I also talked her about other options including aspiration or monitoring. She would like the cyst excised. Patient happy with the plan. INTERVAL H&P PLAN, DATE OF SURGERY: We will proceed with surgery today.
--- NOTE | 2024-11-05 07:30 | GANG_PTH ---
PATIENT: GAMAL ORDOÑEZ LOC: [facility] [place] U#:[id number] AGE/SX: 34/F ROOM: RE11/05/[address]: Dr. Balwinder Richardson MD : 1990 BED: DIS: 11/05/2024 SPEC #: [id number] RECD: 11/05/24 10:24 STATUS: HARISH REAntionette #: [id number] MARIO: 11/05/24 07:[address]: Balwinder Richardson DEPT: SURGICAL PATHOLOGY RECD BY: Dru Shankar ENTERED: 11/05/24 12:07 SP TYPE: GANGLION OT DR: Nicol Primary Care Phys Tissues: A - GANGLION CYST Procedures: Surgery Specimen Level III HEADER OPERATION: Excision ganglion cyst left dorsal wrist PRE-OP DIAGNOSIS: Ganglion cyst TISSUE SUBMITTED: A- Left wrist, ganglion cyst MICROSCOPIC DIAGNOSIS A. Wrist, left, dorsal, ganglion cyst, excision: - Ganglion cyst. MICROSCOPIC DESCRIPTION Slides are reviewed. GROSS DESCRIPTION A. Received in formalin labeled with the patient's name and date of . Designated as ganglion cyst-left wrist are 2 irregular portions of but pink-white rubbery tissue, collectively measuring 1.3 x 0.7 x 0.2 cm. Entirely submitted in 1 cassette. IA 11/05/2024 CPT:33507
--- NOTE | 2024-11-05 07:36 | PCM.OPRPT ---
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: No Type of Anesthesia: Local MAC (10 cc of 0.25% Marcaine ) RN Documented Start/Stop Times: Operation Date: 11/05/24 07:30 Case Time Into Pre-Op 11/05/24 06:27 Out of Pre-Op 11/05/24 07:34 Anesthesia Start 11/05/24 07:38 Into Room 11/05/24 07:38 Procedure Start 11/05/24 08:02 Procedure End 11/05/24 08:58 Anesthesia End 11/05/24 09:02 Out of Room 11/05/24 09:02 Into Recovery 11/05/24 09:05 Out of Recovery 11/05/24 09:40 Into Phase II Recovery 11/05/24 09:41 Out of Phase II 11/05/24 10:28 Procedure Start Time: 08:02 Procedure Stop Time: 08:58 Select all DRAINS/GRAFTS/IMPLANTS that apply: None Estimated Blood Loss: minimal Specimen collected: Yes Description of specimen(s) removed: Left wrist ganglion cyst Description of surgery: Indications: Patient is a delightful 34 YO female with a left dorsal wrist ganglion cyst. Presents today for excision. I discussed the risks, benefits, and alternatives to the procedure, and she elected to proceed. I marked the cyst with her in pre-operative holding and she was in agreement with the marking. Procedure Details: A time-out was performed to confirm patient identity, site of surgery, and planned procedures. After that, the patient was transferred over the the operating table in supine position. Sequential compressive stockings were applied to bilateral lower extremities and activated. Sedation was preformed by the anesthesia team. A non-sterile tourniquet was placed on the upper arm of the operative extremity.?A local block with Marcaine was then preformed. The operative extremity was then prepped and draped in the standard sterile fashion. Another time-out was performed to confirm patient identity, review patient allergy, confirm site of surgery, planned procedures, and discuss antibiotic plans.? The tourniquet was inflated to 250 mm Hg, and a longitudinal incision was made over the cyst. Dissection was performed under loupe magnification, to mobilize the cyst from the surrounding tissues. The cyst was circumferentially dissected and excised. There was an identifiable stalk at the base of the mass that travelled deep towards the dorsal radial carpal joint capsule within the 3/4 interval. The stalk was excised at the dorsal joint capsule level, and the edges of the capsular defect was cauterized using bipolar. The excised cyst was sent to pathology for analysis.Tourniquet was released, and hemostasis achieved using bipolar cautery. The wound was irrigated using sterile normal saline. The incision was closed in a single layer using 4-0 Monocryl deep dermal sutures, a 4-0 Monocryl running subcuticular suture and steristrips. The intermediate closure was 3 cm. A short arm splint was applied to immobilize the wrist joint to allow healing/sealing of the capsular defect. All counts were correct at the conclusion of the case. The patient tolerated the procedure without any immediate complications, and was transported to the recovery room area in good condition.?? Post-operative plan: F/u in 1 week to review pathology and for a wound check. Surgical Findings: Consistent with ganglion cyst Complications Complications: No
[2024-11-05] MEDS: Cefazolin 2 GM in 0.9% Normal Saline (100mL Bag) 100 ML IV (07:38)
[2024-11-05] MEDS: Bupiv/Epi 0.25% 30 ML Vial (07:54)
--- NOTE | 2024-11-05 09:05 | PCM.POST.ANE ---
Anesthesia: Postop Eval I Current Vital Signs Temperature: 97 F Pulse Rate: 73 Blood Pressure: 93/50 Respiratory Rate: 16 Pulse Ox: 95 Oxygen Delivery Method: Room Air Assessment Airway patent: Yes Spontaneous unlabored respirations: Yes Mental status: Calm and Asleep nausea: No Vomiting: No Anesthesia Complication: No Fluid Hydration Crystalloid volume administer (ml): 700 Total IV fluid infused: 700 Progress Note Anesthesia document: Postop Eval 1 completed: Yes
--- NOTE | 2024-11-05 11:22 | POSTOPAN2_ITS ---
Anesthesia Postop Eval I Sum Postop Eval Completion status Anesthesia document: Postop Eval 1 completed: Yes Anesthesia Postop Eval I Summary Anesthesia Postop Eval I Summary: Anesthesia Postop Eval I: Assessment Summary Airway patent Yes 11/05/24 09:06 UNDER [email or web address] Spontaneous unlabored Yes 11/05/24 09:06 UNDER GROUND [email or web address] respirations Mental status Calm,Asleep 11/05/24 09:06 UNDER [email or web address] [email or web address] nausea No 11/05/24 09:06 UNDER GROUND [email or web address].GDOTT Vomiting No 11/05/24 09:06 UNDER GROUND [email or web address].[email or web address] Anesthesia Postop Eval I: Fluid Summary Crystalloid volume administer 700 11/05/24 09:06 UNDER GROUND MINER.GDOTT (ml) Colloids volume administered ( ml) Blood Product volume administered (ml) Total IV fluid infused 700 11/05/24 09:06 UNDER GROUND MINER.GDOTT Anesthesia Postop Eval I: Summary Notes Anesthesia Complication No 11/05/24 09:06 UNDER GROUND [email or web address].[email or web address] Anesthesia Complication Comment: Post-operative progress note Anesthesia: Postop Eval II Evaluation Mental status: Awake and Calm Pain Level: 3 nausea: No Vomiting: No Complications Anesthesia Complication: No
--- NOTE | 2024-11-05 11:22 | PCM.POSTANE2 ---
Anesthesia Postop Eval I Sum Postop Eval Completion status Anesthesia document: Postop Eval 1 completed: Yes Anesthesia Postop Eval I Summary Anesthesia Postop Eval I Summary: Anesthesia Postop Eval I: Assessment Summary Airway patent Yes 11/05/24 09:06 ROOF [email or web address] [email or web address] Spontaneous unlabored Yes 11/05/24 09:06 ROOF TILE LAYER.[email or web address] respirations Mental status Calm,Asleep 11/05/24 09:06 ROOF [email or web address].GDOTT nausea No 11/05/24 09:06 ROOF TILE LAYER.GDOTT Vomiting No 11/05/24 09:06 ROOF TILE LAYER.GDOTT Anesthesia Postop Eval I: Fluid Summary Crystalloid volume administer 700 11/05/24 09:06 ROOF TILE LAYER.GDOTT (ml) Colloids volume administered ( ml) Blood Product volume administered (ml) Total IV fluid infused 700 11/05/24 09:06 ROOF TILE LAYER.GDOTT Anesthesia Postop Eval I: Summary Notes Anesthesia Complication No 11/05/24 09:06 ROOF TILE LAYER.LIONOTT Anesthesia Complication Comment: Post-operative progress note Anesthesia: Postop Eval II Evaluation Mental status: Awake and Calm Pain Level: 3 nausea: No Vomiting: No Complications Anesthesia Complication: No
== END 2024-11-05 10:29 | disposition home or self-care (01) ==
LOC: SDC 06:11 → AC 06:12
PROVIDERS: Anesthesiology; Referring Provider Surgery Plastic and Reconstructive Surgery; Visit Provider Surgery Plastic and Reconstructive Surgery
PROC: (CPT 25111; principal; 2024-11-05 07:15)
DX: M67.432 Ganglion, left wrist (principal)
CPT/HCPCS: 25111; 01810; 81025; 88304; J2405